=== PATIENT | female | born 1995 | race Caucasian/White ===

== ENCOUNTER 2017-09-20 23:32 | Emergency (ER) | payer SELFPAY | END 2017-09-20 23:54 | disposition left against medical advice (07) | LOC: ER 23:32 | DX: Z02.9 Encounter for administrative examinations, unspecified (principal) ==

== ENCOUNTER 2017-11-08 22:44 | Emergency (ER) | payer OTHER, SELFPAY ==
--- OUTSIDE RECORDS SUMMARY | 2017-11-08 22:46 | XMS REPORT | Clinical Summary ---
:1995 Author Organization [facility] Address [address] [place] [id number] Care Team Providers Name Role Phone Jhon Casillas MD Primary Care Provider Allergies Active Allergy Reactions Severity Noted Date Comments Penicillins Rash Low 02/03/2016 Current Medications Prescription Sig. Disp. Refills Start Date End Date Status QUEtiapine (SEROquel) TAKE 1 TABLET (50 30 tablet 0 02/22/2016 Active 50 MG tablet MG TOTAL) BY MOUTH 2 (TWO) TIMES A DAY. Active Problems No known active problems Family History Medical History Relation Name Comments No Known Problems Father No Known Problems Mother Relation Name Status Comments Father Alive Mother Alive Social History Tobacco Use Types Packs/Day Years Used Date Current Every Day Smoker Cigarettes Smokeless Tobacco: Never Used Alcohol Use Drinks/Week oz/Week Comments No Sex Assigned at Date Recorded Not on file Last Filed Vital Signs Not on file Plan of Treatment Health Maintenance Due Date Last Done Comments CHLAMYDIA SCREENING 2009 CERVICAL CANCER SCREENING 2014 INFLUENZA VACCINE 12/27/2017 Results Not on fileafter 11/07/2016
[2017-11-08 23:35] LABS: Urine Blood NEGATIVE (NEG); Urine Glucose NEGATIVE (NEG); Urine Protein NEGATIVE (NEG); Urine Specific Gravity 1.025 (1.005-1.030); Urine pH 5.5 (5.0-7.0)
[2017-11-08] MEDS ORDERED: NA CHLORIDE 0.9% 1,000 ML ONE (23:58)
[2017-11-08] MEDS ORDERED: ACETAMINOPHEN 500 MG TAB ONE (23:58)
[2017-11-09 00:48] LABS: Absolute Lymphocytes (CBC) 2.1 K/uL (0.7-4.9); Absolute Monocytes 1.3 K/uL (0.1-1.3); Absolute Neutrophil 10.3 K/uL (1.8-8.0); Basophils % 0.5 % (0-1.3); Eosinophils % 1.3 % (0-4.4); Hematocrit 35.1 % (36.0-45.0); Lymphocytes % 15.2 % (15.3-44.8); MCH 32.7 pg (27.0-35.0); MCV 92.7 fL (80-100); MPV 11.4 fL (7.6-11.3); Monocytes % 9.2 % (3.3-12.3); RBC Red Blood Cell Count 3.78 M/uL (3.86-4.86)
[2017-11-09 01:13] LABS: Bicarbonate 24 mEq/L (21-31); Glucose Level 79 mg/dL (65-120); Lipase 22 U/L (22-51); Potassium 3.1 mEq/L (3.6-5.0); Sodium Level 136 mEq/L (135-145)
[2017-11-09 01:19] LABS: ALT/SGPT 11 IU/L (10-60); AST/SGOT 17 IU/L (10-42); Albumin 3.4 g/dL (3.2-5.5); Alkaline Phosphatase 51 IU/L (42-121); Amylase Level 46 U/L (28-100); BUN Blood Urea Nitrogen 7 mg/dL (6-20); Bilirubin Direct < 0.1 mg/dL (0-0.2); Bilirubin Total 0.2 mg/dL (0.3-1.2); Protein, Total 6.6 g/dL (6.0-8.3)
[2017-11-09] MEDS ORDERED: POTASSIUM 25 MEQ EFFERV TAB ONE (02:10)
--- NOTE | 2017-11-09 03:08 | EDPHYS ---
Physician Documentation [facility] Name: Ann Kaufman Age: 22 yrs Sex: Female : 1995 Arrival Date: 11/08/2017 Time: 22:45 Bed 6 Private MD: ED Physician Tod Queen HPI: 11/08 23:15 This 22 yrs old Female presents to ER via Ambulatory with complaints of cp Abdominal Pain, Vaginal Pain - 19 Wks Preg. 23:15 The patient presents with abdominal pain in the lower abdomen. Onset: The cp symptoms/episode began/occurred today. The symptoms do not radiate. 23:15 Associated signs and symptoms: Pertinent negatives: anorexia, chest pain, constipation, cp diarrhea, dysuria, fever, hematuria, vaginal discharge, vomiting, vaginal bleeding or leakage of fluids. 23:15 The symptoms are described as crampy. Modifying factors: the symptoms are aggravated by cp pressure. Severity of pain: in the emergency department the pain is unchanged despite home interventions. Patient reports she is approximately 20 weeks gestation. 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 - Social history:: Smoking status: Patient uses tobacco products, 1/4 PPD. - Ebola Screening: : No symptoms or risks identified at this time. ROS: 23:20 Constitutional: Negative for body aches, chills, fever, poor PO intake. cp 23:20 Eyes: Negative for injury, pain, redness, and discharge. cp 23:20 ENT: Negative for drainage from ear(s), ear pain, sore throat, difficulty swallowing, difficulty handling secretions. 23:20 Cardiovascular: Negative for chest pain, edema, palpitations. 23:20 Respiratory: Negative for cough, shortness of breath, wheezing. 23:20 Abdomen/GI: Positive for abdominal pain, abdominal cramps, Negative for vomiting, diarrhea, constipation, anorexia, dysphagia, black/tarry stool, rectal bleeding. 23:20 Back: Negative for pain at rest, pain with movement, radiated pain. 23:20 : Negative for urinary symptoms, flank pain, vaginal bleeding, vaginal discharge, leakage of fluids. 23:20 MS/extremity: Negative for injury or acute deformity, decreased range of motion, pain, paresthesias. 23:20 Skin: Negative for cellulitis, rash. 23:20 Neuro: Negative for altered mental status, headache, weakness. 23:20 All other systems are negative. Exam: 23:28 Head/Face: Normocephalic, atraumatic. cp 23:28 Constitutional: The patient appears in no acute distress, alert, awake, non-toxic, well developed, well nourished, uncomfortable. 23:28 Eyes: Periorbital structures: appear normal, Conjunctiva: normal, no exudate, no cp injection, Sclera: no appreciated abnormality, Lids and lashes: appear normal, bilaterally. 23:28 ENT: External ear(s): are unremarkable, Nose: is normal, Mouth: Lips: moist, Oral mucosa: pink and intact, moist, Posterior pharynx: is normal, airway is patent, no erythema, no exudate. 23:28 Neck: ROM/movement: is normal, is supple, without pain, no range of motions limitations, no nuchal rigidity. 23:28 Chest/axilla: Inspection: normal, Palpation: is normal, no crepitus, no tenderness. 23:28 Cardiovascular: Rate: normal, Rhythm: regular, Edema: is not appreciated, JVD: is not appreciated. 23:28 Respiratory: the patient does not display signs of respiratory distress, Respirations: normal, no use of accessory muscles, no retractions, no splinting, no tachypnea, labored breathing, is not present, Breath sounds: are clear throughout, no decreased breath sounds, no stridor, no wheezing. 23:28 Abdomen/GI: Inspection: gravid appearance, is noted, Bowel sounds: active, all quadrants, Palpation: soft, in all quadrants, moderate abdominal tenderness, in the right lower quadrant and left lower quadrant, rebound tenderness, is not appreciated, involuntary guarding, is not appreciated. 23:28 Back: pain, is absent, ROM is normal, CVA tenderness, is absent, Straight leg raises: of both lower extremities does not illicit pain. 23:28 Musculoskeletal/extremity: Exam is negative for decreased range of motion, deformity, injury. 23:28 Skin: cellulitis, is not appreciated, no rash present. 23:28 Neuro: Orientation: to person, place \T\ time. Mentation: lucid, able to follow commands, Cerebellar function: is grossly normal, Motor: moves all fours, strength is normal, Sensation: no obvious gross deficits, Gait: is steady. Vital Signs: 23:12 BP 115 / 71; Pulse 93; Resp 18; Temp 99.1(O); Pulse Ox 99% ; Weight 81.65 kg; Height 5 ao ft. 3 in. (160.02 cm); Pain 7/10; 11/09 00:50 BP 99 / 61; Pulse 81; Resp 16; Pulse Ox 100% ; ao 02:30 BP 103 / 70; Pulse 79; Resp 16; Pulse Ox 100% on R/A; Pain 0/10; aa1 11/08 23:12 Body Mass Index 31.89 (81.65 kg, 160.02 cm) ao MDM: 11/08 23:06 Patient medically screened. cp 11/09 00:00 Differential diagnosis: appendicitis, Ovarian Torsion, Pelvic Inflammatory Disease, cp Pyelonephritis, urinary tract infection, pre-term labor. 03:05 Data reviewed: vital signs, nurses notes, lab test result(s). cp 03:05 Counseling: I had a detailed discussion with the patient and/or guardian regarding: the cp historical points, exam findings, and any diagnostic results supporting the discharge/admit diagnosis, the need for outpatient follow up, an OB/Gyne specialist, to return to the emergency department if symptoms worsen or persist or if there are any questions or concerns that arise at home. Response to treatment: the patient's symptoms have markedly improved after treatment, VSS. Pain improved with IV fluids and meds. FHTs noted. Will discharge to home for continued monitoring. 11/08 23:22 Order name: Urine Dipstick--Ancillary (enter results); Complete Time: 23:39 [facility] 11/08 23:22 Order name: Urine --Ancillary (enter results); Complete Time: 23:39 2 11/08 23:39 Interpretation: Normal except: URINE PREG POS. cp 11/08 23:40 Order name: Amylase, Serum; Complete Time: 01:46 cp 11/08 23:40 Order name: Basic Metabolic Panel; Complete Time: 01:46 11/09 01:46 Interpretation: Normal except: K 3.1; GFR 87. cp 11/08 23:40 Order name: CBC with Diff; Complete Time: 01:15 cp 11/09 01:15 Interpretation: Normal except: WBC 13.9; RBC 3.78; HCT 35.1; PLT 133; MPV 11.4; EDMUNDO% cp 73.8; LYM% 15.2; NEUT A 10.3. 11/08 23:40 Order name: Creatinine for Radiology; Complete Time: 01:15 cp 11/08 23:40 Order name: Hepatic Function; Complete Time: 01:46 cp 11/09 01:46 Interpretation: Normal except: BILIT 0.2. cp 11/08 23:40 Order name: Lipase; Complete Time: :46 cp 11/08 23:40 Order name: Urine Microscopic Only cp 11/08 23:40 Order name: Rh Type 11/09 02:07 Order name: Rh Typing; Complete Time: 02:12 EDMS 11/09 02:12 Interpretation: Reviewed. 11/08 23:40 Order name: IV Saline Lock; Complete Time: 00:19 cp 11/08 23:40 Order name: Labs collected and sent; Complete Time: 00:19 cp 11/08 23:40 Order name: FHT's; Complete Time: 00:47 cp Administered Medications: 00:10 Drug: Tylenol 1000 mg Route: PO; aa1 02:19 Follow up: Response: No adverse reaction; Pain is decreased aa1 00:18 Drug: NS 0.9% 1000 ml Route: IV; Rate: 1 bolus; Site: right antecubital; aa1 01:00 Follow up: IV Status: Completed infusion aa1 02:07 Drug: Potassium Effervescent Tablet 50 mEq Route: PO; aa1 02:56 Follow up: Response: No adverse reaction aa1 Disposition: 11/09/17 03:07 Discharged to Home. Impression: Lower abdominal pain, unspecified, related conditions, unspecified, second trimester. - Condition is Stable. - Discharge Instructions: Abdominal Pain During , Medicines During . - School release form, Medication Reconciliation Form, Thank You Letter, Antibiotic Education, Prescription Opioid Use form. - Follow up: Private Physician; When: private OB; Reason: Recheck today's complaints, next 1-2 days. - Problem is new. - Symptoms have improved. Addendum: 11/10/2017 06:00 Co-signature as Attending Physician, Tod Queen MD I agree with the assessment and c askew plan of care. Signatures: Dispatcher [employer] EDLizzie Jauregui, RN RN aa1 Tod Queen MD MD cha Page, Corey, PA PA cp Corrections: (The following items were deleted from the chart) 11/09 03:31 03:07 11/09/2017 03:07 Discharged to Home. Impression: Lower abdominal pain, aa1 unspecified; related conditions, unspecified, second trimester. Condition is Stable. Forms are Medication Reconciliation Form, Thank You Letter, Antibiotic Education, Prescription Opioid Use. Follow up: Private Physician; When: private OB; Reason: Recheck today's complaints, next 1-2 days. Problem is new. Symptoms have improved. cp
--- NOTE | 2017-11-09 03:08 | ER ---
Nurse's Notes [facility] Name: Ann Kaufman Age: 22 yrs Sex: Female : 1995 Arrival Date: 11/08/2017 Time: 22:45 Bed 6 Private MD: Diagnosis: Lower abdominal pain, unspecified; related conditions, unspecified, second trimester Presentation: 11/08 23:12 Presenting complaint: Patient states: pelvic pressure and cramping since this aa1 afternoon. Denies bleeding. Reports she is 20 weeks and has had confirmed IUP with her OB. Transition of care: patient was not received from another setting of care. Onset of symptoms was November 08, 2017. Risk Assessment: Do you want to hurt yourself or someone else? Patient reports no desire to harm self or others. Initial Sepsis Screen: Does the patient meet any 2 criteria? No. Patient's initial sepsis screen is negative. Does the patient have a suspected source of infection? No. Patient's initial sepsis screen is negative. Care prior to arrival: None. 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 - Social history:: Smoking status: Patient uses tobacco products, 1/4 PPD. - Ebola Screening: : No symptoms or risks identified at this time. Screenin:16 Abuse screen: Denies threats or abuse. Denies injuries from another. Nutritional aa1 screening: No deficits noted. Tuberculosis screening: No symptoms or risk factors identified. Fall Risk None identified. Assessment: 23:16 General: Appears in no apparent distress. comfortable, Behavior is calm, cooperative, aa1 appropriate for age. Pain: Complains of pain in groin and suprapubic area Quality of pain is described as crampy, pressure. Neuro: Level of Consciousness is awake, alert, obeys commands, Oriented to person, place, time, situation, Moves all extremities. Full function Gait is steady. Respiratory: Airway is patent Respiratory effort is even, unlabored, Respiratory pattern is regular, symmetrical. GI: Bowel sounds present X 4 quads. Abdomen is tender to palpation in suprapubic area. : Reports cramping, Denies vaginal bleeding. EENT: No signs and/or symptoms were reported regarding the EENT system. Derm: Skin is intact, is healthy with good turgor, Skin is pink, warm \T\ dry. Musculoskeletal: Circulation, motion, and sensation intact. Capillary refill < 3 seconds. 11/09 00:45 Reassessment: Patient appears in no apparent distress at this time. Patient and/or aa1 family updated on plan of care and expected duration. Pain level reassessed. Patient is alert, oriented x 3, equal unlabored respirations, skin warm/dry/pink. Awaiting lab results. 02:00 Reassessment: Patient appears in no apparent distress at this time. Patient and/or aa1 family updated on plan of care and expected duration. Pain level reassessed. Patient is alert, oriented x 3, equal unlabored respirations, skin warm/dry/pink. Awaiting lab results. 03:29 Reassessment: Patient appears in no apparent distress at this time. Patient is alert, aa1 oriented x 3, equal unlabored respirations, skin warm/dry/pink. Discussed d/c \T\ f/u instructions with pt \T\ significant other; denies questions or concerns at this time Patient states feeling better. Vital Signs: 11/08 23:12 BP 115 / 71; Pulse 93; Resp 18; Temp 99.1(O); Pulse Ox 99% ; Weight 81.65 kg; Height 5 ao ft. 3 in. (160.02 cm); Pain 7/10; 11/09 00:50 BP 99 / 61; Pulse 81; Resp 16; Pulse Ox 100% ; ao 02:30 BP 103 / 70; Pulse 79; Resp 16; Pulse Ox 100% on R/A; Pain 0/10; aa1 11/08 23:12 Body Mass Index 31.89 (81.65 kg, 160.02 cm) ao Vitals: 00:48 Heart Tones 140. aa1 ED Course: 11/08 22:45 Patient arrived in ED. ds1 23:06 Tod Hicks PA is PHCP. cp 23:06 Tod Queen MD is Attending Physician. cp 23:12 Lizzie Shea, RN is Primary Nurse. aa1 23:14 Triage completed. aa1 23:15 Arm band placed on right wrist. Patient placed in an exam room, on a stretcher. aa1 23:16 Patient has correct armband on for positive identification. Bed in low position. Call aa1 light in reach. Pulse ox on. NIBP on. 23:16 Urine collected: clean catch specimen. aa1 11/09 00:10 Missed attempt(s): 20 gauge in left antecubital area. Bleeding controlled, band aid aa1 applied, catheter tip intact. 00:15 Initial lab(s) drawn, by me, sent to lab. Inserted saline lock: 20 gauge in right aa1 antecubital area, using aseptic technique. Blood collected. 03:30 No provider procedures requiring assistance completed. IV discontinued, intact, aa1 bleeding controlled, No redness/swelling at site. Pressure dressing applied. Administered Medications: 00:10 Drug: Tylenol 1000 mg Route: PO; aa1 02:19 Follow up: Response: No adverse reaction; Pain is decreased aa1 00:18 Drug: NS 0.9% 1000 ml Route: IV; Rate: 1 bolus; Site: right antecubital; aa1 01:00 Follow up: IV Status: Completed infusion aa1 02:07 Drug: Potassium Effervescent Tablet 50 mEq Route: PO; aa1 02:56 Follow up: Response: No adverse reaction aa1 Outcome: 03:07 Discharge ordered by . cp 03:31 Discharged to home ambulatory, with significant other. aa1 03:31 Condition: good 03:31 Discharge instructions given to patient, significant other, Instructed on discharge instructions, follow up and referral plans. Demonstrated understanding of instructions, follow-up care. 03:31 Patient left the ED. aa1 Signatures: Lizzie Shea, RN RN aa1 Marietta Quach ds1 Tod Hicks PA PA cp Yoni Esquivel, RN RN ao
[2017-11-09 03:19] LABS: Calcium Oxalate Crystals- Ur FEW (NONE SEEN); Urine Bacteria <20 /HPF (<20); Urine Culture Reflex Order NOT NEEDED; Urine RBC <5 /HPF (NONE SEEN)
== END 2017-11-09 03:31 | disposition home or self-care (01) ==
LOC: ER 22:44
DX: O26.892 Other specified pregnancy related conditions, second trimester (principal); R10.30 Lower abdominal pain, unspecified; R10.2 Pelvic and perineal pain; F17.210 Nicotine dependence, cigarettes, uncomplicated; Z88.0 Allergy status to penicillin; Z3A.20 20 weeks gestation of pregnancy
CPT/HCPCS: 36415; 80048; 80076; 81003; 81015; 81025; 82150; 83690; 85025; 86901; 96360; 99284; J7030

== ENCOUNTER 2018-11-04 14:22 | Emergency (ER) | payer OTHER ==
--- OUTSIDE RECORDS SUMMARY | 2018-11-04 14:25 | XMS REPORT | Clinical Summary ---
:1995 [facility] Address [address] [place] [address] Care Team Providers Name Role Phone Jhon Casillas MD Primary Care Provider Allergies Active Allergy Reactions Severity Noted Date Comments Penicillins Rash Low 02/03/2016 Medications Medication Sig Dispensed Refills Start Date End Date Status QUEtiapine [...] Assigned at Date Recorded Not on file Job Start Date Occupation Industry Not on file Not on file Not on file Travel History Travel Start Travel End No recent travel history available. Last Filed Vital Signs Not on file Plan of Treatment Health Maintenance Due Date Last Done Comments INFLUENZA VACCINE 12/27/2018 Results Not on fileafter 11/03/2017 Advance Directives Patient has advance care planning documents on file. For more information, please contact:[facility] [place] [address]
--- OUTSIDE RECORDS SUMMARY | 2018-11-04 14:25 | XMS REPORT ---
:1995 [facility] Address [address] [place] [address] Dr. Nunn [address] [place] [id number] Care Team Providers Name Role Phone Unavailable Unavailable Unavailable Problems This patient has no known problems. Allergies, Adverse Reactions, Alerts This patient has no known allergies or adverse reactions. Medications This patient has no known medications.
[2018-11-04 16:32] LABS: RBC Red Blood Cell Count 4.24 M/uL (3.86-4.86)
[2018-11-04 16:34] LABS: Absolute Lymphocytes (CBC) 1.7 K/uL (0.7-4.9); Absolute Monocytes 0.9 K/uL (0.1-1.3); Absolute Neutrophil 6.9 K/uL (1.8-8.0); Basophils % 0.4 % (0-1.3); Eosinophils % 0.6 % (0-4.4); Lymphocytes % 17.9 % (15.3-44.8); MPV 10.1 fL (7.6-11.3)
[2018-11-04 16:44] LABS: BUN Blood Urea Nitrogen 8 mg/dL (7-18); Bicarbonate 26 mmol/L (21-32); Glucose Level 63 mg/dL (74-106); Potassium 3.5 mmol/L (3.5-5.1); Sodium Level 141 mmol/L (136-145)
[2018-11-04 17:12] LABS: Urine Blood NEGATIVE (NEG); Urine Glucose NEGATIVE (NEG); Urine Protein TRACE (NEG)
--- NOTE | 2018-11-04 17:16 | RAD REPORT ---
EXAM DESCRIPTION: US - Transvaginal OB - 11/04/2018 5:08 pm CLINICAL HISTORY: , vaginal bleeding COMPARISON: None. TECHNIQUE: Endovaginal sonography performed. FINDINGS: Normal shaped intrauterine gestational sac is identifiable. A small 2 x 0.5 centimeter sub chorionic hemorrhage is present not regarded as significant. No adnexal abnormality seen. Yolk sac and pole identified. Gestational sac and crown-rump length measurements yield an 8 wee k 0 day age. Calculated RAMESH is 06/16/2019. IMPRESSION: Single 8 week 0 day IUP. RAMESH is 06/16/2019. Heart rate is 145 BPM. Small subchorionic hemorrhages present not regarded as significant at that size. No adnexal abnormality.
--- NOTE | 2018-11-04 17:46 | EDPHYS ---
Physician Documentation [facility] Name: Ann Kaufman Age: 23 yrs Sex: Female : 1995 Arrival Date: 11/04/2018 Time: 14:25 Bed 17 Private MD: ED Physician Noe Lyons HPI: 11/04 16:06 This 23 yrs old Female presents to ER via Ambulatory with complaints of snw Vaginal Bleeding, + Preg <12wks. 16:06 The patient presents with vaginal bleeding that is light. Onset: The symptoms/episode snw began/occurred suddenly, last night, and improved today. Associated signs and symptoms: Pertinent positives: cramping. Severity of symptoms: At their worst the symptoms were mild. The patient is sexually active, reportedly has a single partner. The patient has not experienced similar symptoms in the past. [facility] 2 wks ago, confirmed . INTERIOR SPECIALIST: 14:48 LMP 08/2018 hb 16:06 2, Full Term 1, LMP 08/25/2018 snw Historical: - Allergies: 14:50 No Known Allergies; hb - PMHx: 14:50 Anxiety; hb - PSHx: 14:50 None; hb - Immunization history:: Adult Immunizations up to date. - Social history:: Smoking status: Patient/guardian denies using tobacco. - Ebola Screening: : No symptoms or risks identified at this time. ROS: 16:05 Constitutional: Negative for fever, chills, and weight loss, Eyes: Negative for injury, snw pain, redness, and discharge, ENT: Negative for injury, pain, and discharge, Neck: Negative for injury, pain, and swelling, Cardiovascular: Negative for chest pain, palpitations, and edema, Respiratory: Negative for shortness of breath, cough, wheezing, and pleuritic chest pain, Abdomen/GI: Negative for abdominal pain, nausea, vomiting, diarrhea, and constipation, Back: Negative for injury and pain, MS/Extremity: Negative for injury and deformity, Skin: Negative for injury, rash, and discoloration, Neuro: Negative for headache, weakness, numbness, tingling, and seizure. 16:05 : Positive for vaginal bleeding, LMP 08/25/18. Exam: 16:05 Constitutional: This is a well developed, well nourished patient who is awake, alert, snw and in no acute distress. Head/Face: Normocephalic, atraumatic. Eyes: Pupils equal round and reactive to light, extra-ocular motions intact. Lids and lashes normal. Conjunctiva and sclera are non-icteric and not injected. Cornea within normal limits. Periorbital areas with no swelling, redness, or edema. ENT: Nares patent. No nasal discharge, no septal abnormalities noted. Tympanic membranes are normal and external auditory canals are clear. Oropharynx with no redness, swelling, or masses, exudates, or evidence of obstruction, uvula midline. Mucous membranes moist. Neck: Trachea midline, no thyromegaly or masses palpated, and no cervical lymphadenopathy. Supple, full range of motion without nuchal rigidity, or vertebral point tenderness. No Meningismus. Chest/axilla: Normal chest wall appearance and motion. Nontender with no deformity. No lesions are appreciated. Cardiovascular: Regular rate and rhythm with a normal S1 and S2. No gallops, murmurs, or rubs. Normal PMI, no JVD. No pulse deficits. Respiratory: Lungs have equal breath sounds bilaterally, clear to auscultation and percussion. No rales, rhonchi or wheezes noted. No increased work of breathing, no retractions or nasal flaring. Abdomen/GI: Soft, non-tender, with normal bowel sounds. No distension or tympany. No guarding or rebound. No evidence of tenderness throughout. Back: No spinal tenderness. No costovertebral tenderness. Full range of motion. Skin: Warm, dry with normal turgor. Normal color with no rashes, no lesions, and no evidence of cellulitis. MS/ Extremity: Pulses equal, no cyanosis. Neurovascular intact. Full, normal range of motion. Neuro: Awake and alert, GCS 15, oriented to person, place, time, and situation. Cranial nerves II-XII grossly intact. Motor strength 5/5 in all extremities. Sensory grossly intact. Cerebellar exam normal. Normal gait. Psych: Awake, alert, with orientation to person, place and time. Behavior, mood, and affect are within normal limits. Vital Signs: 14:48 BP 117 / 82; Pulse 83; Resp 16; Temp 97.4; Pulse Ox 100% on R/A; Weight 81.65 kg; hb Height 5 ft. 4 in. (162.56 cm); Pain 0/10; 16:47 BP 109 / 71; Pulse 69; Resp 18; Pulse Ox 99% on R/A; Pain 0/10; em 18:00 BP 108 / 70; Pulse 81; Resp 16; Pulse Ox 100% on R/A; em 14:48 Body Mass Index 30.90 (81.65 kg, 162.56 cm) hb MDM: 15:58 Patient medically screened. snw 17:47 Data reviewed: vital signs, nurses notes, lab test result(s), radiologic studies. Data snw interpreted: Pulse oximetry: on room air is 99 %. Interpretation: normal. Counseling: I had a detailed discussion with the patient and/or guardian regarding: the historical points, exam findings, and any diagnostic results supporting the discharge/admit diagnosis, lab results, radiology results, the need for outpatient follow up, to return to the emergency department if symptoms worsen or persist or if there are any questions or concerns that arise at home. Response to treatment: There is no appreciated change of the patient's symptoms at this time. Special discussion: Based on the history and exam findings, there is no indication for further emergent testing or inpatient evaluation. I discussed with the patient/guardian the need to see the OB Gyne specialist for further evaluation of the symptoms. I discussed with the patient/guardian the need to see the primary care provider for further evaluation of the symptoms. 11/04 15:25 Order name: Urine Microscopic Only [facility] 11/04 15:57 Order name: Abo/rh Typing; Complete Time: 17:41 sn 11/04 15:57 Order name: Basic Metabolic Panel; Complete Time: 17: w 11/04 15:57 Order name: CBC with Diff; Complete Time: 17: w 11/04 16:37 Order name: Urine Dipstick--Ancillary (enter results) ag 11/04 16:37 Order name: Urine --Ancillary (enter results) ag 11/04 15:25 Order name: Urine Test (obtain specimen); Complete Time: 16:25 sn 11/04 15:25 Order name: Urine Dipstick-Ancillary (obtain specimen); Complete Time: 16:25 [facility] 11/04 15:57 Order name: IV Saline Lock; Complete Time: 16:25 snw 11/04 15:57 Order name: Labs collected and sent; Complete Time: 16:25 snw 11/04 15:57 Order name: NPO; Complete Time: 16:25 snw 11/04 15:57 Order name: US Transvaginal Ob; Complete Time: 17:22 snw 11/04 17:10 Order name: PO challenge: juice and crackers with peanut butter. Fsbs 63mg/dl; Complete snw Time: 17:26 Administered Medications: No medications were administered Disposition: 18:36 Co-signature as Attending Physician, Noe Lyons MD. rn Disposition: 11/04/18 17:45 Discharged to Home. Impression: Other abnormal uterine and vaginal bleeding, related conditions, unspecified. - Condition is Stable. - Discharge Instructions: First Trimester of , Pelvic Rest, Vaginal Bleeding During , First Trimester, [id number]. - Prescriptions for Vitamin 27- 0.8 mg Oral Tablet - take 1 tablet by ORAL route once daily; 60 tablet. - Medication Reconciliation Form, Thank You Letter, Antibiotic Education, Prescription Opioid Use form. - Follow up: Private Physician; When: 2 - 3 days; Reason: Recheck today's complaints, Continuance of care, Re-evaluation by your physician. Follow up: Emergency Department; When: As needed; Reason: Worsening of condition. Signatures: Dispatcher [employer] EDMS Alysa Salguero, MOTORCYCLE MAKER-C MOTORCYCLE MAKER-Csnw Fredi Zepeda, CHEF TEACHER CHEF TEACHER Noe Galindo MD MD rn Baxter, Heather, RN RN Corrections: (The following items were deleted from the chart) 18:24 17:45 11/04/2018 17:45 Discharged to Home. Impression: Other abnormal uterine and em vaginal bleeding; related conditions, unspecified. Condition is Stable. Forms are Medication Reconciliation Form, Thank You Letter, Antibiotic Education, Prescription Opioid Use. Follow up: Private Physician; When: 2 - 3 days; Reason: Recheck today's complaints, Continuance of care, Re-evaluation by your physician. Follow up: Emergency Department; When: As needed; Reason: Worsening of condition. snw
--- NOTE | 2018-11-04 17:46 | ER ---
Nurse's Notes [facility] Name: Ann Kaufman Age: 23 yrs Sex: Female : 1995 Arrival Date: 11/04/2018 Time: 14:25 Bed 17 Private MD: Diagnosis: Other abnormal uterine and vaginal bleeding; related conditions, unspecified Presentation: 11/04 14:47 Presenting complaint: Bright red vaginal bleeding after intercourse last night, lower hb abdominal cramping today. Pt reports she is approx 8 weeks , . Transition of care: patient was not received from another setting of care. Onset of symptoms was November 03, 2018. Risk Assessment: Do you want to hurt yourself or someone else? Patient reports no desire to harm self or others. Initial Sepsis Screen: Does the patient meet any 2 criteria? No. Patient's initial sepsis screen is negative. Does the patient have a suspected source of infection? No. Patient's initial sepsis screen is negative. Care prior to arrival: None. 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 - Social history:: Smoking status: Patient/guardian denies using tobacco. - Ebola Screening: : No symptoms or risks identified at this time. Screenin:35 Abuse screen: Denies threats or abuse. Nutritional screening: No deficits noted. em Tuberculosis screening: No symptoms or risk factors identified. Fall Risk None identified. Assessment: 16:35 General: Appears in no apparent distress. comfortable, Behavior is calm, cooperative, em Reports fever for 12-24 hours. Pain: Complains of pain in pelvis Pain currently is 0 out of 10 on a pain scale. Quality of pain is described as crampy. Neuro: Level of Consciousness is awake, alert, obeys commands, Oriented to person, place, time, situation. Cardiovascular: Capillary refill < 3 seconds Patient's skin is warm and dry. Respiratory: Airway is patent Respiratory effort is even, unlabored, Respiratory pattern is regular, symmetrical. GI: Abdomen is flat, Patient currently denies nausea, vomiting. : Reports vaginal bleeding that is bright red, Denies burning with urination. Derm: Skin is intact, is healthy with good turgor, Skin is pink, warm \T\ dry. Musculoskeletal: Capillary refill < 3 seconds, Range of motion: intact in all extremities. 16:40 Reassessment: The previous assessment is accurate, call light remains within reach. ss 17:41 Reassessment: Patient appears in no apparent distress at this time. Patient and/or em family updated on plan of care and expected duration. Pain level reassessed. Patient is alert, oriented x 3, equal unlabored respirations, skin warm/dry/pink. Vital Signs: 14:48 BP 117 / 82; Pulse 83; Resp 16; Temp 97.4; Pulse Ox 100% on R/A; Weight 81.65 kg; hb Height 5 ft. 4 in. (162.56 cm); Pain 0/10; 16:47 BP 109 / 71; Pulse 69; Resp 18; Pulse Ox 99% on R/A; Pain 0/10; em 18:00 BP 108 / 70; Pulse 81; Resp 16; Pulse Ox 100% on R/A; em 14:48 Body Mass Index 30.90 (81.65 kg, 162.56 cm) hb ED Course: 14:25 Patient arrived in ED. mr 14:48 Triage completed. hb 14:48 Arm band placed on. hb 15:57 Alysa Salguero FNP-C is [facility]. snw 15:57 Noe Lyons MD is Attending Physician. snw 16:02 Fredi Zepeda LVN is Primary Nurse. em 16:24 Initial lab(s) drawn, by oh, sent to lab. Urine collected: clean catch specimen, clear, jb1 earl colored. Inserted saline lock: 22 gauge antecubital area, using aseptic technique. Blood collected. 16:35 Patient has correct armband on for positive identification. Bed in low position. Call em light in reach. Adult w/ patient. Pulse ox on. NIBP on. 16:47 Ultrasound completed. Patient tolerated well. Notified REFINERY OPERATOR GAS [employer]ANT/PA mor. sg3 17:09 US Transvaginal Ob In Process Unspecified. EDMS 18:15 No provider procedures requiring assistance completed. IV discontinued, intact, em bleeding controlled, No redness/swelling at site. Pressure dressing applied. Administered Medications: No medications were administered Outcome: 17:45 Discharge ordered by . snw 18:16 Discharged to home ambulatory, with family. em 18:16 Condition: good 18:16 Discharge instructions given to patient, family, Instructed on discharge instructions, follow up and referral plans. medication usage, Demonstrated understanding of instructions, follow-up care, medications, Prescriptions given X 1. 18:24 Patient left the ED. em Signatures: Dispatcher [employer] EDDayne London jbAlysa Persaud, STATE FARM AGENT TEAM MEMBER-C STATE FARM AGENT TEAM MEMBER-Csnw AbnerAyana mr Zepeda, Fredi, ASSISTANT PROFESSOR OF PHILOSOPHY ASSISTANT PROFESSOR OF PHILOSOPHY em Colleen Colby RN RN Rashida Velazco RN RN Sudha Neville sg3 Corrections: (The following items were deleted from the chart) 17:08 16:47 Notified REFINERY OPERATOR [employer]/PA . sg3 sg3 18:16 16:47 BP 109 / 71; Pulse 69bpm; Resp 100bpm; Pulse Ox 99% RA; Pain 0/10; em em
[2018-11-04 18:41] LABS: Urine Amorphous Sediment 3+ /HPF (NONE SEEN); Urine Bacteria 20-50 /HPF (<20); Urine Culture Reflex Order REFLEXED; Urine RBC <5 /HPF (NONE SEEN)
== END 2018-11-04 18:24 | disposition home or self-care (01) ==
LOC: ER 14:22
DX: O46.91 Antepartum hemorrhage, unspecified, first trimester (principal); Z3A.08 8 weeks gestation of pregnancy
CPT/HCPCS: 36415; 76817; 80048; 81003; 81015; 81025; 85025; 86900; 86901; 87086; 87088; 99284

== ENCOUNTER 2019-02-16 11:47 | Emergency (ER) | payer OTHER ==
--- OUTSIDE RECORDS SUMMARY | 2019-02-16 11:50 | XMS REPORT ---
:1995 [facility] Address [address] [place] [address] Dr. Watson[address] [place] [id number] Care Team Providers Name Role Phone Unavailable Unavailable Unavailable Problems This patient has no known problems. Allergies, Adverse Reactions, Alerts This patient has no known allergies or adverse reactions. Medications This patient has no known medications.
--- OUTSIDE RECORDS SUMMARY | 2019-02-16 11:50 | XMS REPORT | Summary of Care ---
:1995 Author Organization [facility] Address [address] [place] [address] Care Team Providers Name Role Phone Svetlana Sanchez Primary Care Provider Reason for Referral (Routine) Status Reason Specialty Diagnoses / Referred By Referred To Procedures Contact Contact New Request Maternal Diagnoses Supervision of high risk in second trimester Svetlana Sanchez Medicine Procedures CONSULT MATERNAL MEDICINE ULTRASOUND Preferred Location: [facility] [address] [place] [address] Reason for Visit Reason Comments Care Encounter Details Date Type Department Care Team Description 02/12/2019 Routine [facility]- Svetlana Sanchez Supervision of high risk in second trimester (Primary Dx); Visit [facility] Maternal tobacco use in third trimester; [address] Substance abuse; [place], [place] Obesity affecting in first trimester; [address] [place], [place] History of bipolar disorder; [phone] [id number] Insufficient care in second trimester; [phone] Nausea and vomiting during ; [phone] Ketonuria; (Fax) Tubal ligation status Allergies Active Allergy Reactions Severity Noted Date Comments Latex Rash 11/26/2013 documented as of this encounter (statuses as of 02/12/2019) Medications Medication Sig Dispensed Refills Start Date End Date Status 25/iron Take by 0 Active fum/folic/dha mouth. (-1 ORAL) azithromycin 250 mg Take 1 tablet 1 Package 0 10/19/2018 02/12/2019 Discontinued tabletIndications: by mouth Respiratory daily. Take infection 500 mg day 1, then 250 mg days 2 to 5. documented as of this encounter (statuses as of 02/12/2019) Active Problems Problem Noted Date Insufficient care in second trimester 02/12/2019 Nausea and vomiting during 02/12/2019 Ketonuria 02/12/2019 Tubal ligation status 02/12/2019 History of bipolar disorder 10/19/2018 Obesity (BMI 30-39.9) 03/15/2018 Heartburn during 12/05/2017 Supervision of high risk , antepartum 2017 Tobacco use during 2017 Overview: Reports quit Obesity affecting 2017 Substance abuse 05/29/2016 Overview: hx of cocaine and synthetic marijuana, has not used since summer 2016 Estimated Date of Delivery Comments Yes 06/03/2019 Based on last menstrual period of 08/27/2018 (Within Weeks) documented as of this encounter (statuses as of 02/12/2019) Resolved Problems Problem Noted Date Resolved Date (spontaneous vaginal delivery) 03/17/2018 10/19/2018 Liveborn infant by vaginal delivery 03/17/2018 10/19/2018 38 weeks gestation of 03/15/2018 10/19/2018 heart rate decelerations affecting management of 03/15/2018 10/19/2018 mother GERD (gastroesophageal reflux disease) 03/15/2018 02/12/2019 Non-reassuring electronic monitoring tracing 03/15/2018 10/19/2018 Nuchal cord 12/14/2017 10/19/2018 Overview: Noted on usg UTI in 08/07/2017 10/19/2018 Overview: LANDON at next visit --neg History of miscarriage 2017 10/19/2018 Inmate in correctional facility 2017 10/19/2018 Flu vaccine need 2017 10/19/2018 Overview: Pending for next visit Nausea and vomiting during prior to 22 weeks 2017 10/19/2018 gestation Bipolar disease during in third trimester 2017 10/19/2018 Overview: Reports has not taken meds due to Absence of menstruation 12/11/2013 2017 documented as of this encounter (statuses as of 02/12/2019) Immunizations Name Administration Dates Next Due Influenza Virus Vaccine Quad IM 3+ YRS 08/31/2017 PPD (TB) 07/28/2017 Rubella 04/17/2008 Td 05/29/2007 documented as of this encounter Social History Tobacco Use Types Packs/Day Years Used Date Current Every Day Smoker Cigarettes 0.25 8 Started: 2009 Smokeless Tobacco: Never Used Alcohol Use Drinks/Week oz/Week Comments No Estimated Date of Delivery Comments Yes 06/03/2019 Based on last menstrual period of 08/27/2018 (Within Weeks) Sex Assigned at Date Recorded Not on file Job Start Date Occupation Industry Not on file Not on file Not on file Travel History Travel Start Travel End No recent travel history available. 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 Ask your healthcare provider how many times to do each exercise. Tailor sit Trunk turns Tailor sit This exercise makes your thigh, pelvic, and hip muscles more flexible. 1. Sit on the floor with the soles of your feet together. Your back should be straight. 2. Gently lean forward until you feel a mild stretch inyour hip and thigh muscles. Your back should remain straight. Dont push down on your legs with your hands. 3. Hold and count to 5, then relax. Trunk turns This helps make your trunk (from your shoulders to your hips) more flexible. 1. Sit on the floor with your legs crossed. Your back should be straight. 2. Put your left hand on your right knee. Rest your right hand on the floor to support yourself and help you balance. 3. Slowly twist right. To do this, turn your head, shoulders, and chest as far right as you comfortably can. Keep your hips, knees, and feet in place. 4. Hold for 5 counts. Then change sides and slowly twist left. Date Last Reviewed: 06/29/[address] [employer] [place] [address]. All rights reserved. This information is not intended as a substitute for professional medical care. Always follow your healthcare professional's instructions. Relieving Back Pain During : Wall Stretch, Body Bend Before trying these exercises, talk to your healthcare provider to make sure they are safe for you. Ask your healthcare provider how many times to do each exercise. Wall stretch Body bend Wall stretch This strengthens and loosens the muscles in your upper back: 4. Lean against a wall with a firm pillow or rolled towel under your shoulder blades. Your feet should be about 12 inches from the wall and shoulder-width apart. Point your chin down. 5. Breathe in. Push your shoulders, neck, and head against the wall. You will feel a stretch in yourshoulders. 6. Hold for 5 counts. Then breathe out, and relax your shoulders and neck. Body bend This strengthens your back and buttocks muscles: 5. Stand with your legs shoulder-width apart. Put your hands on your upper thighs and bend your knees slightly. 6. Slowly bend forward at the hips. Push your hips back and keep your shoulders up. Make sure your back is straight. Youll feel a stretch in your upper thighs. Youll also feel your back muscles holding you in position. 7. Hold for 5 counts, then straighten. Date Last Reviewed: 06/29/[address] [employer] [place] [address]. All rights reserved. This information is not intended as a substitute for professional medical care. Always follow your healthcare professional's instructions. Back Pain During : Moving Safely Learning the proper ways to bend, lift, and carry objects may help relieve back strain. It will alsohelp you protect your back after your baby is born. Remember , if youre having trouble protecting your back, its OK to ask the people around you for help! Bending Lifting Carrying Bending To protect your back as you bend: Put 1 foot slightly in front of the other. Bend at the knees and hips, pushing your hips backward. Keep your upper body as straight as you can. Face forward. Try to keep your ears, shoulders, and hips in a line. Dont hold your breath. Lifting To lift a large object or a child: Get as close to the load as you can. Face forward, to help keep your ears and shoulders aligned. Use the muscles in your thighs and buttocks to stand up. As you lift, tighten your stomach and pelvic floor muscles. Dont hold your breath. Avoid twisting. Carrying To carry a load safely: Carry an object or child in front of you, not resting on your hip. Break up your load into 2 smaller bags, if you can. Carry 1 bag on each side to maintain balance.Or, break the load into smaller ones and take more trips. Try to tighten your stomach and pelvic floormuscles as you walk. This helps take weight off your back. Date Last Reviewed: 06/29/201719990041-1465 [employer]. [address] [place] [address], [place] [address]. All rights reserved. This information is not intended as a substitute for professional medical care. Always follow your healthcare professional's instructions. Back Pain During : Positioning Yourself When standing, resting a foot on a low block can ease back pain. You likely position yourself differently now than you did before you were . Did you know that standing, sitting, or lying in certain ways can lead to back pain? To ease pain, use positions thatsupport your body comfortably. Tips for good posture Using good posture means holding yourself so that your spine is aligned and your muscles can work without strain. To use good posture: Raise your chest and head. Try to keep your ears lined up over your shoulders. Use your stomach muscles to pull in your stomach. This reduces the amount of weight your back must support. Keep your pelvis level. Think of your pelvis as a bowl of water that will spill if it tips too far forward or backward. Standing If you must stand for long periods, try to change positions every 15 minutes. This gives your muscles a break. When standing, also: Keep your legs slightly apart. This helps you balance your weight. Rest one foot on a book, ledge, or low stool. Every few minutes, switch legs. Wear comfortable shoes with padded soles and arch support, like athletic shoes. Sitting When sitting in a chair or car, make sure your spines lumbar curve is supported. Use a chair withlumbar support built in, or put a firm pillow against your lower back. Also try the following: Sit with your knees slightly lower than your hips. Dont cross your legs. Take deep breaths often. This helps keep your spine and stomach in the best position. Vary your activity each hour. For instance, get up from your desk and take a 5-minute walk aroundthe office. Lying down To lie safely and comfortably: Lie on your side with your knees slightly bent. This takes pressure off your uterus and improvesblood flow to your baby. Place pillows under your abdomen and between your knees. To get out of bed, roll onto your side. Use your arms to push yourself into a seated position. Scoot to the edge of the bed and place your feet on the floor. Lean forward, then use your leg muscles to stand. Consider investing in a firm mattress. Lifting Tip to safely lift: Do not bend over from the waist to pick things upsquat down, bend your knees, and keep your back straight. Date Last Reviewed: 06/29/201719993868-1667 [employer]. [address] [place] [address]. All rights reserved. This information is not intended as a substitute for professional medical care. Always follow your healthcare professional's instructions. documented in this encounter Progress Notes Svetlana Sanchez FNP - 02/12/2019 3:15 PM CDT Chief complaint: Chief Complaint Patient presents with Care HPI Ann Kaufman is a 23 year old female is a @ 24w1d here for visit. Patient's last menstrual period was 08/27/2018 (within weeks). Estimated Date of Delivery: 06/03/19 Pt has not been seen for care since 7 weeks, she reports problems with Medicaid. She complains of persistent nausea and vomiting and not being able to tolerate anything. Also complains of feeling of mucous in back of throat after smoking. Reports she had bad heartburn in last . She is taking PNV. She reports good FM. She denies any ctx/cramping, VB, LOF, KUNZ , visual disturbance, vaginal discharge or dysuria. She denies any foreign travel. She also denies any physical, sexual or emotional abuse. Histories OB History Para Term AB Living 3 1 1 1 1 SAB TAB Ectopic Multiple Live Births 1 0 1 # Outcome Date GA Lbr Tanner/2nd Weight Sex Delivery Anes PTL Lv 3 Current 2 Term 03/16/18 38w1d 6 lb 10.2 oz (3.01 kg) M VAGINAL EPI SRI 1 TAB 2016 8w0d Past Medical History: Diagnosis Date Anemia with previous . Bipolar affective disorder 2017 Substance abuse 2017 hx of cocaine and synthetic marijuana, has not used since summer 2016 Family History Problem Relation Age of Onset No Significant Medical Problems Mother No Significant Medical Problems Sister No Significant Medical Problems Brother No Significant Medical Problems Maternal Aunt No Significant Medical Problems Maternal Uncle No Significant Medical Problems Paternal Aunt No Significant Medical Problems Paternal Uncle No Significant Medical Problems Maternal Grandmother No Significant Medical Problems Maternal Grandfather No Significant Medical Problems Paternal Grandmother No Significant Medical Problems Paternal Grandfather Arthritis NoFHx Asthma NoFHx defects NoFHx Colon Cancer NoFHx Breast Cancer NoFHx Ovarian Cancer NoFHx Uterine Cancer NoFHx Cancer NoFHx Depression NoFHx Diabetes NoFHx Genetic NoFHx Heart NoFHx High cholesterol NoFHx Hypertension NoFHx Mental retardation NoFHx Neurological NoFHx Osteoporosis NoFHx Psychiatry NoFHx Other - see comments NoFHx Family Status Relation Name Status Mo Alive Fa Alive Sis Alive Bro Alive MAunt Alive MUnc Alive PAunt Alive PUnc Alive MGMo MGFa Alive PGMo PGFa NoFHx (Not Specified) No past surgical history on file. Social History Socioeconomic History Marital status: Single Spouse name: Not on file Number of children: Not on file Years of education: Not on file Highest education level: Not on file Occupational History Not on file Social Needs Financial resource strain: Not on file Food insecurity: Worry: Not on file Inability: Not on file Transportation needs: Medical: Not on file Non-medical: Not on file Tobacco Use Smoking status: Current Every Day Smoker Packs/day: 0.25 Years: 8.00 Pack years: 2.00 Types: Cigarettes Start date: 2009 Smokeless tobacco: Never Used Substance and Sexual Activity Alcohol use: No Drug use: No Types: Cocaine Comment: used cocaine and synthetic marijuana, last used summer 2016 Sexual activity: Yes Partners: Male control/protection: None Comment: last sexual intercourse 10/17/2018 Lifestyle Physical activity: Days per week: Not on file Minutes per session: Not on file Stress: Not on file Relationships Social connections: Talks on phone: Not on file Gets together: Not on file Attends mormon service: Not on file Active member of club or organization: Not on file Attends meetings of clubs or organizations: Not on file Relationship status: Not on file Intimate partner violence: Fear of current or ex partner: Not on file Emotionally abused: Not on file Physically abused: Not on file Forced sexual activity: Not on file Other Topics Concern Not on file Social History Narrative Sikhism preference is Christianity. Patient lives with mother and child. Social History Substance and Sexual Activity Sexual Activity Yes Partners: Male control/protection: None Comment: last sexual intercourse 10/17/2018 Labs No new labs, I have reviewed the patient's labs. and Labs are pending. Radiology Radiology pending. Allergies Ann is allergic to latex. Medications Ann has a current medication list which includes the following prescription(s ): 25/iron fum/folic/dha. Review of Systems Constitutional: Negative for appetite change, fatigue and fever. Eyes: Negative for visual disturbance. Respiratory: Negative. Cardiovascular: Negative for palpitations and leg swelling. Gastrointestinal: Positive for nausea and vomiting. Negative for abdominal pain , constipation and diarrhea. Genitourinary: Negative. Negative for dysuria, vaginal bleeding, vaginal discharge and pelvic pain. Musculoskeletal: Negative. Skin: Negative for rash. Neurological: Negative for dizziness, light-headedness and headaches. Psychiatric/Behavioral: Negative. BP 120/66 (BP Location: Right arm, Patient Position: Sitting, BP CUFF SIZE: Adult Medium) | Pulse 84 | Temp 36.7 C (98 F) (Oral) | Resp 16 | Ht 5' 4 " (1.626 m) | Wt 183 lb 2 oz (83.1 kg) | LMP 08/27/2018 (Within Weeks) | BMI 31.43 kg/m Pregravid BMI: 30.9 Physical Exam Vitals reviewed. Constitutional: She is oriented to person, place, and time. She appears well- developed and well-nourished. See flowsheet Cardiovascular: No peripheral edema present. Pulmonary/Chest: Normal inspiratory effort. Abdominal: Abdomen is soft. Neuro/Psychiatric: She has a normal mood and affect. She is oriented to person, place, and time. Skin: Skin normal. Assessment/Plan 1. Supervision of high risk in second trimester 24w1d PTL warnings reviewed Discussed importance of regular care Anatomy ultrasound ordered - CONSULT MATERNAL MEDICINE ULTRASOUND Preferred Location: [place] - CBC WITH DIFF; Future - GLUCOSE 1 HOUR POST PRANDIAL; Future - POCT URINALYSIS W/O SPECIFIC GRAVITY 2. Maternal tobacco use in third trimester Patient reports trying to quit 3. Substance abuse Denies substance use in 4. Obesity affecting in first trimester The patient is asked to make an attempt to improve diet and exercise patterns to aid in medical management of this problem. 5. History of bipolar disorder Denies complaints at this time 6. Insufficient care in second trimester Re-entry to care at 24 weeks, stress importance of follow up 7. Nausea and vomiting during Home remedies reviewed and Rx sent. Instructed to take OTC vitamin B6 and doxylamine BID. Pt does not like promethazine d/t side effects of drowsiness. 8. Ketonuria Large ketones on UA Pt does not want to attempt PO challenge, too late in clinic day for in clinic IV hydration Pt agreeable to go to ER for IV fluids and possible emetics and PO challenge 9. Tubal ligation status Sign consents at 28 weeks Return to clinic in 2 weeks. Discussed treatment options. Medications as ordered. Reviewed patient instructions and provided printed copy. at 24w1d This visit did not involve counseling and coordination that comprised more than 50% of the visit time. documented in this encounter Plan of Treatment Date Type Specialty Care Team Description 02/25/2019 Routine Visit [facility] Svetlana Sanchez FNP [address] [place] [address] [phone] Name Type Priority Associated Diagnoses Order Schedule CBC WITH DIFF LAB Routine Supervision of high risk Expected: 02/26/2019, in second Expires: 05/14/2019 trimester GLUCOSE 1 HOUR POST LAB Routine Supervision of high risk Expected: 2018, PRANDIAL in second Expires: 05/14/2019 trimester Health Maintenance Due Date Last Done Comments PNEUMOCOCCAL 0-64 YEARS COMBINED SERIES (1 08/03/1999 of 1 - PPSV23) HPV VACCINES (1 - Female 3-dose series) 2008 DTaP,Tdap,and Td Vaccines (2 - Tdap) 2012 05/29/2007 INFLUENZA VACCINE (#1) 2019 08/31/2017 PAP SMEAR 2020 2017, 04/17/2008 documented as of this encounter Procedures Procedure Name Priority Date/Time Associated Diagnosis Comments POCT URINALYSIS W/O Routine 02/12/2019 3:54 Supervision of high Results for this SPECIFIC GRAVITY PM CDT risk in procedure are in second trimester the results section. documented in this encounter Results POCT URINALYSIS W/O SPECIFIC GRAVITY (02/12/2019 3:54 PM CDT) POCT PH U 7 5 - 8 mg/dl POCT U LEUK EST 2+ Negative - Negative POCT U NIT Neg Negative - Negative POCT U PROT Trace Negative - Negative POCT U GLU Neg Negative - Negative POCT U KETONE 3+ Negative - Negative POCT U BLD Neg Negative - Negative Specimen Urine - URINE, CLEAN CATCH documented in this encounter Visit Diagnoses Diagnosis Supervision of high risk in second trimester - Primary Unspecified high-risk Maternal tobacco use in third trimester Substance abuse Other, mixed, or unspecified nondependent drug abuse, unspecified Obesity affecting in first trimester History of bipolar disorder Personal history of affective disorder Insufficient care in second trimester Nausea and vomiting during Ketonuria Acetonuria Tubal ligation status documented in this encounter Insurance Payer Benefit Plan / Subscriber ID Effective Dates Phone Address Type Group [employer] MEDICAID OF xxxxxxxxx 2018-[place] [phone] Medicaid [place] [id number] [place] [phone] (Home) [address] [place] [id number] documented as of this encounter Advance Directives Name Relationship Healthcare Agent Relationship Communication Mother Primary healthcare agent
--- OUTSIDE RECORDS SUMMARY | 2019-02-16 11:50 | XMS REPORT | Clinical Summary ---
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
[2019-02-16] MEDS ORDERED: NA CHLORIDE 0.9% 1,000 ML ONE (13:28)
[2019-02-16] MEDS ORDERED: PROMETHAZINE 25 MG/ML VIAL ONE ×2 (13:32→15:34)
[2019-02-16 13:53] LABS: Basophils % 1.2 % (0-1.3); Hematocrit 38.7 % (36.0-45.0); Lymphocytes % 13.6 % (15.3-44.8); MPV 11.9 fL (7.6-11.3); RBC Red Blood Cell Count 4.18 M/uL (3.86-4.86)
[2019-02-16 14:16] LABS: ALT/SGPT 26 U/L (12-78); AST/SGOT 17 U/L (15-37); Albumin 3.6 g/dL (3.4-5.0); Alkaline Phosphatase 81 U/L (45-117); BUN Blood Urea Nitrogen 4 mg/dL (7-18); Bicarbonate 21 mmol/L (21-32); Bilirubin Direct 0.1 mg/dL (0-0.2); Bilirubin Total 0.5 mg/dL (0.2-1.0); Glucose Level 78 mg/dL (74-106); Lipase 78 U/L (73-393); Potassium 3.7 mmol/L (3.5-5.1); Protein, Total 7.9 g/dL (6.4-8.2); Sodium Level 137 mmol/L (136-145)
[2019-02-16 15:05] LABS: Urine Amorphous Sediment 2+ /HPF (NONE SEEN); Urine Bacteria 20-50 /HPF (<20); Urine Culture Reflex Order REFLEXED; Urine RBC <5 /HPF (NONE SEEN)
--- NOTE | 2019-02-16 15:18 | EDPHYS ---
Physician Documentation [facility] Name: Ann Kaufman Age: 23 yrs Sex: Female : 1995 Arrival Date: 02/16/2019 Time: 11:49 Bed 28 Private MD: ED Physician Lucero Alamo HPI: 02/16 15:09 This 23 yrs old Female presents to ER via Ambulatory with complaints of snw Vomiting - 24 wks preg, Dehydration. 15:09 The patient presents to the emergency department with nausea, vomiting. Onset: The snw symptoms/episode began/occurred and became persistent. Possible causes: . Associated signs and symptoms: Pertinent positives: abdominal pain, nausea, vomiting. Severity of symptoms: At their worst the symptoms were moderate. The patient has experienced similar episodes in the past, multiple times. The patient has been recently seen by a physician: the patient's primary care provider, 2 day(s) ago. PARAMEDICAL AIDE: 12:11 2, Full Term 1 la1 Historical: - Allergies: 12:11 No Known Allergies; la1 - PMHx: 12:11 Anxiety; la1 - Immunization history:: Adult Immunizations up to date. - Social history:: Smoking status: Patient/guardian denies using tobacco. - Ebola Screening: : No symptoms or risks identified at this time. ROS: 15:07 Eyes: Negative for injury, pain, redness, and discharge, ENT: Negative for injury, snw pain, and discharge, Neck: Negative for injury, pain, and swelling. 15:07 Respiratory: Negative for shortness of breath, cough, wheezing, and pleuritic chest pain. 15:07 Back: Negative for injury and pain, : Negative for injury, bleeding, discharge, and swelling, MS/Extremity: Negative for injury and deformity, Skin: Negative for injury, rash, and discoloration, Neuro: Negative for headache, weakness, numbness, tingling, and seizure. 15:07 Constitutional: Positive for body aches. 15:07 Cardiovascular: Positive for palpitations. 15:07 Abdomen/GI: Positive for nausea and vomiting, abdominal cramps. Exam: 15:04 Constitutional: This is a well developed, well nourished patient who is awake, alert, snw and in no acute distress. Head/Face: Normocephalic, atraumatic. Eyes: Pupils equal round and reactive to light, extra-ocular motions intact. Lids and lashes normal. Conjunctiva and sclera are non-icteric and not injected. Cornea within normal limits. Periorbital areas with no swelling, redness, or edema. ENT: Nares patent. No nasal discharge, no septal abnormalities noted. Tympanic membranes are normal and external auditory canals are clear. Oropharynx with no redness, swelling, or masses, exudates, or evidence of obstruction, uvula midline. Mucous membranes moist. Neck: Trachea midline, no thyromegaly or masses palpated, and no cervical lymphadenopathy. Supple, full range of motion without nuchal rigidity, or vertebral point tenderness. No Meningismus. Chest/axilla: Normal chest wall appearance and motion. Nontender with no deformity. No lesions are appreciated. Cardiovascular: Regular rate and rhythm with a normal S1 and S2. No gallops, murmurs, or rubs. Normal PMI, no JVD. No pulse deficits. Respiratory: Lungs have equal breath sounds bilaterally, clear to auscultation and percussion. No rales, rhonchi or wheezes noted. No increased work of breathing, no retractions or nasal flaring. Back: No spinal tenderness. No costovertebral tenderness. Full range of motion. MS/ Extremity: Pulses equal, no cyanosis. Neurovascular intact. Full, normal range of motion. Neuro: Awake and alert, GCS 15, oriented to person, place, time, and situation. Cranial nerves II-XII grossly intact. Motor strength 5/5 in all extremities. Sensory grossly intact. Cerebellar exam normal. Normal gait. 15:04 Skin: Appearance: Color: pale. Vital Signs: 12:11 Pulse 77; Resp 16; Temp 97.9; Pulse Ox 100% on R/A; Weight 83.01 kg; Height 5 ft. 4 in. la1 (162.56 cm); 12:12 BP 112 / 57; la1 13:00 BP 122 / 60; Pulse 88; Resp 15; Pulse Ox 100% on R/A; rv 14:00 BP 118 / 62; Pulse 76; Resp 16; Pulse Ox 100% on R/A; rv 15:00 BP 106 / 63; Pulse 78; Resp 15; Pulse Ox 98% on R/A; rv 12:11 Body Mass Index 31.41 (83.01 kg, 162.56 cm) la1 MDM: 13:29 Patient medically screened. snw 15:18 Data reviewed: vital signs, nurses notes. Data interpreted: Pulse oximetry: on room air snw is 98 %. Interpretation: normal. Counseling: I had a detailed discussion with the patient and/or guardian regarding: the historical points, exam findings, and any diagnostic results supporting the discharge/admit diagnosis, lab results, the need for outpatient follow up, to return to the emergency department if symptoms worsen or persist or if there are any questions or concerns that arise at home. Response to treatment: the patient's symptoms have markedly improved after treatment. Special discussion: Based on the history and exam findings, there is no indication for further emergent testing or inpatient evaluation. I discussed with the patient/guardian the need to see the OB Gyne specialist for further evaluation of the symptoms. I discussed with the patient/guardian the need to see the primary care provider for further evaluation of the symptoms. 02/16 13:30 Order name: Basic Metabolic Panel [facility] 02/16 13:30 Order name: CBC with Diff; Complete Time: 14:28 w 02/16 13:30 Order name: Creatinine for Radiology; Complete Time: 14:28 [facility] 02/16 13:30 Order name: Hepatic Function; Complete Time: 14:28 snw 02/16 13:30 Order name: Lipase; Complete Time: 14:28 snw 02/16 13:30 Order name: Urine Microscopic Only; Complete Time: 15:13 [facility] 02/16 13:31 Order name: Basic Metabolic Panel; Complete Time: 14:28 EDMS 02/16 14:27 Order name: Urine Dipstick--Ancillary (enter results) eb 02/16 14:27 Order name: Urine --Ancillary (enter results) eb 02/16 13:30 Order name: IV Saline Lock; Complete Time: 13:42 snw 02/16 13:30 Order name: Labs collected and sent; Complete Time: 13:42 [facility] 02/16 13:30 Order name: Urine Dipstick-Ancillary (obtain specimen); Complete Time: 14:37 snw Administered Medications: 13:35 Drug: NS 0.9% 1000 ml Route: IV; Rate: 1 bolus; Site: left antecubital; rv 14:37 Follow up: IV Status: Completed infusion; IV Intake: 1000ml rv 15:16 Follow up: IV Status: Completed infusion; IV Intake: 1000ml rv 13:35 Drug: Phenergan 12.5 mg Route: IVP; Site: left antecubital; rv 15:16 Follow up: Response: No adverse reaction; Marked relief of symptoms; Nausea is decreasedrv 15:27 Drug: Macrobid 100 mg Route: PO; rv 15:47 Follow up: Response: Medication administered at discharge. rv 15:45 Drug: Phenergan 25 mg Route: IVP; Site: left antecubital; rv 15:48 Follow up: Response: Medication administered at discharge. rv Disposition: 02/17 07:11 Co-signature as Attending Physician, Lucero Alamo MD. ma2 Disposition: 02/16/19 15:17 Discharged to Home. Impression: Urinary tract infection, site not specified, state, Hyperemesis gravidarum with metabolic disturbance, Dehydration. - Condition is Stable. - Discharge Instructions: Hyperemesis Gravidarum, Morning Sickness, Eating Plan for Hyperemesis Gravidarum, and Urinary Tract Infection, Rehydration, Adult. - Prescriptions for Macrobid 100 mg Oral Capsule - take 1 capsule by ORAL route every 12 hours for 10 days; 20 capsule. promethazine 25 mg Oral Tablet - take 1 tablet by ORAL route every 6 hours As needed; 20 tablet. - Medication Reconciliation Form, Thank You Letter, Antibiotic Education, Prescription Opioid Use form. - Follow up: Private Physician; When: 2 - 3 days; Reason: Recheck today's complaints, Continuance of care, Re-evaluation by your physician. Follow up: Emergency Department; When: As needed; Reason: Worsening of condition. - Notes: To L\T\amp;D upon discharge from ED for monitoring Signatures: Dispatcher [employer] EDMS Alysa Salguero, SCOTT-C SKIFF OPERATOR-Stoney Morales RN RN la1 Lucero Alamo MD MD ma2 Teddy Lanier RN RN rv Corrections: (The following items were deleted from the chart) 02/16 15:48 15:17 02/16/2019 15:17 Discharged to Home. Impression: Urinary tract infection, site rv not specified; state; Hyperemesis gravidarum with metabolic disturbance; Dehydration. Condition is Stable. Forms are Medication Reconciliation Form, Thank You Letter, Antibiotic Education, Prescription Opioid Use. Follow up: Private Physician; When: 2 - 3 days; Reason: Recheck today's complaints, Continuance of care, Re-evaluation by your physician. Follow up: Emergency Department; When: As needed; Reason: Worsening of condition. snw
--- NOTE | 2019-02-16 15:18 | ER ---
Nurse's Notes [facility] Name: Ann Kaufman Age: 23 yrs Sex: Female : 1995 Arrival Date: 02/16/2019 Time: 11:49 Bed 28 Private MD: Diagnosis: Urinary tract infection, site not specified; state;Hyperemesis gravidarum with metabolic disturbance;Dehydration Presentation: 02/16 12:12 Presenting complaint: Patient states: for the last week I cannot keep anything down, I la1 saw my OB doc and I had ketones in my urine on and I couldn't make it up here till today. Transition of care: patient was not received from another setting of care. Onset of symptoms was February 16, 2019. Risk Assessment: Do you want to hurt yourself or someone else? Patient reports no desire to harm self or others. Initial Sepsis Screen: Does the patient meet any 2 criteria? No. Patient's initial sepsis screen is negative. Does the patient have a suspected source of infection? No. Patient's initial sepsis screen is negative. Care prior to arrival: None. 12:12 Method Of Arrival: Ambulatory la1 12:12 Acuity: DARWIN 3 la1 Triage Assessment: 13:39 GI: Reports lower abdominal pain, vomiting. rv HEMMER LOCKSTITCH: 12:11 2, Full Term 1 la1 Historical: - Allergies: 12:11 No Known Allergies; la1 - PMHx: 12:11 Anxiety; la1 - Immunization history:: Adult Immunizations up to date. - Social history:: Smoking status: Patient/guardian denies using tobacco. - Ebola Screening: : No symptoms or risks identified at this time. Screenin:39 Abuse screen: Denies threats or abuse. Denies injuries from another. Nutritional rv screening: No deficits noted. Tuberculosis screening: No symptoms or risk factors identified. Fall Risk None identified. Assessment: 13:37 General: Appears in no apparent distress. uncomfortable, Behavior is calm, cooperative. rv Pain: Complains of pain in abdomen. Pain: Pain currently is 8 out of 10 on a pain scale. Quality of pain is described as crampy. Neuro: Level of Consciousness is awake, alert, obeys commands, Oriented to person, place, time, situation. Cardiovascular: Patient's skin is warm and dry. Respiratory: Airway is patent. GI: Abdomen is round non-distended, Pt is actively vomiting clear fluid. : No signs and/or symptoms were reported regarding the genitourinary system. EENT: No signs and/or symptoms were reported regarding the EENT system. Derm: Skin is intact. Musculoskeletal: No signs and/or symptoms reported regarding the musculoskeletal system. 13:38 Reassessment: patient is actively vomiting. started IV line. referred to Alysa. given rv NS bolus and Phenergan. patient feels more relaxed and comfortable. 15:10 Reassessment:. rv 15:14 Reassessment: Patient appears in no apparent distress at this time. Patient and/or rv family updated on plan of care and expected duration. Pain level reassessed. Patient is alert, oriented x 3, equal unlabored respirations, skin warm/dry/pink. awaiting urine microscopy result. Patient states feeling better. Patient states symptoms have improved. 15:46 Reassessment: patient sent to L\T\D after discharge. rv Vital Signs: 12:11 Pulse 77; Resp 16; Temp 97.9; Pulse Ox 100% on R/A; Weight 83.01 kg; Height 5 ft. 4 in. la1 (162.56 cm); 12:12 BP 112 / 57; la1 13:00 BP 122 / 60; Pulse 88; Resp 15; Pulse Ox 100% on R/A; rv 14:00 BP 118 / 62; Pulse 76; Resp 16; Pulse Ox 100% on R/A; rv 15:00 BP 106 / 63; Pulse 78; Resp 15; Pulse Ox 98% on R/A; rv 12:11 Body Mass Index 31.41 (83.01 kg, 162.56 cm) la1 ED Course: 11:49 Patient arrived in ED. as 11:55 Alysa Salguero FNP-C [facility]. snw 11:55 Lucero Alamo MD is Attending Physician. snw 12:11 Arm band placed on right wrist. la1 12:13 Triage completed. la1 13:30 Inserted saline lock: 22 gauge in left antecubital area, using aseptic technique. Blood rv collected. 13:30 Initial lab(s) drawn, by mn, sent to lab. rv 13:36 Yannick, Teddy, RN is Primary Nurse. rv 13:39 Patient has correct armband on for positive identification. Bed in low position. Call rv light in reach. Side rails up X 1. Adult w/ patient. Pulse ox on. NIBP on. vomit bag given warm blanket. head of bed elevated.. 13:42 Basic Metabolic Panel Sent. rv 15:14 No provider procedures requiring assistance completed. IV discontinued, intact, rv bleeding controlled, No redness/swelling at site. Pressure dressing applied. Administered Medications: 13:35 Drug: NS 0.9% 1000 ml Route: IV; Rate: 1 bolus; Site: left antecubital; rv 14:37 Follow up: IV Status: Completed infusion; IV Intake: 1000ml rv 15:16 Follow up: IV Status: Completed infusion; IV Intake: 1000ml rv 13:35 Drug: Phenergan 12.5 mg Route: IVP; Site: left antecubital; rv 15:16 Follow up: Response: No adverse reaction; Marked relief of symptoms; Nausea is decreasedrv 15:27 Drug: Macrobid 100 mg Route: PO; rv 15:47 Follow up: Response: Medication administered at discharge. rv 15:45 Drug: Phenergan 25 mg Route: IVP; Site: left antecubital; rv 15:48 Follow up: Response: Medication administered at discharge. rv Intake: 14:37 IV: 1000ml; Total: 1000ml. rv 15:16 IV: 1000ml; Total: 2000ml. rv Outcome: 15:14 Discharged to home ambulatory, with family. rv 15:14 Condition: improved 15:17 Discharge ordered by . snw 15:45 Discharge instructions given to patient, Instructed on discharge instructions, follow rv up and referral plans. medication usage, Demonstrated understanding of instructions, follow-up care, medications, Prescriptions given X 2. 15:48 Patient left the ED. rv Signatures: Alysa Salguero, EXTENSION SERVICE SUPERVISOR-C EXTENSION SERVICE SUPERVISOR-Inga De Luna Lee RN RN Teddy Germain RN RN rv Corrections: (The following items were deleted from the chart) 13:40 13:39 vomit bad. given warm blanket. head of bed elevated.. rv rv
[2019-02-16] MEDS ORDERED: NITROFURAN MACRO 100 MG CAP PO ONE (15:24)
[2019-02-16 16:07] VITALS: TEMP 97.9
[2019-02-16 16:11] VITALS: BP 106/63; O2SAT 98
[2019-02-16 18:08] LABS: Urine Blood NEGATIVE (NEG); Urine Glucose NEGATIVE (NEG); Urine Protein TRACE (NEG)
== END 2019-02-16 15:48 | disposition home or self-care (01) ==
LOC: ER 11:47
DX: O23.42 Unspecified infection of urinary tract in pregnancy, second trimester (principal); Z3A.24 24 weeks gestation of pregnancy; O21.1 Hyperemesis gravidarum with metabolic disturbance; E86.0 Dehydration
CPT/HCPCS: 96361; 85025; 80048; 36415; 81025; 80076; 83690; 96374; 99284; J2550 ×2; J7030; 81003; 81015

== ENCOUNTER 2020-12-20 16:43 | Emergency (ER) | payer OTHER ==
--- OUTSIDE RECORDS SUMMARY | 2020-12-20 16:45 | XMS REPORT | Continuity of Care Document ---
:[address] [facility] t Address [address] [place] [address] Care Team Providers Name Role Phone Everardo Casillas MD Primary Care Physician Pob1, Care Clinic Attending Clinician Unavailable Juan LINDSEYP, C Attending Clinician Daniel SUPERVISORY INVESTIGATIVE SPECIALIST, N Attending Clinician Kendall REAGAN, F Attending Clinician Doctor Unassigned, Name Attending Clinician Unavailable Kendall REAGAN, F Admitting Clinician Problems This patient has no known problems. Allergies, Adverse Reactions, Alerts Allergy Allergy Status Severity Reaction(s) Onset Inactive Treating Comm ents Source Name Type Date Date Clinician Penicill Propensi Active Rash Housto n ins ty to 02-02 Methodi adverse 00:00: st reaction 00 s to drug Family History Family Member Diagnosis Comments Start Date Stop Date Source Natural father No Known Problems Lila Sotelo Natural mother No Known Problems Lila Sotelo Social History Social Habit Start Date Stop Date Quantity Comments Source History of Cigarette Smoker Mason Sotelo tobacco use Tobacco use and 2016-02-04 2016-02-04 Never used Mason Torres ethodist exposure 00:00:00 00:00:00 Alcohol intake 2016-02-04 2016-02-04 Current [facility] thodist 00:00:00 00:00:00 non-drinker of alcohol (finding) Sex Ass[birth year] Mason Torres ethodist 00:00:00 00:00:00 Smoking Status Start Date Stop Date Source Current every day smoker 2016-02-04 00:00:00 Lila Sotelo Medications Ordered Filled Start Stop Current Ordering Indication Dosage Frequency Signature Comments Components Source Medication Medication Date Date Medication? Clinician (SIG) Name Name QUEtiapine Yes TAKE 1 [place] on (SEROquel) - TABLET (50 Met hodi 50 MG 00:00: MG TOTAL) st tablet 00 BY MOUTH 2 (TWO) TIMES A DAY. Procedures This patient has no known procedures. Plan of Care Planned Activity Planned Date Details Comments Source Future Scheduled 2020-12-27 INFLUENZA VACCINE Leslyeto n [facility] Test 00:00:00 [code = INFLUENZA VACCINE] Future Scheduled 2014 Screening for Mason Haque thodist Test 00:00:00 malignant neoplasm of cervix (procedure) [code = 411551349] Future Scheduled 2005 COVID-19 VACCINE (1) Lila smith Buddhist Test 00:00:00 [code = COVID-19 VACCINE (1)] Encounters Start End Encounter Admission Attending Care Care Encounter Source Date/Time Date/Time Type Type Clinicians Facility Department ID 2019-11-14 2019-11-14 Urgent Pob1, Acute [facility] [id number] 13:31:21 14:43:12 [facility] [id number] [place] [id number] Professio [id number] nal [address] 2019-10-22 2019-10-22 [facility] [id number] 00:00:00 00:00:00 Valarie Morgan CLOTH WINDING SUPERVISOR [id number] [facility] [id number] MATERNAL [id number] & CHILD 107 [facility] 2019-07-30 2019-07-30 [facility]phone [facility] [id number] 00:00:00 00:00:00 Svetlana Ramirez CLOTH WINDING SUPERVISOR [id number] [facility] [id number] MATERNAL [phone] & CHILD 107 [facility] 2019-07-15 2019-07-15 [facility] [id number] 10:31:49 11:05:59 Svetlana N CLOTH WINDING SUPERVISOR [id number] Visit REGIONAL [id number] MATERNAL [id number] & CHILD 107 [facility] 2019-07-11 2019-07-11 [facility]phone [facility] [id number] 00:00:00 00:00:00 Svetlana N CLOTH WINDING SUPERVISOR [id number] REGIONAL [id number] MATERNAL [id number] & CHILD 107 [facility] 2019-06-14 2019-06-16 Hospital YISSEL Argueta [id number] 08:04:00 13:27:00 Encounter [place] L[place]AY [id number] [place] [id number] 2019-06-14 2019-06-14 Orders Doctor YISSEL [id number] 00:00:00 00:00:00 Only Unassigned, GREGORY [id number] [facility] .[id number] [id number] 2019-06-12 2019-06-12 [facility] [id number] 16:01:44 16:27:38 Svetlana N CLOTH WINDING SUPERVISOR [id number] Visit REGIONAL [id number] MATERNAL [id number] & CHILD 107 [facility] 2019-02-12 2019-02-12 [facility] [id number] 15:19:53 16:16:27 Svetlana N CLOTH WINDING SUPERVISOR [id number] Visit REGIONAL [id number] MATERNAL [id number] & CHILD 107 [facility] Results This patient has no known results.
[2020-12-20] MEDS ORDERED: AMOX/K CLAV 875 MG TAB ONE (18:12)
[2020-12-20] MEDS ORDERED: KETOROLAC 30 MG/ML INJ ONE (18:12)
--- NOTE | 2020-12-22 16:47 | ER ---
Nurse's Notes [facility] Name: Ann Kaufman Age: 25 yrs Sex: Female : 1995 Arrival Date: 12/20/2020 Time: 16:43 Bed 5 Private MD: Diagnosis: Dental caries, unspecified-left upper and lower Presentation: 12/20 17:01 Chief complaint: Patient states: dental pain that began 1 month ago, but is getting ss worse. Coronavirus screen: Client denies travel out of the [place] in the last 14 days. Ebola Screen: Patient denies exposure to infectious person. Patient denies travel to an Ebola-affected area in the 21 days before illness onset. Initial Sepsis Screen: Does the patient meet any 2 criteria? No. Patient's initial sepsis screen is negative. Does the patient have a suspected source of infection? No. Patient's initial sepsis screen is negative. Risk Assessment: Do you want to hurt yourself or someone else? Patient reports no desire to harm self or others. Onset of symptoms was October 2020. 17:01 Method Of Arrival: Ambulatory ss 17:01 Acuity: DARWIN 4 ss PRIMER CHARGER: 17:41 LMP 11/21/2020 kg Historical: - Allergies: 17:03 No Known Allergies; ss - Home Meds: 17:03 None [Active]; ss - PMHx: 17:03 Anxiety; ss - PSHx: 17:03 None; ss - Immunization history:: Adult Immunizations up to date. - Social history:: Smoking status: Patient reports the use of cigarette tobacco products, smokes one-half pack cigarettes per day. - Family history:: not pertinent. Screenin:41 Abuse screen: Denies threats or abuse. Denies injuries from another. Nutritional kg screening: No deficits noted. Tuberculosis screening: No symptoms or risk factors identified. Fall Risk None identified. No fall in past 12 months (0 pts). No secondary diagnosis (0 pts). No IV (0 pts). Ambulatory Aid- None/Bed Rest/Nurse Assist (0 pts). Gait- Normal/Bed Rest/Wheelchair (0 pts) Mental Status- Oriented to own ability (0 pts). Total Birch Fall Scale indicates No Risk (0-24 pts). Assessment: 17:39 General: Appears in no apparent distress. Behavior is calm, cooperative, appropriate kg for age, quiet. Pain: Complains of pain in Upper and lower jaw/ wisdom teeth on left side. Neuro: No deficits noted. Cardiovascular: No deficits noted. Respiratory: No deficits noted. GI: No deficits noted. : No signs and/or symptoms were reported regarding the genitourinary system. EENT: Reports pain in Upper and lower back of jaw/ wisdom teeth on left side. Swelling. Vital Signs: 17:01 BP 124 / 78; Pulse 96; Resp 16; Temp 98.8(TE); Pulse Ox 99% on R/A; Weight 73.48 kg; ss Height 5 ft. 4 in. (162.56 cm); Pain 10/10; 17:01 Body Mass Index 27.81 (73.48 kg, 162.56 cm) ED Course: 16:43 Patient arrived in ED. am2 17:03 Triage completed. 17:03 Arm band placed on right wrist. 17:15 Lucero Alamo MD is Attending Physician. ma2 17:35 Domi Diaz, EVELINE is Primary Nurse. kg 17:41 Patient has correct armband on for positive identification. Call light in reach. Side kg rails up X 1. Administered Medications: 18:01 Drug: Augmentin (Amoxicillin-Clavulanate) 875 mg Route: PO; kg 18:02 Drug: Ketorolac 60 mg Route: IM; Site: right gluteus; kg Outcome: 17:37 Discharge ordered by . ma2 18:16 Patient left the ED. iw Signatures: Fabiola Sanchez RN RN Colleen Colby RN RN Jeannie Devine 2 Lucero Alamo MD MD [facility] Domi Diaz RN RN kg
--- NOTE | 2020-12-22 16:47 | EDPHYS ---
Physician Documentation [facility] Name: Ann Kaufman Age: 25 yrs Sex: Female : 1995 Arrival Date: 12/20/2020 Time: 16:43 Bed 5 Private MD: ED Physician Lucero Alamo HPI: 12/20 17:35 This 25 yrs old Female presents to ER via Ambulatory with complaints of ma2 Toothache. 17:35 The patient presents with pain, redness. Onset: The symptoms/episode began/occurred ma2 gradually, 2 day(s) ago. Associated signs and symptoms: Pertinent negatives: dysphagia, inability to eat, redness in area, swelling. Severity of symptoms: At their worst the symptoms were moderate, in the emergency department the symptoms are unchanged. The patient has experienced similar episodes in the past. DIRECTOR OF SPECIAL EVENTS: 17:41 LMP 11/21/2020 kg Historical: - Allergies: 17:03 No Known Allergies; ss - Home Meds: 17:03 None [Active]; ss - PMHx: 17:03 Anxiety; ss - PSHx: 17:03 None; ss - Immunization history:: Adult Immunizations up to date. - Social history:: Smoking status: Patient reports the use of cigarette tobacco products, smokes one-half pack cigarettes per day. - Family history:: not pertinent. ROS: 17:35 Constitutional: Negative for fever, chills, and weight loss. ma2 17:35 All other systems are negative. Exam: 17:35 Constitutional: This is a well developed, well nourished patient who is awake, alert, ma2 and in no acute distress. Head/Face: Normocephalic, atraumatic. Eyes: Pupils equal round and reactive to light, extra-ocular motions intact. Lids and lashes normal. Conjunctiva and sclera are non-icteric and not injected. Cornea within normal limits. Periorbital areas with no swelling, redness, or edema. ENT: left upper and lower 2nd molar dentlal infection, otherwise Nares patent. No nasal discharge, no septal abnormalities noted. Tympanic membranes are normal and external auditory canals are clear. Oropharynx with no redness, swelling, or masses, exudates, or evidence of obstruction, uvula midline. Mucous membranes moist. Neck: Trachea midline, no thyromegaly or masses palpated, and no cervical lymphadenopathy. Supple, full range of motion without nuchal rigidity, or vertebral point tenderness. No Meningismus. Chest/axilla: Normal chest wall appearance and motion. Nontender with no deformity. No lesions are appreciated. Cardiovascular: Regular rate and rhythm with a normal S1 and S2. No gallops, murmurs, or rubs. Normal PMI, no JVD. No pulse deficits. Respiratory: Lungs have equal breath sounds bilaterally, clear to auscultation and percussion. No rales, rhonchi or wheezes noted. No increased work of breathing, no retractions or nasal flaring. Abdomen/GI: Soft, non-tender, with normal bowel sounds. No distension or tympany. No guarding or rebound. No evidence of tenderness throughout. Vital Signs: 17:01 BP 124 / 78; Pulse 96; Resp 16; Temp 98.8(TE); Pulse Ox 99% on R/A; Weight 73.48 kg; ss Height 5 ft. 4 in. (162.56 cm); Pain 10/10; 17:01 Body Mass Index 27.81 (73.48 kg, 162.56 cm) ss MDM: 17:15 Patient medically screened. ma2 17:35 Differential diagnosis: dental caries, gingivitis, pericoronitis, gingivostomatitis. ma2 Data reviewed: vital signs, nurses notes. Counseling: I had a detailed discussion with the patient and/or guardian regarding: the historical points, exam findings, and any diagnostic results supporting the discharge/admit diagnosis, the presence of at least one elevated blood pressure reading (>120/80) during this emergency department visit, the need for outpatient follow up. Response to treatment: the patient's symptoms have markedly improved after treatment. Administered Medications: 18:01 Drug: Augmentin (Amoxicillin-Clavulanate) 875 mg Route: PO; kg 18:02 Drug: Ketorolac 60 mg Route: IM; Site: right gluteus; kg Disposition Summary: 12/20/20 17:37 Discharge Ordered Location: Home ma2 Condition: Stable ma2 Diagnosis - Dental caries, unspecified - left upper and lower (12/20/20 17:37) ma2 Followup: ma2 - With: Private Physician - When: Tomorrow - Reason: Continuance of care Discharge Instructions: - Discharge Summary Sheet ma2 - Dental Caries, Adult ma2 Forms: - Medication Reconciliation Form ma2 - Thank You Letter ma2 - Antibiotic Education ma2 - Prescription Opioid Use ma2 Prescriptions: - Augmentin 875-125 mg Oral Tablet - take 1 tablet by ORAL route every 12 hours for 10 days; 20 tablet; Refills: 0, ma2 Product Selection Permitted - Diclofenac Sodium 75 mg Oral Tablet Sustained Release - take 1 tablet by ORAL route 2 times per day; 30 tablet; Refills: 0, Product ma2 Selection Permitted Signatures: Colleen Colby RN RN Lucero Alamo MD MD ma2 Domi Diaz RN RN kg Corrections: (The following items were deleted from the chart) 17:37 17:37 Dental caries, unspecified ma2 ma2
[2020-12-22 21:17] VITALS: BP 124/78; TEMP 98.8; O2SAT 99
== END 2020-12-20 18:16 | disposition home or self-care (01) ==
LOC: ER 16:43
DX: K02.9 Dental caries, unspecified (principal); F17.210 Nicotine dependence, cigarettes, uncomplicated
CPT/HCPCS: 96372; 99282

== ENCOUNTER 2021-03-03 03:42 | Emergency (ER) | payer OTHER ==
[2021-03-03 04:42] LABS: Absolute Lymphocytes (CBC) 1.4 K/uL (0.7-4.9); Basophils % 0.7 % (0-1.3); Hematocrit 37.8 % (36.0-45.0); Lymphocytes % 17.1 % (15.3-44.8); MPV 10.4 fL (7.6-11.3); RBC Red Blood Cell Count 4.18 M/uL (3.86-4.86)
[2021-03-03] MEDS ORDERED: NA CHLORIDE 0.9% 1,000 ML ONE ×2 (05:00→06:28)
[2021-03-03] MEDS ORDERED: ONDANSETRON 4 MG/2 ML VIAL ONE (05:00)
[2021-03-03] MEDS ORDERED: KETOROLAC 30 MG/ML INJ ONE (05:00)
[2021-03-03 05:01] LABS: Albumin 3.8 g/dL (3.4-5.0); Bilirubin Direct 0.1 mg/dL (0-0.2); Bilirubin Total 0.5 mg/dL (0.2-1.0); Potassium 3.4 mmol/L (3.5-5.1); Protein, Total 7.2 g/dL (6.4-8.2)
[2021-03-03] MEDS ORDERED: FAMOTIDINE 20 MG/2 ML VIAL IV ONE (05:01)
[2021-03-03] MEDS ORDERED: MAGNES/ALUMIN/SIMET 30ML UCUP ONE (05:24)
[2021-03-03] MEDS ORDERED: LIDOCAINE VISCOUS 2% SOLN 15 ML UDC ONE (05:24)
[2021-03-03 06:18] LABS: Thyroid Stimulating Hormone 0.725 uIU/mL (0.360-3.740)
[2021-03-03] MEDS ORDERED: PROMETHAZINE INJ 25 MG/ML AMP ONE (06:39)
--- NOTE | 2021-03-03 07:05 | ER ---
Nurse's Notes [facility] Name: Ann Kaufman Age: 25 yrs Sex: Female : 1995 Arrival Date: 03/03/2021 Time: 03:45 Bed 30 Private MD: Diagnosis: Upper abdominal pain, unspecified Presentation: 03/03 03:48 Chief complaint: Patient states: Fall off ladder yesterday at 1400 approx 4 feet high. df1 Landed on ground. Unknown if positive LOC. Also LUQ pain x 3 days with N/ V. Coronavirus screen: Vaccine status: Patient reports being unvaccinated. The client reports previous COVID testing was negative. Date of collection: 2019. Ebola Screen: Patient negative for fever greater than or equal to 101.5 degrees Fahrenheit, and additional compatible Ebola Virus Disease symptoms Patient denies exposure to infectious person. Patient denies travel to an Ebola-affected area in the 21 days before illness onset. Initial Sepsis Screen: Does the patient meet any 2 criteria? No. Patient's initial sepsis screen is negative. Risk Assessment: Do you want to hurt yourself or someone else? Patient reports no desire to harm self or others. 03:48 Method Of Arrival: Ambulatory df1 03:48 Acuity: DARWIN 3 df1 04:17 Initial Sepsis Screen: Does the patient have a suspected source of infection? No. bc5 Patient's initial sepsis screen is negative. Onset of symptoms was March 03, 2021. Triage Assessment: 04:16 General: Appears uncomfortable, Behavior is cooperative, appropriate for age. Pain: bc5 Complains of pain in back and abdomen. GI: Reports nausea. 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 - Social history:: Smoking status: Patient/guardian denies using tobacco, Patient uses street drugs, marijuana. - Family history:: not pertinent. Screenin:15 Abuse screen: Denies threats or abuse. Denies injuries from another. Nutritional bc5 screening: No deficits noted. Tuberculosis screening: No symptoms or risk factors identified. Fall Risk Fall in past 12 months (25 points). No secondary diagnosis (0 pts). IV access (20 points). Ambulatory Aid- None/Bed Rest/Nurse Assist (0 pts). Gait- Normal/Bed Rest/Wheelchair (0 pts) Mental Status- Oriented to own ability (0 pts). Total Birch Fall Scale indicates Low Risk Score (25-44 pts). Fall prevention measures have been instituted. Side Rails Up X 2 Placed close to Nursing Station Frequent Obs/Assesments occuring. Assessment: 04:17 GI: Bowel sounds present X 4 quads. Abd is non tender X 4 quads. bc5 04:43 Reassessment: Pt c/o abdominal pain, N/V, back pain and rib pain. Pt reports falling bc5 off 4 foot ladder while "speckling wall" "I think I passed out which I do sometimes and they don't know why". Pt denies diarrhea, urinary symptoms at this time. A\\T\\O x 3, RR is even and unlabored, speaking in clear and complete sentences at this time. 05:06 Reassessment: Pt pulse dropped down to 38 on monitor, upon entering room Pt was awake bc5 and alert, w/o any complaints, manual pulse confirmed in 40's . EKG obtained, Dr. Alamo aware. 07:35 Reassessment: pt states she is still having pain, MD Valdes informed, [id number] oh oral order given. pt awaiting ride to be discharge. Vital Signs: 03:48 Pulse 64; Resp 20; Temp 98.0; Pulse Ox 100% on R/A; Weight 69.85 kg; Height 5 ft. 4 in. df1 (162.56 cm); Pain 10/10; 03:54 BP 127 / 82; df1 05:54 BP 108 / 70; Pulse 48; Resp 17; Pulse Ox 99% ; Pain 6/10; bc5 07:37 BP 121 / 84; Pulse 62; Resp 17; Pulse Ox 100% on R/A; oh 03:48 Body Mass Index 26.43 (69.85 kg, 162.56 cm) df1 ED Course: 03:45 Patient arrived in ED. bp1 03:52 Triage completed. df1 03:55 Lucero Alamo MD is Attending Physician. ma2 04:05 Peri Gomes, EVELINE is Primary Nurse. bc5 04:16 Arm band placed on right wrist. bc5 04:16 No provider procedures requiring assistance completed. bc5 04:17 Patient has correct armband on for positive identification. Fall risk band placed. bc5 Placed in gown. Bed in low position. Call light in reach. Side rails up X2. 04:42 Inserted saline lock: 20 gauge in right antecubital area, using aseptic technique. bc5 05:32 CT Traumagram (Head C Spine CAP W Con) In Process Unspecified. EDMS 05:57 Basic Metabolic Panel Sent. bc5 05:57 CBC with Diff Sent. bc5 07:04 Donny Price MD is Referral Physician. ma2 07:37 IV discontinued, bleeding controlled, Pressure dressing applied. oh Administered Medications: 04:16 CANCELLED (na): morphine 4 mg IVP once; RASS on ADMIN: Combtv4, Very Agttd3, Agttd2, ma2 Rstlss1, AlertClm0, Drwsy-1, Lt Sdtn-2, Mod Sdtn-3, Dp Sdtn-4, UnArsble-5 04:42 Drug: NS 0.9% 1000 ml Route: IV; Rate: 1 bolus; Site: right antecubital; bc5 05:58 Follow up: IV Status: Completed infusion; IV Intake: 1000ml bc5 04:42 Drug: Ketorolac 30 mg Route: IVP; Site: right antecubital; bc5 05:58 Follow up: Response: Pain is decreased bc5 04:43 Drug: Zofran (Ondansetron) 4 mg Route: IVP; Site: right antecubital; bc5 05:59 Follow up: Response: Nausea is decreased bc5 04:43 Drug: Pepcid (famotidine) 20 mg Route: IVP; Site: right antecubital; bc5 05:58 Follow up: Response: No adverse reaction bc5 05:06 Drug: GI Cocktail without - (Maalox Suspension 30 ml, Lidocaine Liquid 2 % 15 bc5 ml) Route: PO; 05:58 Follow up: Response: No adverse reaction bc5 06:09 Drug: NS 0.9% 1000 ml Route: IV; Rate: 1 bolus; Site: right antecubital; bc5 06:15 Drug: Phenergan (promethazine) 25 mg Route: IVP; Site: right antecubital; bc5 07:39 Follow up: Response: No adverse reaction oh 07:35 Drug: [place] (HYDROcodone-acetaminophen) 10 mg-325 mg 1 tabs Route: PO; oh Intake: 05:58 IV: 1000ml; Total: 1000ml. 5 Outcome: 07:04 Discharge ordered by . alfred 07:37 Discharged to home ambulatory. oh 07:37 Condition: stable 07:37 Discharge instructions given to patient. 08:02 Patient left the ED. oh Signatures: Dispatcher [employer] EDMS Lucero Alamo MD MD ma2 Teresa Enrique Bella RN RN bc5 June Adams df1 Kelly Watters RN RN 1 Sirisha Knight RN RN oh Corrections: (The following items were deleted from the chart) 03:54 03:53 PSHx: None; df1 df1
--- NOTE | 2021-03-03 07:05 | EDPHYS ---
Physician Documentation [facility] Name: Ann Kafuman Age: 25 yrs Sex: Female : 1995 Arrival Date: 03/03/2021 Time: 03:45 Bed 30 Private MD: ED Physician Lucero Alamo HPI: 03/03 04:17 This 25 yrs old Female presents to ER via Ambulatory with complaints of ma2 Abdominal Pain, Back Pain, Vomiting, Breathing Difficulty. 04:17 This 25 yrs old Female presents to ER via Ambulatory with complaints of ma2 Abdominal Pain, . 04:17 The patient presents with pain that is acute. Onset: The symptoms/episode ma2 began/occurred gradually, 1 day(s) ago. Associated signs and symptoms: Pertinent negatives: dysuria, headache, incontinence, numbness. Severity of symptoms: At their worst the symptoms were moderate, in the emergency department the symptoms are unchanged. The patient has experienced similar episodes in the past. [place]: 03:57 LMP 02/25/2021 1 Historical: - Allergies: 03:53 No Known Allergies; df1 - Home Meds: 03:53 None [Active]; df1 - PMHx: 03:53 Anxiety; df1 - PSHx: 03:53 tubal ligation; df1 - Immunization history:: Adult Immunizations up to date, Client reports having NOT received the Covid vaccine. - Social history:: Smoking status: Patient/guardian denies using tobacco, Patient uses street drugs, marijuana. - Family history:: not pertinent. ROS: 04:17 Constitutional: Negative for fever, chills, and weight loss. ma2 04:17 All other systems are negative. Exam: 04:17 Constitutional: This is a well developed, well nourished patient who is awake, alert, ma2 and in no acute distress. Eyes: Pupils equal round and reactive to light, extra-ocular motions intact. Lids and lashes normal. Conjunctiva and sclera are non-icteric and not injected. Cornea within normal limits. Periorbital areas with no swelling, redness, or edema. ENT: Nares patent. No nasal discharge, no septal abnormalities noted. Tympanic membranes are normal and external auditory canals are clear. Oropharynx with no redness, swelling, or masses, exudates, or evidence of obstruction, uvula midline. Mucous membranes moist. Neck: Trachea midline, no thyromegaly or masses palpated, and no cervical lymphadenopathy. Supple, full range of motion without nuchal rigidity, or vertebral point tenderness. No Meningismus. Chest/axilla: Normal chest wall appearance and motion. Nontender with no deformity. No lesions are appreciated. Cardiovascular: Regular rate and rhythm with a normal S1 and S2. No gallops, murmurs, or rubs. Normal PMI, no JVD. No pulse deficits. Respiratory: Lungs have equal breath sounds bilaterally, clear to auscultation and percussion. No rales, rhonchi or wheezes noted. No increased work of breathing, no retractions or nasal flaring. Back: No spinal tenderness. No costovertebral tenderness. Full range of motion. Skin: Warm, dry with normal turgor. Normal color with no rashes, no lesions, and no evidence of cellulitis. MS/ Extremity: Pulses equal, no cyanosis. Neurovascular intact. Full, normal range of motion. Neuro: Awake and alert, GCS 15, oriented to person, place, time, and situation. Cranial nerves II-XII grossly intact. Motor strength 5/5 in all extremities. Sensory grossly intact. Cerebellar exam normal. Normal gait. 04:17 Abdomen/GI: Inspection: abdomen appears normal, Bowel sounds: normal, Palpation: moderate abdominal tenderness, in the epigastric area, mass, is not appreciated, rebound tenderness, is not appreciated, no appreciated organomegaly. Vital Signs: 03:48 Pulse 64; Resp 20; Temp 98.0; Pulse Ox 100% on R/A; Weight 69.85 kg; Height 5 ft. 4 in. df1 (162.56 cm); Pain 10/10; 03:54 BP 127 / 82; df1 05:54 BP 108 / 70; Pulse 48; Resp 17; Pulse Ox 99% ; Pain 6/10; bc5 07:37 BP 121 / 84; Pulse 62; Resp 17; Pulse Ox 100% on R/A; oh 03:48 Body Mass Index 26.43 (69.85 kg, 162.56 cm) df1 MDM: 03:55 Patient medically screened. ma2 04:17 Differential diagnosis: Fatigue Osteomyelitis Pyelonephritis sprain, ma2 vertebral fracture. 07:02 Data reviewed: vital signs, nurses notes. Counseling: I had a detailed discussion with [facility] the patient and/or guardian regarding: the historical points, exam findings, and any diagnostic results supporting the discharge/admit diagnosis, the presence of at least one elevated blood pressure reading (>120/80) during this emergency department visit, the need for outpatient follow up. Response to treatment: the patient's symptoms have markedly improved after treatment. 03/03 04:16 Order name: Basic Metabolic Panel [facility] 03/03 04:16 Order name: CBC with Diff mn2 03/03 04:16 Order name: Hepatic Function; Complete Time: 06:35 mn2 03/03 04:16 Order name: Lipase; Complete Time: 06:35 mn2 03/03 04:16 Order name: Type And Screen; Complete Time: 06:11 mn2 03/03 04:16 Order name: Basic Metabolic Panel; Complete Time: 06:35 EDMS 03/03 04:16 Order name: CT Traumagram (Head C Spine CAP W Con) [facility] 03/03 04:16 Order name: CBC with Automated Diff; Complete Time: 05:07 EDMS 03/03 05:44 Order name: T4 Free; Complete Time: 06:35 EDMS 03/03 05:44 Order name: Thyroid Stimulating Hormone; Complete Time: 06:35 EDMS 03/03 06:12 Order name: Test, Serum; Complete Time: 07:05 mn2 03/03 06:55 Order name: CREATININE WHOLE BLOOD; Complete Time: 07:05 EDMS 03/03 04:16 Order name: IV Saline Lock; Complete Time: 04:43 mn2 03/03 04:16 Order name: Labs collected and sent; Complete Time: 04:43 mn2 03/03 04:16 Order name: Urine Dipstick-Ancillary (obtain specimen) mn2 03/03 04:16 Order name: Urine Test (obtain specimen) [facility] Administered Medications: 04:16 CANCELLED (na): morphine 4 mg IVP once; RASS on ADMIN: Combtv4, Very Agttd3, Agttd2, ma2 Rstlss1, AlertClm0, Drwsy-1, Lt Sdtn-2, Mod Sdtn-3, Dp Sdtn-4, UnArsble-5 04:42 Drug: NS 0.9% 1000 ml Route: IV; Rate: 1 bolus; Site: right antecubital; bc5 05:58 Follow up: IV Status: Completed infusion; IV Intake: 1000ml bc5 04:42 Drug: Ketorolac 30 mg Route: IVP; Site: right antecubital; bc5 05:58 Follow up: Response: Pain is decreased bc5 04:43 Drug: Zofran (Ondansetron) 4 mg Route: IVP; Site: right antecubital; bc5 05:59 Follow up: Response: Nausea is decreased bc5 04:43 Drug: Pepcid (famotidine) 20 mg Route: IVP; Site: right antecubital; bc5 05:58 Follow up: Response: No adverse reaction bc5 05:06 Drug: GI Cocktail without - (Maalox Suspension 30 ml, Lidocaine Liquid 2 % 15 bc5 ml) Route: PO; 05:58 Follow up: Response: No adverse reaction bc5 06:09 Drug: NS 0.9% 1000 ml Route: IV; Rate: 1 bolus; Site: right antecubital; bc5 06:15 Drug: Phenergan (promethazine) 25 mg Route: IVP; Site: right antecubital; bc5 07:39 Follow up: Response: No adverse reaction oh 07:35 Drug: [place] (HYDROcodone-acetaminophen) 10 mg-325 mg 1 tabs Route: PO; oh Disposition Summary: 03/03/21 07:04 Discharge Ordered Location: Home ma2 Condition: Stable ma2 Diagnosis - Upper abdominal pain, unspecified ma2 Followup: ma2 - With: Private Physician - When: Tomorrow - Reason: Continuance of care Followup: ma2 - With: Donny Price MD - When: Tomorrow - Reason: Continuance of care Discharge Instructions: - Discharge Summary Sheet ma2 - Abdominal Pain, Adult ma2 Forms: - Medication Reconciliation Form ma2 - Thank You Letter ma2 - Antibiotic Education ma2 - Prescription Opioid Use ma2 Prescriptions: - Zofran 4 mg Oral Tablet - take 1 tablet by ORAL route every 12 hours As needed; 20 tablet; Refills: 0, ma2 Product Selection Permitted - Pepcid 20 mg Oral Tablet - take 1 tablet by ORAL route once daily; 20 tablet; Refills: 0, Product ma2 Selection Permitted - Diclofenac Sodium 75 mg Oral Tablet Sustained Release - take 1 tablet by ORAL route 2 times per day; 30 tablet; Refills: 0, Product ma2 Selection Permitted Signatures: Dispatcher [employer] EDMS Lucero Alamo MD MD ma2 Peri Gomes RN RN [id number] June Adams df1 Sirisha Knight RN RN oh Corrections: (The following items were deleted from the chart) 03:54 03:53 PSHx: None; df1 df1 04:16 04:16 morphine 4 mg IVP once; RASS on ADMIN: Combtv4, Very Agttd3, Agttd2, Rstlss1, ma2 AlertClm0, Drwsy-1, Lt Sdtn-2, Mod Sdtn-3, Dp Sdtn-4, UnArsble-5 ordered. ma2 05:44 05:42 THYROID STIMULAT HORMONE+C.LAB.BRZ ordered. EDMS EDMS 05:44 05:42 T4 FREE+C.LAB.BRZ ordered. EDMS EDMS
[2021-03-03] MEDS ORDERED: HYDROCODONE/APAP 10/325 TAB ONE (07:58)
[2021-03-03 08:10] VITALS: TEMP 98
[2021-03-03 08:14] VITALS: BP 121/84; O2SAT 100
--- NOTE | 2021-03-03 11:48 | RAD REPORT ---
EXAM DESCRIPTION: CT - Head C Spine Renaldo Yusuf - 03/03/2021 6:41 am CLINICAL HISTORY: PAIN COMPARISON: None available TECHNIQUE: Axial CT of the head obtained from the skull apex to the skull base without contrast. Axi al CT images of the cervical spine obtained from the skull base through the thoracic inlet. Sagittal and coronal reformatted images available. CT of the chest, abdomen, and pelvis obtained following the intravenous administration of iodinated contrast. This exam was performed according to our [facility] dose-optimization program, which includes automated exposure control, adjustment of the mA and/or kV according to patient size and/or use of iterative reconstruction technique. FINDINGS: CT head: No acute intracranial hemorrhage identified. No mass, mass effect, shift of the midline, abnormal ext ra-axial fluid collection or CT evidence of acute ischemic change identified. The ventricular system is unremarkable. No acute abnormalities of the supratentorial white matter, basal ganglia, cerebell um, or brainstem. The visualized paranasal sinuses and the mastoids are clear. No skull fracture identified. Visualized orbits and globes are unremarkable. Cervical CT: Straightening of the cervical lordosis may be secondary to patient positioning. The atlantoaxial, a tlantodental, and occipitoatlantal intervals are preserved. No fracture identified. Vertebral body height preserved. Prevertebral soft tissues are unremarkable. Intervertebral disc height preserved. Visualized skull base is intact. No fracture of the visualized facial bones. Visualized mastoid air c ells and paranasal sinuses are well aerated. Visualized thyroid is unremarkable. No cervical lymphadenopathy. No pneumothorax in the visualized lung apices. Chest: Thyroid: No abnormalities of the visualized thyroid. Great Vessels: Great vessels have normal anatomic configuration. Thoracic Aorta: No abnormalities of the thoracic aorta identified. Pulmonary arteries: No filling defects identified. Heart: No cardiomegaly, significant pericardial effusion, or coronary artery atherosclerosis Lymph Nodes: No enlarged mediastinal lymph nodes identified. Esophagus: No abnormalities of the esophagus identified Other: No additional findings. Lungs: No airspace opacities identified. Pleura: No pleural effusion or pneumothorax. Trachea/Airways: No abnormalities of the visualized trachea or airways. Abdomen: Liver: The liver has normal size and density. No intrahepatic mass or biliary dilatation. Gallbladder: No calcified gallstones. Spleen, Pancreas, and Adrenal Glands: The spleen, pancreas, and adrenal glands are unremarkable. Kidneys: The kidneys have normal size and contour without evidence of solid mass or hydronephrosis. Vasculature: The aorta and IVC have normal caliber and position. The portal vein is patent. The pro ximal visceral and renal arteries are patent. Stomach: The stomach and duodenum have normal course. Other: No free intraperitoneal air. No free fluid or lymphadenopathy. Pelvis: Bladder: Urinary bladder is unremarkable. Bowel: No dilated loops of large or small bowel. Appendix: Normal appendix. Pelvis: Uterus is not enlarged. Bones: No acute fractures identified. IMPRESSION: 1. No acute intracranial abnormality. 2. No acute fracture or subluxation of the cervical spine. 3. No acute traumatic, inflammatory, or obstructive process identified in the chest, abdomen, or pe lvis. Electronically signed by: Shakeel Grant 03/03/2021 6:01 AM CDT Due to temporary technical issues with the PACS/Fluency reporting system, reports are being signed by the in house radiologist without review as a courtesy to ensure prompt reporting. The interpreting r adiologist is fully responsible for the content of the report.
== END 2021-03-03 08:02 | disposition home or self-care (01) ==
LOC: ER 03:42
DX: R10.10 Upper abdominal pain, unspecified (principal)
CPT/HCPCS: 96361; 93005; 85025; 80048; 36415; 86900; 86850; 84703; 82565; 86901; 80076; 84443; 84439; 83690; 70450; 72125; 71260; 74177; 96375; 96374; 99284; Q9967; J2550; J7030 ×2; J2405

== ENCOUNTER 2022-08-01 19:14 | Emergency (ER) | payer OTHER ==
--- OUTSIDE RECORDS SUMMARY | 2022-08-01 19:20 | XMS REPORT | Clinical Summary ---
:1995 Author Organization [facility] Address [address] [place] [address] Care Team Providers Name Role Phone Lance Cortes MD Unavailable Gael Son MD Primary Care Provider Allergies Active Allergy Reactions Severity Noted Date Comments Latex Rash Low 11/26/2013 Medications Medication Sig Dispensed Refills Start Date End Date Status senna-docusate Take 2 30 tablet 0 04/08/2022 Acti ve (SENOKOT-S) 8.6 tablets by mg-50 mg mouth 2 (two) tabletIndications: times a day Benign neoplasm of as needed for cerebral meninges constipation. traMADol (ULTRAM) Take 1 tablet 0 Active 50 mg tablet (50 mg) by mouth 2 (two) times a day as needed. HYDROcodone-acetam Take 1 tablet 60 tablet 0 04/19/2022 Active inophen (NORCO) 5 by mouth mg-325 mg per every 8 tabletIndications: (eight) hours Benign neoplasm of as needed for cerebral meninges moderate pain or severe pain. HYDROcodone-acetam Take 1 tablet 30 tablet 0 05/04/2022 Active inophen (NORCO) 5 by mouth as mg-325 mg per needed for tabletIndications: severe pain. Benign neoplasm of cerebral meninges, Cancer associated pain, Other chronic postoperative pain lacosamide Take 2 120 tablet 0 05/04/2022 Active (VIMPAT) 50 mg tablets (100 tabletIndications: mg) by mouth Benign neoplasm of every 12 cerebral meninges (twelve) hours. valACYclovir Take 1,000 mg 0 09/21/2021 Di scontinued (VALTREX) 1000 mg by mouth 3 2 ( Not Applicable) tablet (three) times a day. dexamethasone Take 1 tablet 30 tablet 0 10/02/2021 D iscontinued (DECADRON) 2 mg (2mg) by 2 (Not Applicable) tabletIndications: mouth twice a Meningioma, not day otherwise specified pantoprazole Take 1 tablet 30 tablet 0 10/02/2021 Di scontinued (Protonix) 40 mg (40 mg) by 2 (N ot Applicable) EC mouth every tabletIndications: morning Meningioma, not before otherwise breakfast. specified levETIRAcetam Take 1 tablet 30 tablet 0 12/22/2021 D iscontinued (Keppra) 500 mg (500 mg) by 2 tabletIndications: mouth twice Benign neoplasm of daily. cerebral meninges acetaminophen-code Take 1 tablet 25 tablet 0 12/22/2021 Discontinued ine (TYLENOL #3) by mouth 2 (St op Taking at 300 mg-30 mg every 4 Dischar ge) tabletIndications: (four) hours Benign neoplasm of as needed for cerebral meninges moderate pain. levETIRAcetam TAKE 1 TABLET 30 tablet 0 01/11/2022 D iscontinued (KEPPRA) 500 mg BY MOUTH 2 (The rapy tabletIndications: TWICE A DAY completed) Benign neoplasm of cerebral meninges acyclovir TAKE 1 TABLET 0 09/09/2021 Disco ntinued (ZOVIRAX) 400 mg BY MOUTH 2 (No t Applicable) tablet THREE TIMES DAILY FOR 7 DAYS ProAir HFA 90 TAKE 2 PUFFS 0 10/31/2021 Di scontinued mcg/actuation BY MOUTH 2 (Not A pplicable) inhaler EVERY 6 HOURS NEEDED benzonatate TAKE 2 0 11/01/2021 Discont inued (TESSALON) 100 mg CAPSULES BY 2 (Not Applicable) capsule MOUTH EVERY 8 (EIGHT) HOURS NEEDED FOR COUGH. butalbital-acetami TAKE 1 TABLET 0 09/13/2021 Discontinued nophen-caffeine BY MOUTH 2 (Not Applicable) (FIORICET, ESGIC) EVERY 4 50 mg-325 mg-40 mg (FOUR) HOURS tablet NEEDED (HEADACHE). valACYclovir 0 12/27/2021 Discon tinued (VALTREX) 1000 mg 2 (N ot Applicable) tablet levETIRAcetam Take 1 tablet 90 tablet 0 03/14/2022 D iscontinued 1,000 mg (1000 mg) by 2 (Stop T aking at [id number]: mouth in the Discharge) Benign neoplasm of morning. cerebral meninges traMADol (Ultram) Take 1 tablet 60 tablet 2 03/18/2022 02 Discontinued 50 mg (50 mg) by 2 (Stop Clarke ing at tabletIndications: mouth 2 (two) Discharge) Benign neoplasm of times a day cerebral meninges, as needed for Chronic pain severe pain. syndrome HYDROcodone-acetam Take 1 tablet 28 tablet 0 04/08/2022 Discontinued inophen (NORCO) 5 by mouth 2 (R eorder) mg-325 mg per every 6 (six) tabletIndications: hours as Benign neoplasm of needed for cerebral meninges moderate pain or severe pain. lacosamide Take 2 120 tablet 0 04/08/2022 Discont inued (VIMPAT) 50 mg tablets (100 2 (R eorder) tabletIndications: mg) by mouth Benign neoplasm of every 12 cerebral meninges (twelve) hours. amoxicillin-clavul Take 1 tablet 20 tablet 0 04/15/2022 anate (Augmentin) (875 mg) by 2 875 mg-125 mg per mouth twice tabletIndications: daily for 10 Benign neoplasm of days. cerebral meninges Active Problems Problem Noted Date Headache 04/19/2022 Blurring of visual image 04/05/2022 Meningioma 08/03/2021 H/O: manic depressive disorder 10/19/2018 Encounters Date Type Specialty Care Team Description 05/24/2022 Orders Only Pain Medicine Terry, Shibili, Headache, n ot HOME CARE SCHEDULER otherwise speci fied (Primary Dx) 05/19/2022 Telephone Neuro-Oncology Krystin Barnes RN 05/04/2022 Hospital Encounter Pain Medicine Callie Watkins MD Cance r associated pain (Primary Dx); Benign neoplasm of cerebral meninges; Other chronic p ostoperative pain 05/04/2022 Documentation Neuro-Oncology Lizzie Manzano, HOME CARE SCHEDULER 05/04/2022 Orders Only Neuro-Oncology Lizzie Manzano, Benign maycol plasm of HOME CARE SCHEDULER cerebral mening es 05/03/2022 Orders Only Neuro-Oncology Alvarado Jazzy R, HOME CARE SCHEDULER 04/19/2022 Hospital Encounter Pain Medicine Callie Watkins MD Heada kesha, not otherwise specified (Primary Dx); Benign neoplasm of cerebral meninges 04/19/2022 Office Visit Neurosurgery Thomas Santos MD Benign neopl asm of cerebral mening es 04/19/2022 Documentation Supportive Care Karol Savage, RN 04/19/2022 Travel 04/15/2022 Telephone Neurosurgery Ge Kahn HOME CARE SCHEDULER 04/15/2022 Orders Only Neurosurgery Ge Kahn, Benign neopl asm of HOME CARE SCHEDULER cerebral mening es (Primary Dx) 04/12/2022 Nurse Triage Kalina Renee, RN 04/08/2022 Orders Only Neurosurgery Bettye Medellin Benign neoplas m of R, HOME CARE SCHEDULER cerebral mening es (Primary Dx) 04/06/2022 Anesthesia Event Rony Quevedo III, MD Zhang, Wei H., LACE PAPER MACHINE OPERATOR 04/06/2022 Surgery Thomas Santos MD RIGHT MODIFI ED ORBITOZYGOMATIC APPROACH TO SKU LL BASE 04/06/2022 Ancillary Procedure Thomas Santos MD 04/06/2022 Hospital Encounter Neuro/Rehab Thomas Santos MD Benign neoplasm of - cerebral mening es 04/08/2022 04/06/2022 Travel 04/05/2022 Anesthesia Event Anesthesiology Dayne Bailey PA 04/05/2022 POEM Appointments Anesthesiology Gael Son, Benign neoplasm of cerebral meninges; Pre-surgery bindu moore 04/05/2022 Office Visit Neurosurgery Thomas Santos MD Benign neopl asm of cerebral mening es 04/05/2022 Documentation Neuro-Oncology Per Burgos 04/05/2022 Orders Only Neurosurgery Ge Kahn, Benign neopl asm of HOME CARE SCHEDULER cerebral mening es (Primary Dx) 04/05/2022 Travel 04/04/2022 Ancillary Procedure Radiology Gael Son, Benign neoplasm of MD cerebral mening es 04/04/2022 Hospital Encounter Radiology Gael Son, Benign neoplasm of MD cerebral mening es 04/04/2022 Hospital Encounter Ophthalmology Corey-Haven, Blurring of visual image (Primary Dx); MD Nancy Benign neoplasm of cerebral meninges; Exomphalos; 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 04/04/2022 Ancillary Procedure Radiology Gael Son, Benign neoplasm of MD cerebral mening es 04/04/2022 Clinical Support Covid Gael Son, Suspected COVID-19 (Primary Dx); Benign neoplasm of cerebral meninges Kiki Bray RN 04/04/2022 Hospital Encounter Lab Gael Son, Benign neoplasm of MD cerebral mening es 04/04/2022 Travel 03/17/2022 Hospital Encounter Pain Medicine Callie Watkins MD H/O: manic depressive disorder (Primary Dx); Benign neoplasm of cerebral meninges; Chronic pain sy ndrome 03/17/2022 Travel 03/14/2022 Consult Neuro-Oncology Chantal Sosa Benign neopl asm of MD Chhaya cerebral mening es (Primary Dx) 03/14/2022 Travel 02/21/2022 Telephone Neuro-Oncology Jenni Zacarias RN 01/11/2022 Orders Only Neurosurgery Ge Kahna, HOME CARE SCHEDULER 01/07/2022 Telephone Neuro-Oncology Jenni Zacarias Medication R yolanda Cr RN 01/04/2022 Orders Only Radiology Agnes Thompson MD 01/04/2022 Orders Only Neurosurgery Ge Kahna, Benign neopl asm of HOME CARE SCHEDULER cerebral mening es (Primary Dx) 01/04/2022 Prep for Surgery Neurosurgery Ge Kahna, Benign n eoplasm of HOME CARE SCHEDULER cerebral mening es (Primary Dx) 01/04/2022 Orders Only Neurosurgery Soy Son Krystin, Benign neopl asm of HOME CARE SCHEDULER cerebral mening es (Primary Dx) 12/29/2021 Refill Neurosurgery Ge Kahn Krystin, Benign neopl asm of HOME CARE SCHEDULER cerebral mening es 12/24/2021 Telemedicine Neurosurgery Thomas Santos MD Benign neopl asm of cerebral mening es 12/24/2021 Orders Only Neurosurgery Soy Son Krystin, Benign neopl asm of HOME CARE SCHEDULER cerebral mening es (Primary Dx) 12/22/2021 Orders Only Neurosurgery Femi Son Krystin, Benign neopl asm of HOME CARE SCHEDULER cerebral mening es (Primary Dx) 12/14/2021 Orders Only Neurosurgery Ge Kahn, HOME CARE SCHEDULER 12/09/2021 Consult Neurosurgery Thomas Santos MD Benign neopl asm of cerebral mening es 12/09/2021 Orders Only Neurosurgery Ge Kahn, Benign neopl asm of HOME CARE SCHEDULER cerebral mening es (Primary Dx) 12/09/2021 Travel 11/26/2021 Hospital Encounter Radiation Oncology Gael Son M eningioma, not MD otherwise speci fied 11/26/2021 Ancillary Procedure Radiology Vidal Vigil, Mening ioma, not AIRPORT OPERATIONS OFFICER otherwise speci fied 11/26/2021 Orders Only Radiation Oncology Michael, Cheryl Benign neoplasm of Castaneda, AIRPORT OPERATIONS OFFICER cerebral mening es (Primary Dx) 11/26/2021 Documentation Radiation Oncology Jayjay Rodriguezisha Castaneda, AIRPORT OPERATIONS OFFICER 11/26/2021 Travel 10/02/2021 Orders Only Radiation Oncology Musa Carlosremberto, Meningi khang, not AIRPORT OPERATIONS OFFICER otherwise speci fied (Primary Dx) 10/02/2021 Orders Only Radiation Oncology Musa Carlosremberto, Meningi khang, not AIRPORT OPERATIONS OFFICER otherwise speci fied (Primary Dx) 09/24/2021 Hospital Encounter Radiation Oncology Gael Son B enign neoplasm of cerebral mening es (Primary Dx) 09/24/2021 Documentation Radiation Oncology Vidal Vigil, AIRPORT OPERATIONS OFFICER 09/24/2021 Orders Only Radiation Oncology Musa Vidal, Meningi khang, not AIRPORT OPERATIONS OFFICER otherwise speci fied (Primary Dx) 09/24/2021 Travel 09/23/2021 Travel 09/16/2021 Ancillary Procedure Radiology Cancer 09/16/2021 Ancillary Procedure Radiology Cancer 09/16/2021 Ancillary Procedure Radiology Cancer 09/16/2021 Ancillary Procedure Radiology Cancer 09/16/2021 Ancillary Procedure Radiology Cancer 09/16/2021 Ancillary Procedure Radiology Cancer 09/16/2021 Ancillary Procedure Radiology Cancer 09/15/2021 Lab Requisition Alan Layne MD Felicella, Michelle, MD after 08/01/2021 Immunizations Name Administration Dates Next Due Rubella 04/17/2008 Td, Unspecified 05/29/2007 Tdap 04/19/2019 Surgical History Surgery Date Site/Laterality Comments CRANIOTOMY 08/03/2021 Right Tumor resection TUBAL LIGATION 06/15/2019 NE ORBITOCRNL APPR MID 04/06/2022 Head/Right Procedure : RIGHT MODIFIED CRANIAL FOSSA TEMPORAL LOBE ORBI TOZYGOMATIC APPROACH TO SKULL BASE; Surg cristina: Thomas Santos MD; Locati on: MAIN OR; Service: NEUROSU RGERY Medical devices from this surgery are in t he Medical Devices section. NE RESCJ/EXC LES BASE ANT 04/06/2022 Head/Right Proced ure: RESECTION OF SKULL CRANIAL FOSSA EXTRADURAL BASE TU MOR; Surgeon: Thomas Santos MD; Locati on: MAIN OR; Service: NEUROSU RGERY Medical devices from this surgery are in t he Medical Devices section. Medical History Medical History Date Comments Anemia Seizure Family History Medical History Relation Name Comments Amblyopia Neg Hx Glaucoma Neg Hx Macular degeneration Neg Hx Retinal detachment Neg Hx Strabismus Neg Hx Social History Tobacco Use Types Packs/Day Years Used Date Smoking Tobacco: Every Day Cigarettes 0.5 Smokeless Tobacco: Never Tobacco Cessation: Ready to Quit: Not As ked; Counseling Given: Not Answered Alcohol Use Standard Drinks/Week Comments Not Currently 0 (1 standard drink = 0.6 oz pure alcoho l) Sex Assigned at Date Recorded Not on file Job Start Date Occupation Industry Not on file Not on file Not on file Obstetrics History Last Filed Vital Signs Vital Sign Reading Time Taken Comments Blood Pressure 124/89 04/19/2022 10:07 AM REVENUE INTEGRITY ANALYST Pulse 87 04/19/2022 10:07 AM REVENUE INTEGRITY ANALYST Temperature 36.1 C (97 F) 04/19/2022 10:07 AM REVENUE INTEGRITY ANALYST Respiratory Rate 16 04/19/2022 10:07 AM REVENUE INTEGRITY ANALYST Oxygen Saturation 100% 04/19/2022 10:07 AM REVENUE INTEGRITY ANALYST Inhaled Oxygen - - Concentration Weight 70.1 kg (154 lb 8.7 04/19/2022 10:05 oz) AM REVENUE INTEGRITY ANALYST Height 160 cm (5' 2.99") 04/06/2022 9:15 PM previous en counter. REVENUE INTEGRITY ANALYST ATILIO at present. NPCU Body Mass Index 27.38 04/06/2022 9:15 PM REVENUE INTEGRITY ANALYST Plan of Treatment Date Type Specialty Care Team Description 08/26/2022 Ancillary Procedure Radiology Kaz Son MD [address] [place] [address] (Wo rk) 08/26/2022 Office Visit Neurosurgery Thomas Santos MD [address] [place], [place] [address] (Wo rk) 09/12/2022 Appointment Ophthalmology Rashmi Karimi MD [address] [place], [place] [address] (Wo rk) 09/12/2022 Office Visit Neuro-Oncology Chantal Sosa MD [address] [place], [place] [address] (Wo rk) Health Maintenance Due Date Last Done Comments COVID-19 Vaccination (#1) 02/02/1994 Medical Devices Implanted Type Area Shingle Sawyer Device Shelf Model / Serial / Identifier Expiration Lot Date Ti Matrixneuro Contour Mesh 10 0mm Deepti/0.6mm Rigid - [id number] Implant Cranial [facility] 04/06/2022 [id number] / Implanted: Qty: 1 on 04/06/2022 by Thomas Santos MD at [facility]IN [facility] / Tisseel 10ml - [id number] Skin/Tiss Cranial MENENDEZ 04/07/2022 [id number] / Implanted: Qty: 1 on 04/06/2022 by Thomas Santos MD at [facility]IN [facility] ING ue BIOSCIENCE [id number] / [id number] Procedures Procedure Name Priority Date/Time Associated Comments Diagnosis MANUAL DIFFERENTIAL Routine 04/08/2022 6:29 AM Re sults for this REVENUE INTEGRITY ANALYST procedure are i n the results section. Results CBC Routine 04/08/2022 6:29 AM Results f or this REVENUE INTEGRITY ANALYST procedure are i n the results section. CALCIUM LEVEL TOTAL Routine 04/08/2022 6:29 AM Re sults for this REVENUE INTEGRITY ANALYST procedure are i n the results section. .GLOMERULAR FILTRATION Routine 04/08/2022 6:29 AM Results for this RATE REVENUE INTEGRITY ANALYST procedure are i n the results section. SERUM CREATININE Routine 04/08/2022 6:29 AM Resul ts for this REVENUE INTEGRITY ANALYST procedure are i n the results section. ELECTROLYTE PANEL Routine 04/08/2022 6:29 AM Resu lts for this REVENUE INTEGRITY ANALYST procedure are i n the results section. BLOOD UREA NITROGEN Routine 04/08/2022 6:29 AM Re sults for this REVENUE INTEGRITY ANALYST procedure are i n the results section. GLUCOSE LEVEL Routine 04/08/2022 6:29 AM Results for this REVENUE INTEGRITY ANALYST procedure are i n the results section. COMPLETE BLOOD COUNT W/ Routine 04/08/2022 6:29 AM DIFFERENTIAL REVENUE INTEGRITY ANALYST PHOSPHORUS LEVEL Routine 04/08/2022 6:29 AM Resul ts for this REVENUE INTEGRITY ANALYST procedure are i n the results section. MAGNESIUM LEVEL Routine 04/08/2022 6:29 AM Result s for this REVENUE INTEGRITY ANALYST procedure are i n the results section. BASIC METABOLIC PANEL, Routine 04/08/2022 6:29 AM CALCIUM TOTAL REVENUE INTEGRITY ANALYST POC GLUCOSE SCREEN Routine 04/07/2022 6:39 PM Res ults for this REVENUE INTEGRITY ANALYST procedure are i n the results section. POC GLUCOSE SCREEN Routine 04/07/2022 11:52 Resul ts for this AM REVENUE INTEGRITY ANALYST procedure are i n the results section. MANUAL DIFFERENTIAL Routine 04/07/2022 1:34 AM Re sults for this REVENUE INTEGRITY ANALYST procedure are i n the results section. Results CBC Routine 04/07/2022 1:34 AM Results f or this REVENUE INTEGRITY ANALYST procedure are i n the results section. CALCIUM LEVEL TOTAL Routine 04/07/2022 1:34 AM Re sults for this REVENUE INTEGRITY ANALYST procedure are i n the results section. .GLOMERULAR FILTRATION Routine 04/07/2022 1:34 AM Results for this RATE REVENUE INTEGRITY ANALYST procedure are i n the results section. SERUM CREATININE Routine 04/07/2022 1:34 AM Resul ts for this REVENUE INTEGRITY ANALYST procedure are i n the results section. ELECTROLYTE PANEL Routine 04/07/2022 1:34 AM Resu lts for this REVENUE INTEGRITY ANALYST procedure are i n the results section. BLOOD UREA NITROGEN Routine 04/07/2022 1:34 AM Re sults for this REVENUE INTEGRITY ANALYST procedure are i n the results section. GLUCOSE LEVEL Routine 04/07/2022 1:34 AM Results for this REVENUE INTEGRITY ANALYST procedure are i n the results section. COMPLETE BLOOD COUNT W/ Routine 04/07/2022 1:34 AM DIFFERENTIAL REVENUE INTEGRITY ANALYST PHOSPHORUS LEVEL Routine 04/07/2022 1:34 AM Resul ts for this REVENUE INTEGRITY ANALYST procedure are i n the results section. MAGNESIUM LEVEL Routine 04/07/2022 1:34 AM Result s for this REVENUE INTEGRITY ANALYST procedure are i n the results section. BASIC METABOLIC PANEL, Routine 04/07/2022 1:34 AM CALCIUM TOTAL REVENUE INTEGRITY ANALYST CT HEAD WO CONTRAST Routine 04/07/2022 12:52 Resu lts for this AM REVENUE INTEGRITY ANALYST procedure are i n the results section. POC GLUCOSE SCREEN Routine 04/06/2022 11:08 Resul ts for this PM REVENUE INTEGRITY ANALYST procedure are i n the results section. PATHOLOGY SURGICAL Routine 04/06/2022 2:40 PM Benign neoplasm of Results for this INTERPRETATION REVENUE INTEGRITY ANALYST cerebral meninges procedur e are in the results section. RESECTION OR EXCISION 04/06/2022 12:07 Benign neoplasm of OF NEOPLASTIC, VASCULAR PM REVENUE INTEGRITY ANALYST cerebral meninges OR INFECTIOUS LESION OF BASE OF ANTERIOR CRANIAL FOSSA; EXTRADURAL Special Needs [id number] Research blood for pr otocol [id number] (Catalyst/Proactive): ORBITOCRANIAL ZYGOMATIC 04/06/2022 12:07 PM REVENUE INTEGRITY ANALYST Benign neoplasm of APPROACH TO MIDDLE CRANIAL cerebral menin ges FOSSA Special Needs [id number] Research blood for pr otocol [id number] (Catalyst/Proactive): INTRAOPERATIVE US STAT 04/06/2022 6:49 AM Resu lts for this REVENUE INTEGRITY ANALYST procedure are i n the results section. MRI SKULL BASE WITH AND Routine 04/04/2022 5:15 PM Benign neop lasm Results for this WITHOUT CONTRAST REVENUE INTEGRITY ANALYST of cerebral procedure a re in meninges the results section. CT HEAD W WO CONTRAST Routine 04/04/2022 2:14 PM Benign neopla sm Results for this REVENUE INTEGRITY ANALYST of cerebral procedure are i n meninges the results section. OCT, RETINA - OU - BOTH Routine 04/04/2022 11:13 Blurring of Results for this EYES AM REVENUE INTEGRITY ANALYST visual image procedure are i n the results section. OCT, OPTIC NERVE - OU - Routine 04/04/2022 11:13 Blurring of Results for this BOTH EYES AM REVENUE INTEGRITY ANALYST visual image procedure are i n the results section. RAMACHANDRAN VISUAL FIELD, Routine 04/04/2022 11:13 Blurring of R esults for this INTERMEDIATE - OU - BOTH AM REVENUE INTEGRITY ANALYST visual image pro cedure are in EYES the results section. COVID-19 (SARS-COV-2) Routine 04/04/2022 8:39 AM Results for this PCR-ASYMPTOMATIC MC REVENUE INTEGRITY ANALYST procedur e are in the results section. XR CHEST 2 VW Routine 04/04/2022 8:22 AM Benign neoplasm Resul ts for this REVENUE INTEGRITY ANALYST of cerebral procedure are i n meninges the results section. CONFIRM ABORH TYPE Routine 04/04/2022 8:08 AM Res ults for this REVENUE INTEGRITY ANALYST procedure are i n the results section. TMP CROSSMATCH Routine 04/04/2022 8:07 AM Results for this INTERPRETATION REVENUE INTEGRITY ANALYST procedure are in the results section. CLOT EXPIRATION DATE Routine 04/04/2022 8:07 AM R esults for this REVENUE INTEGRITY ANALYST procedure are i n the results section. TMP INTERPRETATION Routine 04/04/2022 8:07 AM Res ults for this ANTIBODY SCREEN NEGATIVE REVENUE INTEGRITY ANALYST pro cedure are in the results section. ANTIBODY SCREEN Routine 04/04/2022 8:07 AM Benign neoplasm Res ults for this REVENUE INTEGRITY ANALYST of cerebral procedure are i n meninges the results section. ABORH Routine 04/04/2022 8:07 AM Benign neoplasm Result s for this REVENUE INTEGRITY ANALYST of cerebral procedure are i n meninges the results section. FRACTIONATED BILIRUBIN Routine 04/04/2022 8:07 AM Benign neopl asm Results for this REVENUE INTEGRITY ANALYST of cerebral procedure are i n meninges the results section. TOTAL PROTEIN Routine 04/04/2022 8:07 AM Benign neoplasm Resul ts for this REVENUE INTEGRITY ANALYST of cerebral procedure are i n meninges the results section. ASPARTATE Routine 04/04/2022 8:07 AM Benign neoplasm Result s for this AMINOTRANSFERASE REVENUE INTEGRITY ANALYST of cerebral procedure a re in meninges the results section. ALANINE AMINOTRANSFERASE Routine 04/04/2022 8:07 AM Benign maycol plasm Results for this REVENUE INTEGRITY ANALYST of cerebral procedure are i n meninges the results section. ALKALINE PHOSPHATASE Routine 04/04/2022 8:07 AM Benign neoplas m Results for this REVENUE INTEGRITY ANALYST of cerebral procedure are i n meninges the results section. ALBUMIN LEVEL Routine 04/04/2022 8:07 AM Benign neoplasm Resul ts for this REVENUE INTEGRITY ANALYST of cerebral procedure are i n meninges the results section. CALCIUM LEVEL TOTAL Routine 04/04/2022 8:07 AM Benign neoplasm Results for this REVENUE INTEGRITY ANALYST of cerebral procedure are i n meninges the results section. .GLOMERULAR FILTRATION Routine 04/04/2022 8:07 AM Benign neopl asm Results for this RATE REVENUE INTEGRITY ANALYST of cerebral procedure are i n meninges the results section. SERUM CREATININE Routine 04/04/2022 8:07 AM Benign neoplasm Re sults for this REVENUE INTEGRITY ANALYST of cerebral procedure are i n meninges the results section. ELECTROLYTE PANEL Routine 04/04/2022 8:07 AM Benign neoplasm R esults for this REVENUE INTEGRITY ANALYST of cerebral procedure are i n meninges the results section. BLOOD UREA NITROGEN Routine 04/04/2022 8:07 AM Benign neoplasm Results for this REVENUE INTEGRITY ANALYST of cerebral procedure are i n meninges the results section. GLUCOSE LEVEL Routine 04/04/2022 8:07 AM Benign neoplasm Resul ts for this REVENUE INTEGRITY ANALYST of cerebral procedure are i n meninges the results section. MANUAL DIFFERENTIAL Routine 04/04/2022 8:07 AM Benign neoplasm Results for this REVENUE INTEGRITY ANALYST of cerebral procedure are i n meninges the results section. Results CBC Routine 04/04/2022 8:07 AM Benign neoplasm Result s for this REVENUE INTEGRITY ANALYST of cerebral procedure are i n meninges the results section. HUMAN CHORIONIC Routine 04/04/2022 8:07 AM Benign neoplasm Res ults for this GONADOTROPIN, REVENUE INTEGRITY ANALYST of cerebral procedure are in QUALITATIVE, URINE meninges the resul ts section. URINALYSIS WITH Routine 04/04/2022 8:07 AM Benign neoplasm Res ults for this MICROSCOPIC IF INDICATED REVENUE INTEGRITY ANALYST of cerebral pro cedure are in meninges the results section. THYROID STIMULATING Routine 04/04/2022 8:07 AM Benign neoplasm Results for this HORMONE REVENUE INTEGRITY ANALYST of cerebral procedure are i n meninges the results section. TYPE AND SCREEN Routine 04/04/2022 8:07 AM Benign neoplasm REVENUE INTEGRITY ANALYST of cerebral meninges FREE THYROXINE Routine 04/04/2022 8:07 AM Benign neoplasm Resu lts for this REVENUE INTEGRITY ANALYST of cerebral procedure are i n meninges the results section. PROTHROMBIN TIME Routine 04/04/2022 8:07 AM Benign neoplasm Re sults for this REVENUE INTEGRITY ANALYST of cerebral procedure are i n meninges the results section. APTT Routine 04/04/2022 8:07 AM Benign neoplasm Result s for this REVENUE INTEGRITY ANALYST of cerebral procedure are i n meninges the results section. HEMOGLOBIN A1C Routine 04/04/2022 8:07 AM Benign neoplasm Resu lts for this REVENUE INTEGRITY ANALYST of cerebral procedure are i n meninges the results section. MAGNESIUM LEVEL Routine 04/04/2022 8:07 AM Benign neoplasm Res ults for this REVENUE INTEGRITY ANALYST of cerebral procedure are i n meninges the results section. COMPREHENSIVE METABOLIC Routine 04/04/2022 8:07 AM Benign neop lasm PANEL REVENUE INTEGRITY ANALYST of cerebral meninges COMPLETE BLOOD COUNT W/ Routine 04/04/2022 8:07 AM Benign neop lasm DIFFERENTIAL REVENUE INTEGRITY ANALYST of cerebral meninges MRI ORBITS W WO CONTRAST Routine 11/26/2021 7:45 AM Meningioma , not Results for this CDT otherwise procedure are i n specified the results section. OSI CT BRAIN Routine 09/07/2021 2:21 PM Cancer Results f or this CDT procedure are i n the results section. OSI MRI HEAD Routine 08/05/2021 2:21 PM Cancer Results f or this REVENUE INTEGRITY ANALYST procedure are i n the results section. OSI CT BRAIN Routine 08/04/2021 2:21 PM Cancer Results f or this REVENUE INTEGRITY ANALYST procedure are i n the results section. PATHOLOGY OUTSIDE Routine 08/03/2021 Results fo r this INTERPRETATION procedure are in the results section. after 08/01/2021 Results .Serum Creatinine (04/08/2022 6:29 AM REVENUE INTEGRITY ANALYST)Only the most recent of3 resultswithin the time period is included. athologist [facility] Creatinine 0.67 0.51 - 0.95 [facility] mg/dL [facility] Specimen Anatomical Collection Method Collection Time Receive d Time (Source) Location / / Volume Laterality Blood 04/08/2022 6:29 AM 6:58 REVENUE INTEGRITY ANALYST AM REVENUE INTEGRITY ANALYST Mirta Otero MD LAB BLOOD ORDERABLES Performing Organization Address City/State/ZIP Code Phon e Number [facility] CANCER Unless otherwise noted, [place] [address] [place] all lab tests performed by: Division of Pathology and Laboratory Medicine [address] (ABNORMAL) .CBC (04/08/2022 6:29 AM REVENUE INTEGRITY ANALYST)Only the most recent of3 resultswithin the time period is included. athologist Signature WBC 13.2 (H) 4.0 - 11.0 MS MD K/uL [facility] RBC 3.45 (L) 4.00 - MS MD 5.50 M/uL [facility] Hgb 10.9 (L) 12.0 - MS MD 16.0 gm/dL [facility] Hct 32.0 (L) 37.0 - MS MD 47.0 % [facility] MCV 93 82 - 98 fL [facility] MCH 31.6 (H) 27.0 - MS MD 31.0 pg [facility] MCHC 34.1 31.0 - MS MD 36.0 gm/dL [facility] RDW-SD 42.2 35.1 - MS MD 46.3 [facility] RDW-CV 12.5 12.0 - MS 15.5 % [facility] Platelet count 142 140 - 440 MS K/uL [facility] MPV 12.2 (H) 4.0 - 10.4 MS [facility] INRBC 0.0 <=0.0 % [facility] Comment: The INRBC (instrument NRBC) value reflec ts the enumeration of nucleated red blood cells contained i n a 200uL sample of whole blood analyzed by the instrumen t. This value may differ from the NRBC value reported in a manual differential, which is based on a 100 cell differentia l. Specimen Anatomical Collection Method Collection Time Receive d Time (Source) Location / / Volume Laterality Blood 04/08/2022 6:29 AM 6:52 REVENUE INTEGRITY ANALYST AM REVENUE INTEGRITY ANALYST Mirta Otero MD LAB BLOOD ORDERABLES Performing Organization Address City/State/ZIP Code Phon e Number [facility] CANCER Unless otherwise noted, [place] [address] [place] all lab tests performed by: Division of Pathology and Laboratory Medicine [address] [place] [address] Glomerular Filtration Rate (04/08/2022 6:29 AM REVENUE INTEGRITY ANALYST)Only the most recent of3 resultswithin the time period is included. P athologist Signature eGFR 122 >=60 [facility] [place] mL/min/1.73 [facility] sq. m Comment: The eGFRcr is calculated with the 2020 KD-EPI creatinine equation using creatinine, patient's age, and sex for adults 18 years of age and older. Other factors, especially muscle mass, may affect accuracy and need to be considered. According to the Kidney Disease: Improvi ng Global Outcomes (KDIGO) CKD Work Group 2012 Clinical Practice Guideline, chronic kidney disease (CKD) is defined as the abnormalities of kidney structure or function, present for more than 3 months, with implications for health. CKD should be c lassified by cause, GFR category, and albuminuria category. KDIGO guidelines provide the following GFR categories Stage Description GFR mL/min/1.73 m2 G1* Normal or high >= 90 G2* Mildly decreased 60-89 G3a Mildly to moderately decreased 45-59 G3b Moderately to severely decreased 30- 44 G4 Severely decreased 15-29 G5 Kidney failure <15 *In the absence of evidence of kidney da mage, neither G1 nor G2 fulfill criteria for CKD. Specimen Anatomical Collection Method Collection Time Receive d Time (Source) Location / / Volume Laterality Blood 04/08/2022 6:29 AM 2 6:58 REVENUE INTEGRITY ANALYST AM REVENUE INTEGRITY ANALYST Mirta Otero MD LAB BLOOD ORDERABLES Performing Organization Address City/State/ZIP Code Phon e Number [facility] CANCER Unless otherwise noted, [place] [address] [place] all lab tests performed by: Division of Pathology and Laboratory Medicine [address] (ABNORMAL) Differential (04/08/2022 6:29 AM REVENUE INTEGRITY ANALYST)Only the most recent of3 results within the time period is included. athologist Signature Neutrophil % 79.4 (H) 42.0 - [facility] 66.0 % [facility] Lymphocyte % 10.9 (L) 24.0 - [facility] 44.0 % [facility] Monocyte % 9.0 (H) 2.0 - 7.0 [facility] Eosinophil % 0.0 (L) 1.0 - 4.0 [facility] % [facility] Basophil % 0.2 0.0 - 1.0 [facility] IGRE % 0.5 (H) 0.0 - 0.4 [facility] Comment: IGRE % count includes Metamyelo cytes, Myelocytes, and Promyelocytes. Neutrophil Abs 10.46 (H) 1.70 - 7.30 K/uL MS MD [facility] Lymphocyte Abs 1.44 1.00 - 4.80 K/uL MS MD [facility] Monocyte Abs 1.18 (H) 0.08 - 0.70 K/uL MS MD [facility] Eosinophil Abs 0.00 (L) 0.04 - 0.40 K/uL MS MD DORON CONN [facility] Basophil Abs 0.02 0.00 - 0.10 K/uL MS MD [facility] IG Abs 0.06 (H) 0.00 - 0.04 K/uL MS MD INGA Ramirez [facility] Specimen Anatomical Collection Method Collection Time Receive d Time (Source) Location / / Volume Laterality Blood 04/08/2022 6:29 AM 2 6:52 REVENUE INTEGRITY ANALYST AM REVENUE INTEGRITY ANALYST Mirta Otero MD LAB BLOOD ORDERABLES Performing Organization Address City/[facility] Phon e Number [facility] CANCER Unless otherwise noted, [address] all lab tests performed by: Division of Pathology and Laboratory Medicine [address] BUN (04/08/2022 6:29 AM REVENUE INTEGRITY ANALYST)Only the most recent of3 resultswithin the time period is included. P athologist Signature BUN 11 6 - 23 [facility] mg/dL [facility] Specimen Anatomical Collection Method Collection Time Receive d Time (Source) Location / / Volume Laterality Blood 04/08/2022 6:29 AM 2 6:58 REVENUE INTEGRITY ANALYST AM REVENUE INTEGRITY ANALYST Mirta Otero MD LAB BLOOD ORDERABLES Performing Organization Address [facility] Phon e Number [facility] CANCER Unless otherwise noted, [address] all lab tests performed by: Division of Pathology and Laboratory Medicine [address] [place], [place] [address]vard Phosphorus Level (04/08/2022 6:29 AM REVENUE INTEGRITY ANALYST)Only the most recent of2 resultswithin the time period is included. P athologist Signature Phosphorus 2.9 2.5 - 4.5 [facility] mg/dL [facility] Specimen Anatomical Collection Method Collection Time Receive d Time (Source) Location / / Volume Laterality Blood 04/08/2022 6:29 AM 2 6:58 REVENUE INTEGRITY ANALYST AM REVENUE INTEGRITY ANALYST Mirta Otero MD LAB BLOOD ORDERABLES Performing Organization Address City/[facility] Phon e Number [facility] CANCER Unless otherwise noted, [address] all lab tests performed by: Division of Pathology and Laboratory Medicine [address] [place] [address] [place] Magnesium Level (04/08/2022 6:29 AM REVENUE INTEGRITY ANALYST)Only the most recent of3 resultswithin the time period is included. P athologist Signature Magnesium 2.1 1.6 - 2.6 [facility] mg/dL [facility] Specimen Anatomical Collection Method Collection Time Receive d Time (Source) Location / / Volume Laterality Blood 04/08/2022 6:29 AM 2 6:58 REVENUE INTEGRITY ANALYST AM REVENUE INTEGRITY ANALYST Mirta Otero MD LAB BLOOD ORDERABLES Performing Organization Address City/[facility]/ZIP Code Phon e Number [facility] CANCER Unless otherwise noted, [address] all lab tests performed by: Division of Pathology and Laboratory Medicine [address] (ABNORMAL) Glucose Level (04/08/2022 6:29 AM REVENUE INTEGRITY ANALYST)Only the most recent of3 resultswithin the time period is included. P athologist Signature Glucose Level 115 (H) 70 - 99 [facility] mg/dL [facility] Comment: Effective 12/23/15, the glucose reference intervals have been updated based on [place] [employer] guidelines (Standards of Medical Care in Diabetes 2016. Diabetes Care 2016; 39: S13-S22). Fasting blood glucose: Normal: 70-99 mg/dL Impaired fasting glucose (increased risk for diabetes or pre-diabetes): 100- 125 mg/dL Diabetes mellitus: >/=126 mg/dL Random blood glucose: Normal: 70-199 mg/dL Note: Random glucose >100 mg/dL is assoc iated with increased risk for diabetes Specimen Anatomical Collection Method Collection Time Receive d Time (Source) Location / / Volume Laterality Blood 04/08/2022 6:29 AM 2 6:58 REVENUE INTEGRITY ANALYST AM REVENUE INTEGRITY ANALYST Mirta Otero MD LAB BLOOD ORDERABLES Performing Organization Address City/[facility]/ZIP Code Phon e Number [facility] Unless otherwise noted, [address] all lab tests performed by: Division of Pathology and Laboratory Medicine [address] Calcium Level (04/08/2022 6:29 AM REVENUE INTEGRITY ANALYST)Only the most recent of3 resultswithin the time period is included. athologist Signature Calcium Lvl 9.0 8.4 - 10.2 [facility] mg/dL [facility] Specimen Anatomical Collection Method Collection Time Receive d Time (Source) Location / / Volume Laterality Blood 04/08/2022 6:29 AM 2 6:58 REVENUE INTEGRITY ANALYST AM REVENUE INTEGRITY ANALYST Mirta Otero MD LAB BLOOD ORDERABLES Performing Organization Address City/[facility]/ZIP Code Phon e Number [facility] CANCER Unless otherwise noted, [address] all lab tests performed by: Division of Pathology and Laboratory Medicine [facility] Electrolyte Panel (04/08/2022 6:29 AM REVENUE INTEGRITY ANALYST)Only the most recent of3 resultswithin the time period is included. athologist Signature Sodium Lvl 141 136 - 145 [facility] mEq/L [facility] Potassium Lvl 4.1 3.5 - 5.1 [facility] mEq/L [facility] Chloride 105 98 - 107 [facility] mEq/L [facility] CO2 25 22 - 29 [facility] mEq/L [facility] Anion Gap 11 4 - 14 [facility] mEq/L [facility] Specimen Anatomical Collection Method Collection Time Receive d Time (Source) Location / / Volume Laterality Blood 04/08/2022 6:29 AM 2 6:58 REVENUE INTEGRITY ANALYST AM REVENUE INTEGRITY ANALYST Mirta Otero MD LAB BLOOD ORDERABLES Performing Organization Address City/[facility]/ZIP [facility] Phon e Number [facility] CANCER Unless otherwise noted, [address] all lab tests performed by: Division of Pathology and Laboratory Medicine [facility] [facility] (ABNORMAL) POC Glucose Screen (04/07/2022 6:39 PM REVENUE INTEGRITY ANALYST)Only the most recent of3 resultswithin the time period is included. athologist Signature POC Glucose 137 (H) 70 - 99 [facility] mg/dL Comment: Capillary blood samples, e.g. obtained b y fingerstick, may have inaccurate results in patients with decreased peripheral blood flow. Method description: All results are boogie ured using Electrochemistry test methodology. The glucose in the sample mixes with the reagents on the test strip. The reaction produces an electric current. The amount of current produced is proportion al to the glucose concentration in the blood. PO Sample Type Capillary POC [facility] Performing Lab [facility] POC [facility]EL[facility] R Comment: [facility], [address] [facility], [place] [address]; Lab Direct or: Lyudmila Raymundo MD Specimen Anatomical Collection Method Collection Time Receive d Time (Source) Location / / Volume Laterality Blood 04/07/2022 6:39 PM 2 6:39 REVENUE INTEGRITY ANALYST PM REVENUE INTEGRITY ANALYST Thomas Santos MD POCT ORDERABLES - DEVICE Performing Organization Address City/State/ZIP Code Phon e Number POC [facility] Unless otherwise noted, [place] [address] lab tests performed by: Division of Pathology and Laboratory Medicine [address] [facility] [address] Head without Contrast (04/07/2022 12:52 AM REVENUE INTEGRITY ANALYST) Anatomical Region Laterality Modality Head Computed Tomography Specimen (Source) Anatomical Collection Method Collection Time Re ceived Time Location / / Volume Laterality 04/07/2022 2:27 AM REVENUE INTEGRITY ANALYST Impressions 04/07/2022 4:30 AM REVENUE INTEGRITY ANALYST 1. Expected postsurgical changes related to the resection of residual sphenoid wing meningioma with intraorbital extension, as detailed above. 2. No unexpected large acute hematoma within the right surgical bed or orbit. 3. No acute intracranial hemorrhage. I personally reviewed these image(s) lisa ng with the resident's/fellow's interpretations, certify that if a procedure was performed I was physically present, and agree with the final report. Narrative 04/07/2022 4:30 AM REVENUE INTEGRITY ANALYST FULL RESULT: EXAMINATION: CT HEAD WO CONTRAST on 03/29 12:52 AM COMPARISON: CT head 04/04/2022 and MR sku ll 04/04/2022 HISTORY: Meningioma. 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 Patient underwent right mo dified orbital zygomatic approach to sku ll base resection of of residual tumor on 04/06/2022. INDICATION: Brain mass, neoplasm suspect ed TECHNIQUE: CT scan of the brain was perf ormed without intravenous contrast as per departmental protocol. FINDINGS: Postoperative changes related to resecti on of sphenoid wing meningioma is noted with multiple foci of air and tiny bony fragments within the resection bed (images 21 through 27, series 3) and overlying surgical mesh. There is soft tissue air within the right face anterior to the right masseter muscle (image 13, series 5) and within the right licensed optical dispenser space (images 20 through 37, series 5). The later al wall of the orbit/sphenoid triangle h as been resected. There is no unexpected large acute hematoma within the surgical bed. Right periorbital soft tissue edema and edema/enlargement of the right lacr imal gland are noted (image 24, series 3 ; image 21, series 601). There is mild mass effect on the right lateral rectus muscle due to the enlarged lacrimal gland. There is posterior changes extending int o the right orbital apex (image 29, seri es 601). There is no unexpected acute hematoma within the right orbit. There is postoperative blood and air in the subgaleal space of the right frontal parietal lobe (images 60 through 64, se wendy 3). There is no acute intracranial hemorrhag e. There is no evidence for large vessel acute territorial infarction. There is no significant mass effect, hydrocephalus or extra axial collection. The paranasal sinuses are clear except f or minimal mucosal thickening at the floor the right maxillary sinus. The mastoid air cells and middle ears are clear. Procedure Note Rolan Tijerina MD - 04/07/2022 FULL RESULT: EXAMINATION: CT HEAD WO CONTRAST on 03/29 12:52 AM COMPARISON: CT head 04/04/2022 and MR sku ll 04/04/2022 HISTORY: Meningioma. 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 Patient underwent right modified orbital zygomatic approach to skull base resecti on of of residual tumor on 04/06/2022. INDICATION: Brain mass, neoplasm suspect ed TECHNIQUE: CT scan of the brain was perf ormed without intravenous contrast as per departmental protocol. FINDINGS: Postoperative changes related to resecti on of sphenoid wing meningioma is noted with multiple foci of air and tiny bony fragments within the resection bed (images 21 through 27, series 3) and overlying surgical mesh. There is soft tissue air within th e right face anterior to the right masseter muscle (image 13, series 5) and within the right licensed optical dispenser space (images 20 through 37, series 5). The lateral wall of the orbit/sphenoid triangle has been resected. There is no unexpected large acute hematoma within the surgical bed. Right periorbital soft tissue edema and edema/enlargement of the right lacrimal gland are noted (image 24, series 3; image 21, series 601). There is mild mass effect on the right lateral rectus muscle due to the enlarged lacrimal gland. There is posterior changes extending into the right orbital apex (image 29, series 601). There is no unexpected acute hematoma wi thin the right orbit. There is postoperative blood and air in the subgaleal space of the right frontal parietal lobe (images 60 through 64, se wendy 3). There is no acute intracranial hemorrhag e. There is no evidence for large vessel acute territorial infarction. There is no significant mass effect, hydrocephalus or extra axial collection. The paranasal sinuses are clear except f or minimal mucosal thickening at the floor the right maxillary sinus. The mastoid air cells and middle ears are clear. IMPRESSION: 1. Expected postsurgical changes related to the resection of residual sphenoid wing meningioma with intraorbital extension, as detailed above. 2. No unexpected large acute hematoma wi thin the right surgical bed or orbit. 3. No acute intracranial hemorrhage. I personally reviewed these image(s) lisa ng with the resident's/fellow's interpretations, certify that if a procedure was performed I was physically present, and agree with the final report. Mirta Otero MD IMG CT ORDERABLES Pathology Surgical Interpretation (04/06/2022 2:40 PM REVENUE INTEGRITY ANALYST) Component Value Ref Test Analysis Performed Pathologis t Range Method Time At Signature Submitted Benign neoplasm of 04/11/2022 [facility] Clinical cerebral meninges 4:58 PM History [D32.0] REVENUE INTEGRITY ANALYST Diagnosis 04/11/2022 [facility] Electro nically A. BONE, RIGHT SPHENOID WING, RESECTION: 4:58 PM signed by REVENUE INTEGRITY ANALYST Silvano Angelo MENINGIOMA (RESIDUAL) MD [place] LEAD RADIOLOGIC TECHNOLOGIST WHO GRADE 1 03/29 at 4:58 PM Mitotic index (H&E): <1 mitosis / 10 HPF (2.3 mm2) Ki67 index (MIB1): 1.9% (maximum), 1.5% (average) (SEE COMMENT) B. DENSE FIBROUS CONNECTIVE TISSUE, DESIGNATED RIGHT PERIO RBITA, RESECTION: MENINGIOMA (RESIDUAL) LEAD RADIOLOGIC TECHNOLOGIST WHO GRADE 1 (SEE COMMENT) Comment 04/11/2022 [facility] The patient has a history of right sphenoid wing/anterior clinoid en plaque Meningioma with intraorbital extension, LEAD RADIOLOGIC TECHNOLOGIST WHO grade 1, diagnosed by subtotal resection performed at a referring institution 4:58 PM on 08/03/2021 (reviewed at [facility], see [id number]). 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 Mitotic activity is inconspicuous on H&E- stained sections (<1/10 HPF; 1 H PF = 0.23 mm2). Computer-ass isted automated quantitation yields a correspondingly low maximum single-field Ki67 antigen (MIB1) labeling index of 1.9% (1,217 nuclei counted), with a concordantly low aver age index of 1.5% (2,550 tot al nuclei counted). There are no atypical features. An H&E-stained section from specimen B shows dense fibrous connective tissue, consistent with periorbita, with infiltrating nests of Meningioma of similar morphologic appearance as that seen in specimen A. 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 Gross A: 04/11/2022 [facility] Description Sphenoid, right sphenoid win g,permanent --------- or 25: Received fresh are 3 irregular unoriented pieces of roughened pink-red glistening hemorrhagic soft tissue, possible mucosa and osseous tissue (2. 4:58 PM 2 x 1.2 x 0.7 cm in aggregate). Case discussed with Dr Marlen Ledbetter. Eduardo totelliot in A1. REVENUE INTEGRITY ANALYST PB B: Orbit, right, right paraorbi kizzy,permanent---------or 25: Received fresh is a single irregular unoriented portion of pink-red glistening soft tissue (1.4 x 0.5 x 0.4 cm). Case discussed with Dr. Ledbetter. Eduardo toto in B1. PB Biomarker 04/11/2022 [facility] Block(s) Primary Tumor block: A1 (4 unstained tissue sections a re available) 4:58 PM REVENUE INTEGRITY ANALYST Disclaimer "Some tests 04/11/2022 [facility] reported here may 4:58 PM have been REVENUE INTEGRITY ANALYST developed and performance characteristics determined by [facility] Pathology and Laboratory Medicine. These tests have not been specifically cleared or approved by the U.S. Food and Drug Administration. If applicable, controls were reviewed and showed appropriate reactivity." Specimen Anatomical Collection Method Collection Time Receive d Time (Source) Location / / Volume Laterality Tissue 04/06/2022 2:40 PM 2 3:45 (Sphenoid) REVENUE INTEGRITY ANALYST PM REVENUE INTEGRITY ANALYST Tissue (Orbit, 04/06/2022 3:16 PM 3:45 Right) REVENUE INTEGRITY ANALYST PM REVENUE INTEGRITY ANALYST Thomas Santos MD LAB PATHOLOGY ORDERABLES Performing Organization Address City/State/ZIP Code Phon e Number [facility] [place] [address] [address] Intraoperative Ultrasound - For Image Storage (without Report) (04/06/2022 6:49 AM REVENUE INTEGRITY ANALYST) Specimen (Source) Anatomical Location Collection Method / Collectio n Time Received Time / Laterality Volume Narrative Systemgenerated, Documentation - 6:49 AM REVENUE INTEGRITY ANALYST This procedure requires no interpretatio n from the radiologist. Thomas Santos MD IMG NON DI ORDERABLES MRI Skull Base with and without Contrast (04/04/2022 5:15 PM REVENUE INTEGRITY ANALYST) Anatomical Region Laterality Modality Head Magnetic Resonance Specimen (Source) Anatomical Collection Method Collection Time Re ceived Time Location / / Volume Laterality 04/05/2022 11:30 AM REVENUE INTEGRITY ANALYST Impressions 04/05/2022 11:55 AM REVENUE INTEGRITY ANALYST 1. Redemonstrated are postoperative terrazas ges of biopsy/debulking of right skull base/orbital meningioma with residual disease involving the orbit, middle cranial fossa, adjacent osseous structures and sk ull base foramina as detailed above. Thi s is not significantly changed when compared to previous exam. Narrative 04/05/2022 11:55 AM REVENUE INTEGRITY ANALYST FULL RESULT: Examination: MRI SKULL BASE WITH AND WIT HOUT CONTRAST on 04/04/2022 5:15 PM Clinical History: Preoperative Stealth p rotocol for intracranial meningioma. Patient has known meningioma status post biopsy/resection on 08/03/2021 at outside institution with biopsy demonstrating grade 1 meningioma. Indication: pre-op, high resolution, wit h STEALTH, no fiducials, meningioma Comparison: MRI brain, 08/05/2021 and 04/05/2021 Technique: Multisequence MRI brain was p erformed with and without intravenous contrast. 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 Residual thickening and hyperostosis of sclerot ic bone involving the right lateral orbi kizzy wall, sphenoid wing, orbital roof, posterior ethmoid/posterior medial orbital wall extending to the planum sphenoidale is identified. Residual enhancement lisa ng the lateral extraconal orbital space is identified which abuts the superior and lateral rectus and extends to the orbital apex resulting in crowding and the orbital apex. There is also extension to t he superior and inferior orbital fissure s with abutment of the foramen rotundum. The lesion extends posteriorly to the middle cranial fossa exerting mild mass effect on the noninvolved Meckel's cave and extends to involve the adjacent caverno us sinus. A dural tail/ en plauqe disease extends along the superior orbital wall and planum sphenoidale. There is mild mass effect on the optic nerve at the orbital apex/canalicular segment and precisternal segment with crowding/involvement of the optic canal. There is mild proptosis. In comparison to the previous MRI these findings are not significantly changed. Procedure Note Evelio Hernandes MD - 04/05/2022 FULL RESULT: Examination: MRI SKULL BASE WITH AND WIT HOUT CONTRAST on 04/04/2022 5:15 PM Clinical History: Preoperative Stealth p rotocol for intracranial meningioma. Patient has known meningioma status post biopsy/resection on 08/03/2021 at outside institution with biopsy demonstrating grade 1 meningioma. Indication: pre-op, high resolution, wit h STEALTH, no fiducials, meningioma Comparison: MRI brain, 08/05/2021 and 04/05/2021 Technique: Multisequence MRI brain was p erformed with and without intravenous contrast. 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 Residual thickening and hyperostosis of sclerotic bone involving the right later al orbital wall, sphenoid wing, orbital roof, posterior ethmoid/posterior medial orbital wall extending to the planum sphenoidale is identified. Residual enhancement along the lateral extraconal orbital space is iden tified which abuts the superior and lateral rectus and extends to the orbital apex resulting in crowding and the orbital apex. There is also extension to the superior and inferior orbital fissures with abutment of the fo ramen rotundum. The lesion extends posteriorly to the middle cranial fossa exerting mild mass effect on the noninvolved Meckel's cave and extends to involve the adjacent cavernous sinus. A dural tail/ en plauqe disease e xtends along the superior orbital wall and planum sphenoidale. There is mild mass effect on the optic nerve at the orbital apex/canalicular segment and precisternal segment with crowding/involvement of the optic canal. There is mild proptosis. In comparison to the previous MRI these findings are not significantly changed. IMPRESSION: 1. Redemonstrated are postoperative terrazas ges of biopsy/debulking of right skull base/orbital meningioma with residual disease involving the orbit, middle cranial fossa, adjacent osseous structures and skull base foramina as detailed above. This is not significa ntly changed when compared to previous exam. Ge Kahn HOME CARE SCHEDULER IMG MRI ORDERABLES CT Head with and without Contrast (04/04/2022 2:14 PM REVENUE INTEGRITY ANALYST) Anatomical Region Laterality Modality Head Computed Tomography Specimen (Source) Anatomical Collection Method Collection Time Re ceived Time Location / / Volume Laterality 04/04/2022 2:19 PM REVENUE INTEGRITY ANALYST Impressions 04/04/2022 2:51 PM REVENUE INTEGRITY ANALYST Stable appearance of RIGHT sphenoid wing as described above. Narrative 04/04/2022 2:51 PM REVENUE INTEGRITY ANALYST FULL RESULT: Examination: CT HEAD W WO CONTRAST on 2:14 PM Clinical history: Benign neoplasm of cer ebral meninges Indication: Not for stroke, trauma, head ache, sinusitis, or syncope, preop, w/ Stealth, sphenoid wing meningioma; Comparison: Outside CT head on 09/07/2021 , MRI will be on 11/26/2021 Technique: Axial CT images were acquired from skull base to vertex without and with the use of intravenous contrast. Sagittal and coronal reconstructed images were generated. Findings: RIGHT pterional craniotomy elly nges are redemonstrated. There is stable residual thickening and sclerotic expansion of RIGHT sphenoid bone with extension into sphenoid ethmoid sinuses and orbit al roof causing mass effect on the optic nerve, superior and lateral rectus muscles. Superior and inferior orbital fissures are patent. Sclerotic expansion of anterior clinoid with plaque-like meningi khang appears stable. Encephalomalacia is again noted RIGHT anterior temporal lobe. There is no acute intracranial hemorrhag e or extra-axial fluid collection. There is no large vascular territorial infarction. There is no hydrocephalus. No midline shift is seen. Procedure Note George Flores MD - 04/04/2022 FULL RESULT: Examination: CT HEAD W WO CONTRAST on 2:14 PM Clinical history: Benign neoplasm of cer ebral meninges Indication: Not for stroke, trauma, head ache, sinusitis, or syncope, preop, w/ Stealth, sphenoid wing meningioma; Comparison: Outside CT head on 09/07/2021 , MRI will be on 11/26/2021 Technique: Axial CT images were acquired from skull base to vertex without and with the use of intravenous contrast. Sagittal and coronal reconstructed images were generated. Findings: RIGHT pterional craniotomy elly nges are redemonstrated. There is stable residual thickening and sclerotic expansion of RIGHT sphenoid bone with extension into sphenoid ethmoid sinuses and orbital roof causing mass effect on the optic nerve, superior and lateral rectus muscles. Superior and inferior orbital fissures are patent. Sclerotic expansion of anterior clinoid with plaque-like meningioma appears stable. Encephalomalacia is again noted RIGHT anterior temporal lobe . There is no acute intracranial hemorrhag e or extra-axial fluid collection. There is no large vascular territorial infarction. There is no hydrocephalus. No midline shift is seen. IMPRESSION: Stable appearance of RIGHT sphenoid wing as described above. Ge Kahn IDA IMG CT ORDERABLES OCT, Retina - OU - Both Eyes (04/04/2022 11:13 AM REVENUE INTEGRITY ANALYST) Specimen (Source) Anatomical Location Collection Method / Collectio n Time Received Time / Laterality Volume Narrative Nancy Karimi MD - 04/04/2022 12:01 PM REVENUE INTEGRITY ANALYST This result has an attachment that is no t available. Normal macular volume. No sign of serou s retinopathy Nancy Karimi MD OPHTHALMOLOGY IMG ORDERABLES OCT, Optic Nerve - OU - Both Eyes (04/04/2022 11:13 AM REVENUE INTEGRITY ANALYST) Specimen (Source) Anatomical Location Collection Method / Collectio n Time Received Time / Laterality Volume Nancy Langley MD - 04/04/2022 12:00 PM REVENUE INTEGRITY ANALYST average thickness of peripapillary retinal nerve fiber layer right eye and increase left eye Nancy Karimi MD OPHTHALMOLOGY IMG ORDERABLES Ramachandran Visual Field, Intermediate - OU - Both Eyes (04/04/2022 11:13 AM REVENUE INTEGRITY ANALYST) Specimen (Source) Anatomical Location Collection Method / Collectio n Time Received Time / Laterality Volume Narrative Nancy Karimi MD - 04/07/2022 10:47 PM REVENUE INTEGRITY ANALYST Big blind spot bilateral otherwise non-specific changes visual field defect bilateral . No hemianopia, bitemp oral or homonymous. Nancy Karimi MD OPHTHALMOLOGY IMG ORDERABLES COVID-19 (SARS-CoV-2) PCR-Asymptomatic (04/04/2022 8:39 AM REVENUE INTEGRITY ANALYST) [facility] Method Time Signature COVID19 (SARS Not Detected Not Detected [facility]) [facility] Comment: This test is a qualitative reverse-trans criptase polymerase chain reaction (RT- PCR) developed for the [employer] system and intended for qualitative detection of SARS CoV-2 RNA in nasopharyngeal a nd oropharyngeal swab specimens collecte d from any individuals, including those suspected o f COVID-19 by their healthcare provider, and those without symptoms or other reasons to suspect COVID-19. A fact sheet for patients provided by the touch up worker ( [employer]) can be rev iewed at: https://www.fda.gov/media/479730/downloa d. A fact sheet for Health Care providers is provided by the touch up worker ([employer]) and can be reviewed at: https://www.fda.gov/media/161906/download Results must be interpreted within the c ontext of all relevant clinical and laboratory findings and should not form the sole basis for a diagnosis or treatment decision. Positive results do not rule out bacterial infection or co- infection with other viruses. Negative results do not rule ou t SARS-CoV-2 and must be combined with clinical observations, patient history, and/or epidemiological information. "Presumptive Positive" results are due t o partial amplification of SARS-CoV-2 targets and indicates low amounts of virus present in the specimen at or near the limit of detection. Regardless, individuals with "Presumptive Positive" results should be managed per institutional guidelines as individuals positive for SARS-CoV-2 virus, including use of appropriate infection control protocols. Internal controls are included to assess for possible amplification inhibitors. If inhibition is detected, testing is repeated and if inhibition is confirmed the specimen is resulted as "Invalid". When an "Invalid" result occurs, it is recomm ended to wait 3 days before submitting a new spec imen for testing if clinically indicated. This assay has been approved by the FDA for use only under Emergency Use Authorization (EUA) in laboratories that have been CLIA-certified to perform moderate-complexity and high-complexity tests. The performance characteristics of this assay were verified by the Microbiology Laboratory at [facility], CLIA Accreditation #: [id number] and CAP Accreditation #: [id number]. COVID19 SARS Source AIRPORT OPERATIONS OFFICER Swab MS MD [facility] COVID19 SARS Indication pre ob. [facility] Specimen (Source) Anatomical Collection Method Collection Time Re ceived Time Location / / Volume Laterality Nasopharyngeal Swab 04/04/2022 8:39 04/04 AM REVENUE INTEGRITY ANALYST 1:18 PM REVENUE INTEGRITY ANALYST Thomas Santos MD MICROBIOLOGY - GENERAL ORDER ADELA Performing Organization Address City/State/ZIP Code Phon e Number [facility] Unless otherwise noted, [place] [address] [place] all lab tests performed by: Division of Pathology and Laboratory Medicine [facility] X-ray Chest 2 Views (04/04/2022 8:22 AM REVENUE INTEGRITY ANALYST) Anatomical Region Laterality Modality Chest Digital Radiography Specimen (Source) Anatomical Collection Method Collection Time Re ceived Time Location / / Volume Laterality 04/04/2022 8:23 AM REVENUE INTEGRITY ANALYST Impressions 04/04/2022 8:24 AM REVENUE INTEGRITY ANALYST No acute cardiorespiratory disease or ra diographic evidence of metastatic disease. Narrative 04/04/2022 8:24 AM REVENUE INTEGRITY ANALYST FULL RESULT: Examination: XR CHEST 2 VW, 04/04/2022 8: 22 AM Clinical History: Benign neoplasm of cer ebral meninges Indication: Baseline Chest X-Ray Comparison: None Technique: Posteroanterior, lateral and dual-energy radiographs of the chest. Findings: The lungs are normal. There is no pleura l effusion or pneumothorax. There is no mediastinal or hilar adenopathy. Cardiac silhouette is normal. Procedure Note Aguilar Black MD - 04/04/2022Formatti ng of this note might be different from the original. FULL RESULT: Examination: XR CHEST 2 VW, 04/04/2022 8: 22 AM Clinical History: Benign neoplasm of cer ebral meninges Indication: Baseline Chest X-Ray Comparison: None Technique: Posteroanterior, lateral and dual-energy radiographs of the chest. Findings: The lungs are normal. There is no pleura l effusion or pneumothorax. There is no mediastinal or hilar adenopathy. Cardiac silhouette is normal. IMPRESSION: No acute cardiorespiratory disease or ra diographic evidence of metastatic disease. Ge Kahn IDA IMG DIAGNOSTIC IMAGING ORDER ADELA Confirm ABORh (04/04/2022 8:08 AM REVENUE INTEGRITY ANALYST) athologist Signature ABORh Confirm. O POS [facility] Specimen Anatomical Collection Method Collection Time Receive d Time (Source) Location / / Volume Laterality Blood 04/04/2022 8:08 AM 2 8:51 REVENUE INTEGRITY ANALYST AM REVENUE INTEGRITY ANALYST Gael Son MD BLOOD BANK TEST ORDERABLES Performing Organization Address City/State/ZIP Code Phon e Number [facility] Unless otherwise noted, [address] all lab tests performed by: Division of Pathology and Laboratory Medicine [address] Clot Expiration Date (04/04/2022 8:07 AM REVENUE INTEGRITY ANALYST) [facility] gist Method Time Signature T & S 04/07/2022 [facility] Specimen Anatomical Collection Method Collection Time Receive d Time (Source) Location / / Volume Laterality Blood 04/04/2022 8:07 AM 2 8:51 REVENUE INTEGRITY ANALYST AM REVENUE INTEGRITY ANALYST Ge Greena Femi IDA BLOOD BANK TEST ORDERABLES Performing Organization Address City/State/ZIP [facility] Phon e Number [facility] Unless otherwise noted, [address] all lab tests performed by: Division of Pathology and Laboratory Medicine [address] Fractionated Bilirubin (04/04/2022 8:07 AM REVENUE INTEGRITY ANALYST) athologist Signature Bili Total 0.3 <=1.2 mg/dL [facility] Comment: Indocyanine Green (ICG) may cause falsel y elevated bilirubin results. Total and direct bilirubin must not be measured from samples containing indocyanine green. False elevation of total bilirubin can b e seen in patients with IgG concentrations above 28 g/L. Testing Performed at [facility], [address] [place] [address], [address], [place] [address] Bili Direct <0.2 <=0.3 mg/dL [facility] Comment: Indocyanine Green (ICG) may cause falsel y elevated bilirubin results. Total and direct bilirubin must not be measured from samples containing indocyanine green. Testing Performed at [facility], [address] [place] [address], [address], [place] [address] Bili Indirect See Note 0.0 - 0.9 mg/dL [facility] Comment: Unable to calculate Indirect Bilirubin r esult due to some parameters are outside reportable range Testing Performed at [facility], [address] [place] [address], [address], [place] [address] Specimen Anatomical Collection Method Collection Time Receive d Time (Source) Location / / Volume Laterality Blood 04/04/2022 8:07 AM 8:37 REVENUE INTEGRITY ANALYST AM REVENUE INTEGRITY ANALYST Ge Mcclelland Femi PRIETO LAB BLOOD ORDERABLES Performing Organization Address City/State/ZIP Code Phon e Number [facility] [address] [facility]. [place] [id number] TMP Interpretation Antibody Screen Negative (04/04/2022 8:07 AM REVENUE INTEGRITY ANALYST) [facility] Method Time Signature TMP Auto Neg At the MS MD JOHANNA Aragon [facility], CANCER CENTER patient plasma shows no evidence of RBC alloantibodi es. Comment: MD Casey DAVIS Dictated by: MD Casey DAVIS Dictated Date/Time: 04.04.2022 14:19 PM REVENUE INTEGRITY ANALYST Transcribed Date/Time: 04.04.2022 14:19 PM REVENUE INTEGRITY ANALYST Electronically Signed By: MD Casey DAVIS on 04.04.2022 14:19 PM Specimen Anatomical Collection Method Collection Time Receive d Time (Source) Location / / Volume Laterality Blood 04/04/2022 8:07 AM 2 8:51 REVENUE INTEGRITY ANALYST AM REVENUE INTEGRITY ANALYST Ge Kahn APN BLOOD BANK TEST ORDERABLES Performing Organization Address City/[facility] Phon e Number [facility] Unless otherwise noted, [address] all lab tests performed by: Division of Pathology and Laboratory Medicine [address] [place] [address] TMP Interpretation Crossmatch (04/04/2022 8:07 AM REVENUE INTEGRITY ANALYST) [facility] gist Method Time Signature TMP XM Interp RBC units MS crossmatched for [place] transfusion CANCER [facility] CENTER acceptable. Comment: MD Casey DAVIS [id number] Dictated by: MD Casey DAVIS Dictated Date/Time: 04.06.2022 14:49 PM REVENUE INTEGRITY ANALYST Transcribed Date/Time: 04.06.2022 14:49 PM REVENUE INTEGRITY ANALYST Electronically Signed By: MD Casey DAVIS on 04.06.2022 14:49 PM Specimen Anatomical Collection Method Collection Time Receive d Time (Source) Location / / Volume Laterality Blood 04/04/2022 8:07 AM 2 8:51 REVENUE INTEGRITY ANALYST AM REVENUE INTEGRITY ANALYST Ge Kahn APN BLOOD BANK TEST ORDERABLES Performing Organization Address City/[facility] Phon e Number [facility] Unless otherwise noted, [address] all lab tests performed by: Division of Pathology and Laboratory Medicine [address] [place] [address] aPTT (04/04/2022 8:07 AM REVENUE INTEGRITY ANALYST) P athologist Signature aPTT 27.6 22.8 - 34.2 [facility] second(s) Comment: Testing Performed at [facility] Lab Counselor Aide [address] [facility] [address] [place] [id number] Specimen Anatomical Collection Method Collection Time Receive d Time (Source) Location / / Volume Laterality Blood 04/04/2022 8:07 AM 2 8:11 REVENUE INTEGRITY ANALYST AM REVENUE INTEGRITY ANALYST Narrative [facility] - 04/04/2022 8:37 AM REVENUE INTEGRITY ANALYST This lab cannot be scheduled at the [facility] locations due to collection/proccessing restrictions: [facility] and [facility]. Ge Kahn IDA LAB BLOOD ORDERABLES Performing Organization Address City/State/ZIP Code Phon e Number [facility] [address] [place] [address] [address] ABORh (04/04/2022 8:07 AM REVENUE INTEGRITY ANALYST) P athologist Signature ABORh. O POS [facility] Specimen Anatomical Collection Method Collection Time Receive d Time (Source) Location / / Volume Laterality Blood 04/04/2022 8:07 AM 2 8:51 REVENUE INTEGRITY ANALYST AM REVENUE INTEGRITY ANALYST Ge Kahn IDA BLOOD BANK TEST ORDERABLES Performing Organization Address City/[facility]/ZIP Code Phon e Number [facility] Unless otherwise noted, [place] [address] CENTER all lab tests performed by: Division of Pathology and Laboratory Medicine [address] [place] [address] Chrisman (ABNORMAL) Urinalysis w/Microscopic if Indicated (04/04/2022 8:07 AM REVENUE INTEGRITY ANALYST) Patholo gist Method Time Signature UA Color Colorless (A) Straw-Yel [facility] UA Appear Clear Clear [facility] UA Glucose NEG NEG mg/dL [facility] UA Bili NEG NEG [facility] UA Ketones NEG NEG mg/dL [facility] UA Spec Grav 1.009 1.003 - [facility] 1.035 [facility] UA Blood NEG NEG [facility] UA pH 7.0 5.0 - 9.0 [facility] UA Protein NEG NEG mg/dL [facility] UA Urobilinogen NEG NEG [facility] UA Nitrite NEG NEG [facility] UA Leuk Est NEG NEG [facility] UA Comment See Comment [facility] Comment: No microscopic exam performed, physiochemical findings are negative Specimen Anatomical Collection Method Collection Time Receive d Time (Source) Location / / Volume Laterality Urine 04/04/2022 8:07 AM 2 9:11 REVENUE INTEGRITY ANALYST AM REVENUE INTEGRITY ANALYST Ge Kahn HOME CARE SCHEDULER URINE ORDERABLES Performing Organization Address City/State/ZIP Code Phon e Number [facility] Unless otherwise noted, [place] [address] CENTER all lab tests performed by: Division of Pathology and Laboratory Medicine [address] Prothrombin Time with INR (04/04/2022 8:07 AM REVENUE INTEGRITY ANALYST) athologist [facility] PT 12.6 11.9 - 14.1 [facility] second(s) Comment: Testing Performed at [facility] Lab Counselor Aide [facility] [address] [place] [address] INR 0.98 0.89 - 1.10 [facility] Comment: Testing Performed at [facility] Lab Counselor Aide [facility] [address] [place] [id number] Specimen Anatomical Collection Method Collection Time Receive d Time (Source) Location / / Volume Laterality Blood 04/04/2022 8:07 AM 2 8:11 REVENUE INTEGRITY ANALYST AM REVENUE INTEGRITY ANALYST Narrative [facility] - 04/04/2022 8:37 AM REVENUE INTEGRITY ANALYST This lab cannot be scheduled at the [facility] locations due to collection/proccessing restrictions: [facility] and [facility]. Ge Krystin Soy HOME CARE SCHEDULER LAB BLOOD ORDERABLES Performing Organization Address City/[facility]/ZIP Code Phon e Number [facility] [address] [place] [address] [address] Antibody Screen (04/04/2022 8:07 AM REVENUE INTEGRITY ANALYST) [facility] ABSC [facility] Specimen Anatomical Collection Method Collection Time Receive d Time (Source) Location / / Volume Laterality Blood 04/04/2022 8:07 AM 2 8:51 REVENUE INTEGRITY ANALYST AM REVENUE INTEGRITY ANALYST Ge Greena [employer] BLOOD BANK TEST ORDERABLES Performing Organization Address City/[facility]/ZIP Code Phon e Number [facility] Unless otherwise noted, [address] all lab tests performed by: Division of Pathology and Laboratory Medicine [address] U HCG (04/04/2022 8:07 AM REVENUE INTEGRITY ANALYST) [facility] beta hCG Ql Negative Negative [facility] Comment: Very dilute urine specimens may cause fa lse negative results. Suggest repeat in 48 hours with a first morning voided urine or request quantitative serum beta HCG test. Testing Performed at [facility] Lab Counselor Aide [facility] [address] [place] [address] Specimen Anatomical Collection Method Collection Time Receive d Time (Source) Location / / Volume Laterality Urine 04/04/2022 8:07 AM 2 8:54 REVENUE INTEGRITY ANALYST AM REVENUE INTEGRITY ANALYST Ge KINCAIDN URINE ORDERABLES Performing Organization Address [facility]/ZIP [facility] Phon e Number [facility] [address] [place] [address] [address] ALT (04/04/2022 8:07 AM REVENUE INTEGRITY ANALYST) athologist Signature ALT 8 <=33 U/L [facility] Comment: Testing Performed at [facility] Lab Am [facility], [address], [address], [place] [address] Specimen Anatomical Collection Method Collection Time Receive d Time (Source) Location / / Volume Laterality Blood 04/04/2022 8:07 AM 2 8:37 REVENUE INTEGRITY ANALYST AM REVENUE INTEGRITY ANALYST Ge Kahn APN LAB BLOOD ORDERABLES Performing Organization Address [facility]/ZIP Code Phon e Number [facility] [address] [place] [address] [address] Aspartate Aminotransferase (04/04/2022 8:07 AM REVENUE INTEGRITY ANALYST) athologist Signature AST 15 <=32 U/L [facility] Comment: Testing Performed at [facility] Lab Am [facility], [address], [address], [place] [address] Specimen Anatomical Collection Method Collection Time Receive d Time (Source) Location / / Volume Laterality Blood 04/04/2022 8:07 AM 2 8:37 REVENUE INTEGRITY ANALYST AM REVENUE INTEGRITY ANALYST Ge KINCAIDN LAB BLOOD ORDERABLES Performing Organization Address City/[facility]/ZIP [facility] Phon e Number [facility] [address] [place] [address] [address] TSH (04/04/2022 8:07 AM REVENUE INTEGRITY ANALYST) athologist Signature TSH 1.29 0.27 - 4.20 [facility] mcunit/mL Comment: Note: New Methodology and Reference Ra nge change effective 09/14/2017 at 1400 Testing Performed at [facility] Lab Counselor Aide [facility], [address], [address], [place] [address] Specimen Anatomical Collection Method Collection Time Receive d Time (Source) Location / / Volume Laterality Blood 04/04/2022 8:07 AM 2 8:37 REVENUE INTEGRITY ANALYST AM REVENUE INTEGRITY ANALYST Ge KINCAIDN LAB BLOOD ORDERABLES Performing Organization Address City/[facility]/ZIP Code Phon e Number [facility] [address] [place] [address] [address] Free T4 (04/04/2022 8:07 AM REVENUE INTEGRITY ANALYST) athologist Signature T4 Free 1.11 0.93 - 1.70 [facility] ng/dL Comment: Testing Performed at [facility] Lab [facility], [address] [place] [address], [address], [place] [address] Specimen Anatomical Collection Method Collection Time Receive d Time (Source) Location / / Volume Laterality Blood 04/04/2022 8:07 AM 2 8:37 REVENUE INTEGRITY ANALYST AM REVENUE INTEGRITY ANALYST Ge Kahn HOME CARE SCHEDULER LAB BLOOD ORDERABLES Performing Organization Address [facility]/ZIP Code Phon e Number [facility] [address] [place] [address]. [place] [address] [address] Total Protein (04/04/2022 8:07 AM REVENUE INTEGRITY ANALYST) athologist Signature Total Protein 7.4 6.4 - 8.3 [facility] g/dL Comment: Testing Performed at [facility] Lab [facility], [address] [place] [address], [address], [place] [address] Specimen Anatomical Collection Method Collection Time Receive d Time (Source) Location / / Volume Laterality Blood 04/04/2022 8:07 AM 2 8:37 REVENUE INTEGRITY ANALYST AM REVENUE INTEGRITY ANALYST Ge Kahn HOME CARE SCHEDULER LAB BLOOD ORDERABLES Performing Organization Address City/[facility]/ZIP [facility] Phon e Number [facility] [address] [place] [address]. [place] [address] [address] Alkaline Phosphatase (04/04/2022 8:07 AM REVENUE INTEGRITY ANALYST) athologist Signature Alk Phos 66 35 - 104 U/L [facility] Comment: Testing Performed at [facility] Lab [facility], [address], [address], [place] [address] Specimen Anatomical Collection Method Collection Time Receive d Time (Source) Location / / Volume Laterality Blood 04/04/2022 8:07 AM 2 8:37 REVENUE INTEGRITY ANALYST AM REVENUE INTEGRITY ANALYST Ge KINCAIDN LAB BLOOD ORDERABLES Performing Organization Address City/State/ZIP Code Phon e Number [facility] [address] [place] [address] [address] Hemoglobin A1c (04/04/2022 8:07 AM REVENUE INTEGRITY ANALYST) athologist Signature A1C 5.1 4.3 - 5.6 % [facility] Comment: HbA1c values >=6.5% are diagnostic of di abetes mellitus. Diagnosis should be confirmed by repeat testing. Therapeutic Action suggested: >8.0% HbA1 c; Goal of therapy: <7.0% HbA1c Specimen Anatomical Collection Method Collection Time Receive d Time (Source) Location / / Volume Laterality Blood 04/04/2022 8:07 AM 2 8:54 REVENUE INTEGRITY ANALYST AM REVENUE INTEGRITY ANALYST Ge KINCAIDN LAB BLOOD ORDERABLES Performing Organization Address City/State/ZIP Code Phon e Number [facility] Unless otherwise noted, [place] [address] CENTER all lab tests performed by: Division of Pathology and Laboratory Medicine [facility] Albumin Level (04/04/2022 8:07 AM REVENUE INTEGRITY ANALYST) athologist Signature Albumin Lvl 4.9 3.5 - 5.2 [facility] gm/dL Comment: Testing Performed at [facility], [address], [address], [place] [address] Specimen Anatomical Collection Method Collection Time Receive d Time (Source) Location / / Volume Laterality Blood 04/04/2022 8:07 AM 2 8:37 REVENUE INTEGRITY ANALYST AM REVENUE INTEGRITY ANALYST Ge KINCAIDN LAB BLOOD ORDERABLES Performing Organization Address City/State/ZIP Code Phon e Number [facility] [address] [place] [address] [address] MRI Orbits with and without Contrast (11/26/2021 7:45 AM CDT) Anatomical Region Laterality Modality Head Magnetic Resonance Specimen (Source) Anatomical Collection Method Collection Time Re ceived Time Location / / Volume Laterality 11/26/2021 11:27 AM CDT Impressions 11/27/2021 8:15 PM CDT Complex postsurgical changes related to subtotal resection of the right sphenoid wing/anterior clinoid with left frontal meningioma. Suspected residual en plaque meningioma along the posterior aspect of the floor of the right anterior cranial fossa, anterior aspect of the right cave rnous sinus and right lateral orbital wall with small component within the right po sterior inferior ethmoidal air cell. 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 INDICATION: Baseline Heidy Queen study . COMPARISON: Outside center MRI 08/05/2021 , 05/23 2021 and 04/05/2021, MRI face 05/23/2021. TECHNIQUE: Multi-sequence MRI of the orb it with and without intravenous contrast as per standard departmental protocol. FINDINGS: There are postsurgical changes related t o right pterional craniectomy, right anterior clinoidectomy. There are changes of subtotal resection of the right sphenoid wing/anterior clinoid en plaque menin gioma. In comparison to prior scan there is stable postsurgical extradural fluid collection overlying the craniectomy defect in the right temporal fossa measuring about 4.5 x 1.3 cm in size. There is residual enhancement likely rep resenting en plaque residual meningioma along the medial aspect of the right middle cranial fossa with involvement of the anterior aspect of the cavernous sinus (series 5 [id number]). Smooth dural th ickening and enhancement is seen along the right sphenoid ridge (series 5 image 15) also likely representing residual en plaque meningioma. Again demonstrated scl erotic hyperostotic appearance of the ri ght sphenoid triangle. right lateral orbital wall and right posterior inferior ethmoidal air cell. There is enhancing soft tissue along the right lateral orbital wall (series 5 image 20), likely represe nting intraorbital meningioma. There is stable right exophthalmos. There is enhancement along the lateral wall of the right optic canal. There is small dural thic kening and enhancement along the floor o f the right anterior orbital floor (series 7 image 22) with extension into the right posterior inferior left ethmoidal air cell annotated on (series 5 image15). The left optic nerve chiasm is unremarka ble. The sella is not involved. Included brain parenchyma is unremarkable. The skull base flow voids are maintained. Procedure Note Rossana Carrera MD - 11/27/2021Formatting o f this note might be different from the original. 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 INDICATION: Baseline Heidy Queen study . COMPARISON: Outside center MRI 08/05/2021 , 05/23 2021 and 04/05/2021, MRI face 05/23/2021. TECHNIQUE: Multi-sequence MRI of the orb it with and without intravenous contrast as per standard departmental protocol. FINDINGS: There are postsurgical changes related t o right pterional craniectomy, right anterior clinoidectomy. There are changes of subtotal resection of the right sphenoid wing/anterior clinoid en plaque meningioma. In comparison to prior scan there is stable postsurgical extradural fluid collection overlying the craniectomy defect in the right temporal fossa measuring about 4.5 x 1.3 cm in size. There is residual enhancement likely rep resenting en plaque residual meningioma along the medial aspect of the right middle cranial fossa with involvement of the anterior aspect of the cavernous sinus (series 5 [id number]). Smooth dural thickening an d enhancement is seen along the right sphenoid ridge (series 5 image 15) also likely representing residual en plaque meningioma. Again demonstrated sclerotic hyperostotic appearance of the right sphenoid triangle. right la teral orbital wall and right posterior inferior ethmoidal air cell. There is enhancing soft tissue along the right lateral orbital wall (series 5 image 20), likely representing intraorbital meningioma. Th ere is stable right exophthalmos. There is enhancement along the lateral wall of the right optic canal. There is small dural thickening and enhancement along the floor of the right anterior orbital floor (series 7 i mage 22) with extension into the right posterior inferior left ethmoidal air cell annotated on (series 5 image15). The left optic nerve chiasm is unremarka ble. The sella is not involved. Included brain parenchyma is unremarkable. The skull base flow voids are maintained. IMPRESSION: Complex postsurgical changes related to subtotal resection of the right sphenoid wing/anterior clinoid with left frontal meningioma. Suspected residual en plaque meningioma along the posterior aspect of the floor of the right anterior cranial fossa, anteri or aspect of the right cavernous sinus and right lateral orbital wall with small component within the right posterior inferior ethmoidal air cell. Vidal Vigil NP IMG MRI ORDERABLES OSI CT Brain (09/07/2021 2:21 PM CDT)Only the most recent of2 resultswithin the time period is included. Specimen (Source) Anatomical Location Collection Method / Collectio n Time Received Time / Laterality Volume Narrative Systemgenerated, Documentation - 022 2:21 PM CDT Study acquired at another institution. For comparison only. No MD Queen originated interpretation requested or a vailable. Mitch Patel MD G OUTSIDE IMAGE ORDERABLES OSI MRI Head (08/05/2021 2:21 PM REVENUE INTEGRITY ANALYST) Specimen (Source) Anatomical Location Collection Method / Collectio n Time Received Time / Laterality Volume Narrative Systemgenerated, Documentation - 022 2:21 PM CDT Study acquired at another institution. For comparison only. No MD Queen originated interpretation requested or a vailable. Mitch SANCHEZG OUTSIDE IMAGE ORDERABLES Pathology Outside Interpretation (08/03/2021) Component Value Ref Test Analysis Performed Pathologis t Range Method Time At Signature Materials Accession#, Stained, Block, Unstained Collected Received 09/17/2021 [facility] Received A. [id number], 8 SS, 0 BLOCKS, 0 USS 08/03/2021 09/15/2021 3:26 PM CDT Diagnosis Outside materials ([id number] , 8 SS, 0 BLOCKS, 0 USS, collected on 08/03/2021): 09/17/2021 [facility] Electronically 3:26 PM signed by Donnie Cortez Bone, resection: CDT Nicolas-Nicole MENINGIOMA INVOLVING BONE MD michelle on 09/17/2021 at [facility]. Meninges, tumor, resection: 3:26 PM MENINGIOMA LEAD RADIOLOGIC TECHNOLOGIST WHO GRADE 1 (SEE COMMENT) D. Orbital tumor, resection: MENINGIOMA INVOLVING FIBROUS TISSUE E. Intraorbital tumor, resection: MENINGIOMA INVOLVING FIBROUS TISSUE Comment Per report, the patient has a sphenoid wing meningioma with intraorbital extension. 09/17/2021 [facility] 3:26 PM Microscopic examination show s a meningioma. Mitotic activity is inconspicuous (<1 per 10 high-power mc). Ki67 shows a proliferation index of ~3-5%. A nerve fragment is identified (specimen E). CDT Biomarker Tumor: [id number], 09/17/2021 [facility] Block(s) B2 3:26 PM CDT Disclaimer "Some tests 09/17/2021 [facility] reported here may 3:26 PM have been CDT developed and performance characteristics determined by [facility] Medicine. These tests have not been specifically cleared or approved by the U.S. Food and Drug Administration. If applicable, controls were reviewed and showed appropriate reactivity." Specimen (Source) Anatomical Collection Method Collection Time Re ceived Time Location / / Volume Laterality Tissue 08/03/2021 09/15/2021 1:20 PM CDT Tere Stewart MD LAB PATHOLOGY ORDERABLES Performing Organization Address City/State/ZIP Code Phon e Number [facility] [place] [address] [id number] after 08/01/2021 Insurance Payer Benefit Plan / Subscriber ID Effective Phone Address T ype Group Dates [facility] [id number] 2016-Prese [address] Medicaid [place] [id number] [place] [address] MandeepAnn Wong Personal/Family Self [address] (Home) [place] [address] Advance Directives Code Status Date Activated Date Inactivated Comments Full Code 04/06/2022 8:20 PM 04/08/2022 3:26 PM Care Teams Head Gauge Unit Operator Relationship Specialty Start Date End Date Lance Cortes MD PCP - External Referring Neurosurgery 09/23/[id number] [place] [address] Gael Son MD PCP - General Radiation Oncology 09/23/21 [address] [place] [address]
--- OUTSIDE RECORDS SUMMARY | 2022-08-01 19:24 | XMS REPORT | Continuity of Care Document ---
:1995 Author Organization [facility] t Address [address] [place] [address]. [address] [place] [address] Care Team Providers Name Role Phone Fiona REAGAN, Clarice Primary Care Physician SYSTEM, PROVIDER NOT IN Attending Clinician Unavailable ANA CHILDERS Attending Clinician Unavailable LANCE CORTES Attending Clinician Unavailable MAXINE NORMAN Attending Clinician Unavailable SHAHNAZ HOROWITZ Attending Clinician Unavailable Shahnaz Plaza Attending Clinician Terry SURVEY METHODOLOGIST, Lidya Attending Clinician Krystni Barnes RN Attending Clinician Unavailable MICHOACANO WATKINS Attending Clinician Unavailable Michoacano Watkins MD Attending Clinician Lizzie Manzano APN Attending Clinician Aaron Hebert MD Attending Clinician Jazzy Alvarado APN Attending Clinician MER ARMANDO Attending Clinician Unavailable Tr REAGAN, Mer Attending Clinician Karol Savage RN Attending Clinician Ge Kahn APN Attending Clinician Thelma MOSQUERA, Kalina Montez Attending Clinician Vignesh PRIETO, Bettye Jimenez Attending Clinician Emy REAGAN, Rony Attending Clinician Igor May CRNA Attending Clinician NITESH TO Attending Clinician Unavailable Huy REAGAN, Nitesh Attending Clinician Yissel Agudelo Attending Clinician Per Burgos Attending Clinician NANCY BUI Attending Clinician Unavailable Sachi REAGAN, Nancy Attending Clinician Kiki Bray RN Attending Clinician Unavailable CHANTAL RODRIGUEZ Attending Clinician Unavailable Ian REAGAN, Chantal Shaver Attending Clinician Rell MOSQUERA, Jenni Cr Attending Clinician Jay REAGAN, Agnes Schwarz Attending Clinician Musa EDWARDS, Vidal Attending Clinician VIDAL OLSON Attending Clinician Unavailable Michael EDWARDS, Cheryl Castaneda Attending Clinician Provider, [facility] Attending Clinician Unavailable Jeannie Frost MD Attending Clinician JEANNIE FROST Attending Clinician Unavailable UNKNOWN, ATTENDING Attending Clinician Unavailable Sebastian REAGAN, Lance Attending Clinician Alan Layne MD Attending Clinician Tere Stewart MD Attending Clinician GRACIELA BARRIOS Attending Clinician Unavailable Juan Shabana SAVAGE Attending Clinician [phone] Maxine Norman PA-C Attending Clinician HILARIA APARICIO Attending Clinician Unavailable Hilaria Barraza Attending Clinician SIERRA CANO Attending Clinician Unavailable RIN CASTILLO Attending Clinician Unavailable Rin Coker Attending Clinician Clarice Jaimes MD Attending Clinician SHABANA MARTINEZ Attending Clinician Unavailable Froy THOMASP, Marisela Jimenez Attending Clinician Draw, Clc-Bls Lab Attending Clinician Unavailable Darrell REAGAN, Rafiq Attending Clinician Princess Chery RN Attending Clinician Unavailable Only, Adc Test Attending Clinician Unavailable Mitch Swain MD Attending Clinician MITCH SWAIN Attending Clinician Unavailable Doctor Unassigned, [place] Attending Clinician Unavailable MICHAEL HYATT Attending Clinician Unavailable Provider, Ang-Rmchp Temp Attending Clinician Unavailable Edmar WHCNMichael Orozco Attending Clinician [phone] AneBen Alvares Attending Clinician BEN DAN Attending Clinician Unavailable Lab, Ang - Db Attending Clinician Unavailable Pob1, [facility] Attending Clinician Unavailable Daniel CHAVEZ, Svetlana Lopez Attending Clinician Chino Argueta MD Attending Clinician LANCE CORTES Admitting Clinician Unavailable SHAHNAZ HOROWITZ Admitting Clinician Unavailable MER ARMANDO Admitting Clinician Unavailable RIN CASTILLO Admitting Clinician Unavailable Lance Cortes MD Admitting Clinician Chino Argueta MD Admitting Clinician Payers Payer Name Policy Type Policy Number Effective Date Expiration Date S sally [place] [facility] 2021 2021 HEALTH PLAN CHIP 00:00:00 00:00:00 JASMYNE MURCIA [id number] 2016 HEALTH 00:00:00 Problems Condition Condition Condition Status Onset Resolution Last Treating Co mments Source Name Details Category Date Date Treatment Clinician Date Headache Headache Disease Active 2021-05 [facility] ity of 00:00: [place] 00 MD [facility] Blurring Blurring Disease Active 2021-05 Unive rs of visual of visual 1-08 ity of image image 00:00: 00 MD [facility] 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) 00 Medical infection infection Bran ch At risk At risk Disease Active Univers for for 3-09 ity of intracrani intracrani [place] Medical hemorrhage hemorrhage Br anch S/P S/P Disease Active Univers craniotomy craniotomy 3-09 it y of 00:00: Medical Branch At risk At risk Disease Active Univers for for 3-09 ity of seizures seizures 00:00: Medical Branch At risk At risk Disease Active Univers for for 3-09 ity of intracrani intracrani 00:00: [place] 00 Medical hemorrhage hemorrhage Br anch Meningioma Meningioma Disease Active U nivers 3-08 ity of 00:00: Medical Branch Meningioma Meningioma Disease Active U nivers 3-08 ity of 00:00: 00 MD [facility] Tubal Tubal Disease Active 2020-05 Univers ligation ligation 0-13 ity of status status 00:00: Medical Branch Disease Active 2018-05 U nivkathleen anemia anemia 2-27 ity of 00:00: 00 Medical Branch Thrombocyt Thrombocyt Disease Active 2018-05 Overview : Univers openia openia 0-18 Formattin ity of affecting affecting 00:00: g of this [place] 00 note Medi chava might be Branch different from the original. PLT 142 at 24w S/P tubal S/P tubal Disease Active Uni vers ligation ligation 9-17 ity of 00:00: Medical Branch H/O: manic H/O: manic Disease Active 2019- U [place] depressive depressive 5-24 it y of disorder disorder 00:00: 00 MD [facility] Obesity Obesity Disease Active 2017-05 Univers (BMI (BMI 0-18 ity of 30-39.9) 30-39.9) 00:00: [place] 00 Medical Branch Tobacco Tobacco Disease Active Univers use use 08-02 ity of 00:00: [place] 00 Medical Branch No known No known Disease [place] active active Health problems problems Allergies, Adverse Reactions, Alerts Allergy Allergy Status Severity Reaction(s) Onset Inactive Treating Comm ents Source Name Type Date Date Clinician Penicill Propensi Active Rash Method i ins ty to 02-02 adverse 00:00: [facility]osp[facility] reaction 00 l s to drug LATEX DRUG Active Low Rash 2013-0 MD INGREDI 11-26 [facility] 00:00: n 00 LATEX DRUG Active Low Rash 2013-0 MD INGREDI 11-26 [facility] 00:00: n 00 LATEX DRUG Active Low Rash 2013-0 MD INGREDI 11-26 [facility] 00:00: n 00 LATEX DRUG Active Low Rash 2013-0 MD INGREDI 11-26 [place] 00:00: n 00 LATEX DRUG Active Low Rash 2013-0 MD INGREDI 11-26 [place] 00:00: n 00 LATEX DRUG Active Low Rash 2013-0 MD INGREDI 11-26 [place] 00:00: n 00 LATEX DRUG Active Low Rash 2014-0 MD INGREDI 11-26 [place] 00:00: n 00 LATEX DRUG Active Low Rash 2014-0 MD INGREDI 11-26 [place] 00:00: n 00 LATEX DRUG Active Low Rash 2014-0 MD INGREDI 11-26 [place] 00:00: n 00 LATEX DRUG Active Low Rash 2014-0 MD INGREDI 11-26 [place] 00:00: n 00 LATEX DRUG Active Low Rash 2014-0 MD INGREDI 11-26 [place] 00:00: n 00 LATEX DRUG Active Low Rash 2014-0 MD INGREDI 11-26 [place] 00:00: n 00 LATEX DRUG Active Low Rash 2014-0 MD INGREDI 11-26 [place] 00:00: n 00 LATEX DRUG Active Low Rash 2014-0 MD INGREDI 11-26 [place] 00:00: n 00 LATEX DRUG Active Low Rash 2014-0 MD INGREDI 11-26 [place] 00:00: n 00 LATEX DRUG Active Low Rash 2014-0 MD INGREDI 11-26 [place] 00:00: n 00 LATEX DRUG Active Low Rash 2014-0 MD INGREDI 11-26 [place] 00:00: n 00 LATEX DRUG Active Low Rash 2013-0 MD INGREDI 11-26 [place] 00:00: n 00 LATEX DRUG Active Low Rash 2014-0 MD INGREDI 7- [place] 00:00: n 00 LATEX DRUG Active Low Rash 2014-0 MD INGREDI 7- [place] 00:00: n 00 LATEX DRUG Active Low Rash 2014-0 MD INGREDI 7- [place] 00:00: n 00 LATEX DRUG Active Low Rash 2014-0 MD INGREDI 7- [place] 00:00: n 00 LATEX DRUG Active Low Rash 2014-0 MD INGREDI 7- [place] 00:00: n 00 LATEX DRUG Active Low Rash 2014-0 MD INGREDI 7- [place] 00:00: n 00 LATEX DRUG Active Low Rash 2014-0 MD INGREDI 7- [place] 00:00: n 00 LATEX DRUG Active Low Rash 2014-0 MD INGREDI 7- [place] 00:00: n 00 LATEX DRUG Active Low Rash 2014-0 MD INGREDI 7- [place] 00:00: n 00 LATEX DRUG Active Low Rash 2014-0 MD INGREDI 7- [place] 00:00: n 00 LATEX DRUG Active Low Rash 2014-0 MD INGREDI 7- [place] 00:00: n 00 LATEX DRUG Active Low Rash 2014-0 MD INGREDI 7- [place] 00:00: n 00 LATEX DRUG Active Low Rash 2014-0 MD INGREDI 7- [place] 00:00: n 00 LATEX DRUG Active Low Rash 2014-0 MD INGREDI 7- [place] 00:00: n 00 LATEX DRUG Active Low Rash 2014-0 MD INGREDI 7- [place] 00:00: n 00 LATEX DRUG Active Low Rash 2014-0 MD INGREDI 7- [place] 00:00: n 00 LATEX DRUG Active Low Rash 2014-0 MD INGREDI 7- [place] 00:00: n 00 LATEX DRUG Active Low Rash 2014-0 MD INGREDI 7- [place] 00:00: n 00 LATEX DRUG Active Low Rash 2014-0 MD INGREDI 7- [place] 00:00: n 00 LATEX DRUG Active Low Rash 2014-0 MD INGREDI 7- [place] 00:00: n 00 LATEX DRUG Active Low Rash 2014-0 MD INGREDI 7- [place] 00:00: n 00 LATEX DRUG Active Low Rash 2014-0 MD INGREDI 7- [place] 00:00: n 00 LATEX DRUG Active Low Rash 2014-0 MD INGREDI 7- [place] 00:00: n 00 LATEX DRUG Active Low Rash 2014-0 MD INGREDI 7- [place] 00:00: n 00 LATEX DRUG Active Low Rash 2014-0 MD INGREDI 7- [place] 00:00: n 00 LATEX DRUG Active Low Rash 2014-0 MD INGREDI 7- [place] 00:00: n 00 LATEX DRUG Active Low Rash 2014-0 MD INGREDI 7- [place] 00:00: n 00 LATEX DRUG Active Low Rash 2014-0 MD INGREDI 7- [place] 00:00: n 00 LATEX DRUG Active Low Rash 2014-0 MD INGREDI 7- [place] 00:00: n 00 LATEX DRUG Active Low Rash 2014-0 MD INGREDI 7- [place] 00:00: n 00 LATEX DRUG Active Low Rash 2014-0 MD INGREDI 7- [place] 00:00: n 00 LATEX DRUG Active Low Rash 2014-0 MD INGREDI 7- [place] 00:00: n 00 LATEX DRUG Active Low Rash 2014-0 MD INGREDI 7- [place] 00:00: n 00 LATEX DRUG Active Low Rash 2014-0 MD INGREDI 7- [place] 00:00: n 00 LATEX DRUG Active Low Rash 2014-0 MD INGREDI 7- [place] 00:00: n 00 LATEX DRUG Active Low Rash 2014-0 MD INGREDI 7- [place] 00:00: n 00 LATEX DRUG Active Low Rash 2014-0 MD INGREDI 7- [place] 00:00: n 00 LATEX DRUG Active Low Rash 2014-0 MD INGREDI 7- [place] 00:00: n 00 LATEX DRUG Active Low Rash 2014-0 MD INGREDI 7- [place] 00:00: n 00 LATEX DRUG Active Low Rash 2014-0 MD INGREDI 7- [place] 00:00: n 00 LATEX DRUG Active Low Rash 2014-0 MD INGREDI 7- [place] 00:00: n 00 LATEX DRUG Active Low Rash 2014-0 MD INGREDI 7- [place] 00:00: n 00 LATEX DRUG Active Low Rash 2014-0 MD INGREDI 7- [place] 00:00: n 00 LATEX DRUG Active Low Rash 2014-0 MD INGREDI 7 [facility] 00:00: n 00 LATEX DRUG Active Low Rash 2014-0 MD INGREDI 7 [facility] 00:00: n 00 LATEX DRUG Active Low Rash 2014-0 MD INGREDI 7- [place] 00:00: n 00 LATEX DRUG Active Low Rash 2014-0 MD INGREDI 7 [place] 00:00: n 00 LATEX DRUG Active Low Rash 2014-0 MD INGREDI 11-26 [facility] 00:00: n 00 LATEX DRUG Active Low Rash 2014-0 MD INGREDI 7 [place] 00:00: n 00 LATEX DRUG Active Low Rash 2014-0 MD INGREDI 11-26 [facility] 00:00: n 00 LATEX DRUG Active Low Rash 2013-0 MD INGREDI 11-26 [facility] 00:00: n 00 LATEX DRUG Active Low Rash 2013-0 MD INGREDI 11-26 [place] 00:00: n 00 LATEX DRUG Active Low Rash 2013-0 MD INGREDI 11-26 [facility] 00:00: n 00 LATEX DRUG Active Low Rash 2013-0 MD INGREDI 11-26 [facility] 00:00: n 00 LATEX DRUG Active Low Rash 2013-0 MD INGREDI 11-26 [facility] 00:00: n 00 LATEX DRUG Active Low Rash 2013-0 MD INGREDI 11-26 [facility] 00:00: n 00 LATEX DRUG Active Rash 2013-0 Univers INGREDI 11-26 ity of 00:00: [place] 00 Medical Branch Latex Propensi Active Rash 2013-0 Univers ty to 11-26 ity of adverse 00:00: [place] reaction 00 Medical s to Branch drug LATEX DRUG Active Low Rash 2013-0 MD INGREDI 11-26 [facility] 00:00: n 00 LATEX DRUG Active Low Rash 2014-0 MD INGREDI 11-26 [facility] 00:00: n 00 LATEX DRUG Active Low Rash 2013-0 MD INGREDI 11-26 [facility] 00:00: n 00 LATEX DRUG Active Low Rash 2013-0 MD INGREDI 11-26 [facility] 00:00: n 00 LATEX DRUG Active Low Rash 2014-0 MD INGREDI 11-26 [facility] 00:00: n 00 Latex Propensi Active Rash 2013-0 Univers ty to 11-26 ity of adverse 00:00: [place] reaction 00 [facility] LATEX DRUG Active Low Rash 2014-0 MD INGREDI 7- [facility] 00:00: n 00 LATEX DRUG Active Low Rash 2014-0 MD INGREDI 7- [place] 00:00: n 00 LATEX DRUG Active Low Rash 2014-0 MD INGREDI 7- [place] 00:00: n 00 LATEX DRUG Active Low Rash 2014-0 MD INGREDI 7- [place] 00:00: n 00 LATEX DRUG Active Low Rash 2014-0 MD INGREDI 7- [place] 00:00: n 00 LATEX DRUG Active Low Rash 2014-0 MD INGREDI 7- [place] 00:00: n 00 LATEX DRUG Active Low Rash 2014-0 MD INGREDI 7- [place] 00:00: n 00 LATEX DRUG Active Low Rash 2014-0 MD INGREDI 7- [place] 00:00: n 00 LATEX DRUG Active Low Rash 2014-0 MD INGREDI 7- [place] 00:00: n 00 LATEX DRUG Active Low Rash 2014-0 MD INGREDI 7- [place] 00:00: n 00 LATEX DRUG Active Low Rash 2014-0 MD INGREDI 7- [place] 00:00: n 00 LATEX DRUG Active Low Rash 2014-0 MD INGREDI 7- [place] 00:00: n 00 LATEX DRUG Active Low Rash 2014-0 MD INGREDI 7- [place] 00:00: n 00 LATEX DRUG Active Low Rash 2014-0 MD INGREDI 7- [place] 00:00: n 00 LATEX DRUG Active Low Rash 2014-0 MD INGREDI 7- [place] 00:00: n 00 LATEX DRUG Active Low Rash 2014-0 MD INGREDI 7- [place] 00:00: n 00 LATEX DRUG Active Low Rash 2014-0 MD INGREDI 7- [place] 00:00: n 00 LATEX DRUG Active Low Rash 2014-0 MD INGREDI 7- [place] 00:00: n 00 LATEX DRUG Active Low Rash 2014-0 MD INGREDI 7- [place] 00:00: n 00 LATEX DRUG Active Low Rash 2014-0 MD INGREDI 7- [place] 00:00: n 00 LATEX DRUG Active Low Rash 2014-0 MD INGREDI 7- [place] 00:00: n 00 LATEX DRUG Active Low Rash 2014-0 MD INGREDI 7- [facility] 00:00: n 00 LATEX DRUG Active Low Rash 2013-0 MD INGREDI 11-26 [facility] 00:00: n 00 LATEX DRUG Active Low Rash 2013- MD INGREDI 11-26 [facility] 00:00: n 00 LATEX DRUG Active Low Rash 2013- MD INGREDI 11-26 [facility] 00:00: n 00 LATEX DRUG Active Low Rash 2013- MD INGREDI 11-26 [facility] 00:00: n 00 LATEX DRUG Active Low Rash 2013- MD INGREDI 11-26 [facility] 00:00: n 00 LATEX DRUG Active Low Rash 2013- MD INGREDI 11-26 [facility] 00:00: n 00 LATEX DRUG Active Low Rash 2013- MD INGREDI 11-26 [facility] 00:00: n 00 LATEX DRUG Active Low Rash 2013- MD INGREDI 11-26 [facility] 00:00: n 00 LATEX DRUG Active Low Rash 2013- MD INGREDI 11-26 [facility] 00:00: n 00 LATEX DRUG Active Low Rash 2013- MD INGREDI 11-26 [facility] 00:00: n 00 Social History Social Habit Start Date Stop Date Quantity Comments Source History [facility] Health Alcohol Std Drinks History [facility] Health Alcohol Binge History [facility] Health Alcohol Comment History of tobacco Smokes tobacco Un iversity of use daily [facility] Exposure to 2022-06-05 2022-06-15 Not sure University SARS-CoV-2 (event) 00:00:00 11:25:00 [facility] Alcohol intake 2022-04-11 2022-04-11 Ex-drinker University of 00:00:00 00:00:00 (finding) [facility] Cigarettes smoked 2022-04-06 2022-04-06 Univers ity of current (pack per 00:00:00 00:00:00 [facility] ) - Reported Cancer Ce nter Tobacco use and 2022-04-06 2022-04-06 Smokeless Universit y of exposure 00:00:00 00:00:00 tobacco non-user [place] [facility] History SDOH 2021-09-16 2021-09-16 1 [facility] Alcohol Frequency 00:00:00 00:00:00 Cigarette 2021-06-30 2021-06-30 University of pack-years 00:00:00 00:00:00 [facility] Sex Ass[birth year] At [birth year] Universit y of 00:00:00 00:00:00 [place] [facility] Smoking Status Start Date Stop Date Source Smokes tobacco daily 2022-04-06 00:00:00 Univers ity of [facility] Medications Ordered Filled Start Stop Current Ordering Indication Dosage Frequency Signature Comments Components Source Medication Medication Date Date Medication? Clinician (SIG) Name Name HYDROcodone 2021-05 Yes Other 1{tbl} Take 1 U nivers -acetaminop 2-07 chronic tablet by ity khoi luna (NORCO) 00:00: postoperati mouth as [place] 5 mg-325 mg 00 ve pain needed for MD per tablet severe [facility] pain. n [facility] lacosamide 2021-05 Yes Benign 100mg Take 2 Un tony (VIMPAT) 50 2-07 neoplasm of tablets ity of mg tablet 00:00: cerebral (100 mg) [place] 00 meninges by mouth MD every 12 [place] (twelve) n hours. [facility] traMADol 2021-05 Yes 50mg Take 1 Univers (ULTRAM) 50 1-22 tablet (50 it y of mg tablet 11:29: mg) by [place] 27 mouth 2 (two) [facility] times a n day as Cancer needed. [place] HYDROcodone 2021-05 Yes Benign 1{tbl} Take 1 Univers -acetaminop 1-22 neoplasm of tablet by ity kho[place] (NORCO) 00:00: cerebral mouth [place] 5 mg-325 mg 00 meninges every 8 M D per tablet (eight) [place] o hours as n needed for Cancer moderate Center pain or severe pain. amoxicillin 2021-05 Benign 875mg Take 1 Univers -clavulanat 1-18 11-29 neoplasm of tablet ity of e 00:00: 05:59 cerebral (875 mg) [place] (Augmentin) 00 :00 meninges by mouth 875 mg-125 twice [place] mg per daily for n tablet 10 days. Cancer Center senna-docus 2021-05 Yes Benign 2{tbl} Take 2 Univers ate 1-11 neoplasm of tablets by it y of (SENOKOT-S) 00:00: cerebral mouth 2 Larry 8.6 mg-50 00 meninges (two) MD mg tablet times a [facility] day as n needed for Cancer constipati Center on. lacosamide 2021-05- No Benign 100mg Take 2 U nivers (VIMPAT) 50 06-08 1207 neoplasm of tablets ity of mg tablet 00:00: 00:00 cerebral (100 mg) [place] 00 :00 meninges by mouth MD every 12 [place] (twelve) n hours. Cancer Center HYDROcodone 2021-05- No Benign 1{tbl} Take 1 Univers -acetaminop 06-08 neoplasm of tablet by ity of hen (NORCO) 00:00: 00:00 cerebral mouth [place] 5 mg-325 mg 00 :00 meninges every 6 M D per tablet (six) [facility] hours as n needed for Cancer moderate Center pain or severe pain. traMADol 2021-05- No Chronic 50mg Take 1 Uni vers (Ultram) 50 004-08 pain tablet (50 i ty of mg tablet 00:00: 00:00 syndrome mg) by [place] aviles 00 :00 mouth 2 MD (two) [facility] times a n day as Cancer needed for Center severe pain. levETIRAcet 2021-05- No Benign Take 1 U nivers am 1,000 mg 0 11- neoplasm of tablet ity of Tb24 00:00: 00:00 cerebral (1000 mg) [place] as 00 :00 meninges by mouth MD in the [facility] morning. n [facility] levETIRAcet 2021- No Benign TAKE 1 U nivers am (KEPPRA) 01-11 neoplasm of TABLET BY ity of 500 mg 00:00: 00:00 cerebral MOUTH [place] tablet 00 :00 meninges TWICE A MD DAY [facility] valACYclovi 2021- No Unive rs r (VALTREX) 12-27 10 ity of 1000 mg 00:00: 00:00 [place] tablet 00 :00 MD [facility] acetaminoph 2021- No Benign 1{tbl} Take 1 Univers en-codeine 12-22 11-11 neoplasm of tablet by ity of (TYLENOL 00:00: 00:00 cerebral mouth [place] as #3) 300 00 :00 meninges every 4 MD mg-30 mg (four) [facility] tablet hours as n needed for Cancer moderate Center pain. levETIRAcet 2021- No Benign 500mg Take 1 Univers am (Keppra) 12-22 08-16 neoplasm of tablet ity of 500 mg 00:00: 00:00 cerebral (500 mg) [place] tablet 00 :00 meninges by mouth MD twice [facility] daily. n [facility] Center benzonatate Yes [id number] 200mg Take 2 Univers 100 mg 6-06 capsules ity of capsule 00:00: by mouth [place] 00 every 8 Medical (eight) Branch hours as needed for Cough. benzonatate Yes [id number] 200mg Take 2 Univers 100 mg 6-06 capsules ity of capsule 00:00: by mouth [place] 00 every 8 Medical (eight) Branch hours as needed for Cough. benzonatate Yes [id number] 200mg Take 2 Univers 100 mg 6-06 capsules ity of capsule 00:00: by mouth [place] 00 every 8 Medical (eight) Branch hours as needed for Cough. benzonatate No TAKE 2 Uni vers (TESSALON) 6-06 10-17 CAPSULES ity of 100 mg 00:00: 00:00 BY MOUTH [place] capsule 00 :00 EVERY 8 MD (EIGHT) [facility] HOURS n NEEDED FOR Cancer COUGH. Center amoxicillin 2021- No [id number] 1{tbl} Take 1 Univers -clavulanat 6-06 06-14 tablet by it y of e 00:00: 04:59 mouth 2 [place] (AUGMENTIN) 00 :00 (two) Medical 875-125 mg times Branch per tablet daily for 7 days. ProAir HFA 2021- No TAKE 2 Univ ers 90 6-05 10-17 PUFFS BY ity of mcg/actuati 00:00: 00:00 MOUTH [place] on inhaler 00 :00 EVERY 6 MD HOURS [facility] NEEDED n Cancer Center dexamethaso No Meningioma, Take 1 Univers ne 10-02 08-16 not tablet ity of (DECADRON) 00:00: 00:00 otherwise (2mg) by [place] 2 mg tablet 00 :00 specified mouth MD twice a [facility] day n Cancer Center pantoprazol Meningioma, 40mg Take 1 Univers e 10-02 08-16 not tablet (40 ity of (Protonix) 00:00: 00:00 otherwise mg) by [place] 40 mg EC 00 :00 specified mouth MD tablet every [place] morning n before Cancer breakfast. Center valACYclovi 2021- No 1000mg Take 1,000 Univers r (VALTREX) 4-26 07-19 mg by ity of 1000 mg 00:00: 00:00 mouth 3 [place] tablet 00 :00 (three) MD times a ers day. n Cancer Center butalbital- Yes [facility] acetaminoph 4-18 Health en-caffeine 00:00: 50-325-40 00 MG tablet butalbital- 2021- No TAKE 1 Uni vers acetaminoph 4-18 10-17 TABLET BY it y of en-caffeine 00:00: 00:00 MOUTH [place] (FIORICET, 00 :00 EVERY 4 MD ESGIC) 50 (FOUR) [facility] mg-325 HOURS n mg-40 mg NEEDED Cancer tablet (HEADACHE) Center . acyclovir Yes 400mg Q.[id number] Take 400 [facility] (Zovirax) 4-14 [id number] mg by Hea lth 400 MG 00:00: 3D mouth 3 tablet 00 (three) times a day. for 7 days acyclovir 2021- No TAKE 1 Unive rs (ZOVIRAX) 4-14 10-17 TABLET BY ity of 400 mg 00:00: 00:00 MOUTH [place] tablet 00 :00 THREE MD TIMES [facility] DAILY FOR n 7 DAYS Cancer Center butalbital- Yes [id number] 1{tbl} Take 1 Univers acetaminoph 3-29 tablet by ity of en-caff 00:00: mouth [place] 50-325-40 00 every 4 Medical mg tablet (four) Branch hours as needed (headache) . butalbital- Yes [id number] 1{tbl} Take 1 Univers acetaminoph 3-29 tablet by ity of en-caff 00:00: mouth [place] 50-325-40 00 every 4 Medical mg tablet (four) Branch hours as needed (headache) . butalbital- Yes [id number] 1{tbl} Take 1 Univers acetaminoph 3-29 tablet by ity of en-caff 00:00: mouth [place] 50-325-40 00 every 4 Medical mg tablet (four) Branch hours as needed (headache) . butalbital- Yes [id number] 1{tbl} Take 1 Univers acetaminoph 3-29 tablet by ity of en-caff 00:00: mouth [place] 50-325-40 00 every 4 Medical mg tablet (four) Branch hours as needed (headache) . butalbital- Yes [id number] 1{tbl} Take 1 Univers acetaminoph 3-29 tablet by ity of en-caff 00:00: mouth [place] 50-325-40 00 every 4 Medical mg tablet (four) Branch hours as needed (headache) . butalbital- Yes [id number] 1{tbl} Take 1 Univers acetaminoph 3-29 tablet by ity of en-caff 00:00: mouth [place] 50-325-40 00 every 4 Medical mg tablet (four) Branch hours as needed (headache) . metroNIDAZO Yes [id number] 500mg Take 1 Univers LE 500 mg 3-28 tablet by ity o f tablet 00:00: mouth 2 [place] 00 (two) Medical times Branch daily. lidocaine 2 Yes [id number] 1mL Apply 0.5 Univers % mucosal 3-28 Inches to ity o f jelly 00:00: area(s) as [place] 00 needed for Medical Pain Branch (scale 1-3) or Pain (scale 4-6). metroNIDAZO Yes [id number] 500mg Take 1 Univers LE 500 mg 3-28 tablet by ity o f tablet 00:00: mouth 2 [place] 00 (two) Medical times Branch daily. lidocaine 2 Yes [id number] 1mL Apply 0.5 Univers % mucosal 3-28 Inches to ity o f jelly 00:00: area(s) as [place] 00 needed for Medical Pain Branch (scale 1-3) or Pain (scale 4-6). metroNIDAZO Yes [id number] 500mg Take 1 Univers LE 500 mg 3-28 tablet by ity o f tablet 00:00: mouth 2 [place] 00 (two) Medical times Branch daily. lidocaine Yes [id number] 1mL Apply 0.5 Univers % mucosal 3-28 Inches to ity o f jelly 00:00: area(s) as [place] 00 needed for Medical Pain Branch (scale 1-3) or Pain (scale 4-6). lidocaine Yes [id number] 1mL Apply 0.5 Univers % mucosal 3-28 Inches to ity o f jelly 00:00: area(s) as [place] 00 needed for Medical Pain Branch (scale 1-3) or Pain (scale 4-6). lidocaine Yes [id number] 1mL Apply 0.5 Univers % mucosal 3-28 Inches to ity o f jelly 00:00: area(s) as [place] 00 needed for Medical Pain Branch (scale 1-3) or Pain (scale 4-6). lidocaine Yes [id number] 1mL Apply 0.5 Univers % mucosal 3-28 Inches to ity o f jelly 00:00: area(s) as [place] 00 needed for Medical Pain Branch (scale 1-3) or Pain (scale 4-6). metroNIDAZO 2021- No [id number] 500mg Take 1 Univers LE 500 mg 3-28 06-06 tablet by ity of tablet 00:00: 00:00 mouth 2 [place] 00 :00 (two) Medical times Branch daily. ciprofloxac 0 Yes [id number] 500mg Take 1 Univers in HCl 500 3-23 tablet by ity of mg tablet 00:00: mouth [place] 00 every 12 Medical (twelve) Branch hours. ciprofloxac 2021-0 Yes [id number] 500mg Take 1 Univers in HCl 500 3-23 tablet by ity of mg tablet 00:00: mouth [place] 00 every 12 Medical (twelve) Branch hours. ciprofloxac 2021-0 Yes [id number] 500mg Take 1 Univers in HCl 500 3-23 tablet by ity of mg tablet 00:00: mouth [place] 00 every 12 Medical (twelve) Branch hours. ciprofloxac 2021-0 Yes [id number] 500mg Take 1 Univers in HCl 500 3-23 tablet by ity of mg tablet 00:00: mouth [place] 00 every 12 Medical (twelve) Branch hours. ciprofloxac 2022-0 Yes [id number] 500mg Take 1 Univers in HCl 500 3-23 tablet by ity of mg tablet 00:00: mouth [place] 00 every 12 Medical (twelve) Branch hours. ciprofloxac 2022-0 Yes [id number] 500mg Take 1 Univers in HCl 500 3-23 tablet by ity of mg tablet 00:00: mouth [place] 00 every 12 Medical (twelve) Branch hours. omeprazole 2021-0 Yes [id number] 20mg Take 1 Univers 20 mg 3-11 capsule by ity of capsule 00:00: mouth [place] 00 daily. Medical Branch omeprazole 2021-0 Yes [id number] 20mg Take 1 Univers 20 mg 3-11 capsule by ity of capsule 00:00: mouth [place] 00 daily. Medical Branch omeprazole 2021-0 Yes [id number] 20mg Take 1 Univers 20 mg 3-11 capsule by ity of capsule 00:00: mouth [place] 00 daily. Medical Branch omeprazole 2021-0 Yes [id number] 20mg Take 1 Univers 20 mg 3-11 capsule by ity of capsule 00:00: mouth [place] 00 daily. Medical Branch omeprazole 2021-0 Yes [id number] 20mg Take 1 Univers 20 mg 3-11 capsule by ity of capsule 00:00: mouth [place] 00 daily. Medical Branch omeprazole 2021-0 Yes [id number] 20mg Take 1 Univers 20 mg 3-11 capsule by ity of capsule 00:00: mouth [place] 00 daily. Medical Branch QUEtiapine 2015-0 Yes TAKE 1 Metho di (SEROquel) 9-26 TABLET (50 st 50 MG 00:00: MG TOTAL) [facility] tablet 00 BY MOUTH 2 l (TWO) TIMES A DAY. Immunizations Ordered Filled Immunization Date Status Comments [facility] Immunization Name Name HPV9 2019-06-16 Completed [facility] 00:00:00 [facility] HPV9 2019-06-16 Completed [facility] 00:00:00 [facility] HPV9 2019-06-16 Completed [facility] 00:00:00 [facility] HPV9 2019-06-16 Completed [facility] 00:00:00 [facility] HPV9 2019-06-16 Completed University of 00:00:00 [facility] HPV9 2019-06-16 Completed University of 00:00:00 [facility] TDAP (ADACEL) 2019-04-19 Completed University of VACCINE 00:00:00 [facility] TDAP (ADACEL) 2019-04-19 Completed University of VACCINE 00:00:00 [facility] TDAP (ADACEL) 2019-04-19 Completed University of VACCINE 00:00:00 [facility] TDAP (ADACEL) 2019-04-19 Completed University of VACCINE 00:00:00 [facility] TDAP (ADACEL) 2019-04-19 Completed University of VACCINE 00:00:00 [facility] TDAP (ADACEL) 2019-04-19 Completed University of VACCINE 00:00:00 [facility] Tdap 2019-04-19 Completed University of 00:00:00 [facility] Influenza Virus 2017-08-31 Completed Universit y of Vaccine Quad IM 3+ 00:00:00 [facility] Influenza Virus 2017-08-31 Completed Universit y of Vaccine Quad IM 3+ 00:00:00 [facility] Influenza Virus 2017-08-31 Completed Universit y of Vaccine Quad IM 3+ 00:00:00 [facility] Influenza Virus 2017-08-31 Completed Universit y of Vaccine Quad IM 3+ 00:00:00 [facility] Influenza Virus 2017-08-31 Completed Universit y of Vaccine Quad IM 3+ 00:00:00 [facility] Influenza Virus 2017-08-31 Completed Universit y of Vaccine Quad IM 3+ 00:00:00 [facility] PPD (TB) 2017-07-28 Completed University of 00:00:00 [facility] PPD (TB) 2017-07-28 Completed University of 00:00:00 [facility] PPD (TB) 2017-07-28 Completed University of 00:00:00 [facility] PPD (TB) 2017-07-28 Completed University of 00:00:00 [facility] PPD (TB) 2017-07-28 Completed University of 00:00:00 [facility] PPD (TB) 2017-07-28 Completed University of 00:00:00 [facility] Rubella 2008-04-17 Completed University of 00:00:00 [facility] Rubella 2008-04-17 Completed University of 00:00:00 [facility] Rubella 2008-04-17 Completed University of 00:00:00 [facility] [place] [facility] Rubella 2008-04-17 Completed University of 00:00:00 [facility] [place] [facility] Rubella 2008-04-17 Completed University of 00:00:00 [facility] [place] [facility] Rubella 2008-04-17 Completed University of 00:00:00 [facility] Rubella 2008-04-17 Completed University of 00:00:00 [place] [facility] Td 2007-05-29 Completed University of 00:00:00 [facility] Td 2007-05-29 Completed University of 00:00:00 [facility] [place] [facility] Td 2007-05-29 Completed University of 00:00:00 [facility] [place] [facility] Td 2007-05-29 Completed University of 00:00:00 [facility] Td 2007-05-29 Completed University of 00:00:00 [facility] TD, NOS 2007-05-29 Completed University of 00:00:00 [facility] Td, Unspecified 2007-05-29 Completed Universit y of 00:00:00 [place] [facility] Vital Signs Vital Name Observation Time Observation Value Comments Source Systolic blood 2022-06-15 125 mm[Hg] University of pressure 17:26:00 [facility] Diastolic blood 2022-06-15 86 mm[Hg] University o f pressure 17:26:00 [facility] Heart rate 2022-06-15 87 /min University of 17:26:00 [facility] Body temperature 2022-06-15 36.61 Nicole University of 17:26:00 [facility] Respiratory rate 2022-06-15 18 /min University of 17:26:00 [facility] Body height 2022-06-15 162.6 cm University of 17:26:00 [facility] Body weight 2022-06-15 68.04 kg University of 17:26:00 [facility] BMI 2022-06-15 25.75 kg/m2 University of 17:26:00 [facility] Oxygen saturation 2022-06-15 100 /min [facility] in Arterial blood 17:26:00 [facility] Pulse oximetry [place] Systolic blood 2021-11-01 116 mm[Hg] University of pressure 21:47:00 [facility] Diastolic blood 2021-11-01 75 mm[Hg] University o f pressure 21:47:00 [facility] Heart rate 2021-11-01 87 /min University 21:47:00 [facility] Body temperature 2021-11-01 36.94 Nicole University of 21:47:00 [facility] Respiratory rate 2021-11-01 16 /min University 21:47:00 [facility] Body height 2021-11-01 162.6 cm University 21:47:00 [facility] Body weight 2021-11-01 65.318 kg University of 21:47:00 [facility] BMI 2021-11-01 24.72 kg/m2 University of 21:47:00 [facility] Oxygen saturation 2021-11-01 96 /min [facility] Arterial blood 21:47:00 [facility] Pulse oximetry [place] Systolic blood 2021-10-20 117 mm[Hg] University of pressure 15:55:00 [facility] Diastolic blood 2021-10-20 76 mm[Hg] University o f pressure 15:55:00 [facility] Heart rate 2021-10-20 69 /min [facility] 15:55:00 [facility] Body height 2021-10-20 160 cm University of 15:55:00 [facility] Body weight 2021-10-20 66.225 kg University of 15:55:00 [facility] BMI 2021-10-20 25.86 kg/m2 University of 15:55:00 [facility] Systolic blood 2021-09-16 108 mm[Hg] [facility] pressure 17:03:00 Diastolic blood 2021-09-16 66 mm[Hg] [facility] pressure 17:03:00 Heart rate 2021-09-16 62 /min [facility] 17:03:00 Body temperature 2021-09-16 36.56 Nicole [facility] 17:03:00 Body height 2021-09-16 162.6 cm [facility] 17:03:00 Body weight 2021-09-16 66.225 kg [facility] 17:03:00 BMI 2021-09-16 25.06 kg/m2 [facility] 17:03:00 Systolic blood 2022-04-19 124 mm[Hg] University of pressure 16:07:28 [facility] Diastolic blood 2022-04-19 89 mm[Hg] University o f pressure 16:07:28 [facility] Heart rate 2022-04-19 87 /min University 16:07:28 [facility] Body temperature 2022-04-19 36.11 Nicole [facility] 16:07:28 [facility] Respiratory rate 2022-04-19 16 /min University 16:07:28 [facility] Oxygen saturation 2022-04-19 100 /min [facility] in Arterial blood 16:07: Larry REAGAN by Pulse oximetry [facility] Body weight 2022-04-19 70.1 kg University 16:05:00 [facility] BMI 2022-04-19 27.38 kg/m2 University 16:05:00 [facility] Body height 2022-04-07 160 cm previous University of 03:15:00 encounter. ATILIO Juarez [facility] Procedure Date / Time Performing Clinician Source Performed US PELVIS COMPLETE WITH 2022-06-15 19:45:00 Shahnaz Horowitz [facility] TRANSVAGINAL [facility] POCT TEST 2022-06-15 18:05:00 Shahnaz Horowitz [facility] BASIC METABOLIC PANEL (NA, 2022-06-15 18:03:00 Shahnaz Horowitz [facility] K, CL, CO2, GLUCOSE, BUN, Medica l Branch CREATININE, CA) CBC WITH DIFF 2022-06-15 18:03:00 Shahnaz Horowitz [facility] URINALYSIS 2022-06-15 18:03:00 Shahnaz Horowitz [facility] CONSENT/REFUSAL FOR 2022-06-15 17:19:53 Doctor Unassigned, [facility] DIAGNOSIS AND TREATMENT [facility] Branch BASIC METABOLIC PANEL, 2022-04-08 12:29:00 Mirta Otero [facility] CALCIUM TOTAL [facility] MAGNESIUM LEVEL 2022-04-08 12:29:00 Mirta Otero [facility] PHOSPHORUS LEVEL 2022-04-08 12:29:00 Mirta Otero [facility] COMPLETE BLOOD COUNT W/ 2022-04-08 12:29:00 Mirta Otero [facility] DIFFERENTIAL [facility] GLUCOSE LEVEL 2022-04-08 12:29:00 Mirta Otero [facility] BLOOD UREA NITROGEN 2022-04-08 12:29:00 Mirta Otero [facility] ELECTROLYTE PANEL 2022-04-08 12:29:00 Mirta Otero [facility] SERUM CREATININE 2022-04-08 12:29:00 [facility] .GLOMERULAR FILTRATION 2022-04-08 12:29:00 [facility] RATE [facility] CALCIUM LEVEL TOTAL 2022-04-08 12:29:00 Mirta Otero [facility] Results CBC 2022-04-08 12:29:00 Mirta Otero [facility] MANUAL DIFFERENTIAL 2022-04-08 12:29:00 Mirta Otero [facility] POC GLUCOSE SCREEN 2022-04-08 00:39:00 Mer Armando [facility] POC GLUCOSE SCREEN 2022-04-07 17:52:00 Mer Armando [facility] BASIC METABOLIC PANEL, 2022-04-07 07:34:00 [facility] CALCIUM TOTAL [facility] MAGNESIUM LEVEL 2022-04-07 07:34:00 Mirta Otero [facility] PHOSPHORUS LEVEL 2022-04-07 07:34:00 Branden [facility] COMPLETE BLOOD COUNT W/ 2022-04-07 07:34:00 Mirta Otero [facility] DIFFERENTIAL [facility] GLUCOSE LEVEL 2022-04-07 07:34:00 Mirta Otero [facility] BLOOD UREA NITROGEN 2022-04-07 07:34:00 Mirta Otero [facility] ELECTROLYTE PANEL 2022-04-07 07:34:00 Mirta Otero [facility] SERUM CREATININE 2022-04-07 07:34:00 Mirta Otero [facility] .GLOMERULAR FILTRATION 2022-04-07 07:34:00 Mirta Otero [facility] RATE [facility] CALCIUM LEVEL TOTAL 2022-04-07 07:34:00 Mirta Otero [facility] Results CBC 2022-04-07 07:34:00 Mirta Otero [place] [facility] MANUAL DIFFERENTIAL 2022-04-07 07:34:00 Mirta Otero [facility] CT HEAD WO CONTRAST 2022-04-07 06:52:00 Mirta Otero [facility] POC GLUCOSE SCREEN 2022-04-07 05:08:00 Mer Armando [facility] PATHOLOGY SURGICAL 2022-04-06 20:40:00 Mer Armando [facility] INTERPRETATION [facility] ORBITOCRANIAL ZYGOMATIC 2022-04-06 18:07:00 Mer Armando [facility] APPROACH TO MIDDLE CRANIAL MD Mitra [facility] FOSSA Center RESECTION OR EXCISION OF 2022-04-06 18:07:00 Mer Armando [facility] NEOPLASTIC, VASCULAR OR MD [facility] INFECTIOUS LESION OF BASE Center OF ANTERIOR CRANIAL FOSSA; EXTRADURAL INTRAOPERATIVE US 2022-04-06 12:49:56 Mer Armando [facility] MRI SKULL BASE WITH AND 2022-04-04 23:15:22 Ge Kahn [facility] WITHOUT CONTRAST [facility] CT HEAD W WO CONTRAST 2022-04-04 20:14:00 Ge Kahn [facility] OCT, RETINA - OU - BOTH 2022-04-04 17:13:42 [facility] OCT, OPTIC NERVE - OU - 2022-04-04 17:13:35 [facility] EVERETT VISUAL FIELD, 2022-04-04 17:13:33 Nancy Bui Uni [facility] INTERMEDIATE - OU - BOTH MD [facility] EYES Center COVID-19 (SARS-COV-2) 2022-04-04 14:39:00 Mer Armando [facility] PCR-ASYMPTOMATIC [facility] XR CHEST 2 VW 2022-04-04 14:22:02 Femi, [facility] CONFIRM ABORH TYPE 2022-04-04 14:08:00 Nitesh To [facility] COMPLETE BLOOD COUNT W/ 2022-04-04 14:07:00 Femi [facility] DIFFERENTIAL [facility] COMPREHENSIVE METABOLIC 2022-04-04 14:07:00 [facility] PANEL [facility] MAGNESIUM LEVEL 2022-04-04 14:07:00 [facility] HEMOGLOBIN A1C 2022-04-04 14:07:00 [facility] APTT 2022-04-04 14:07:00 [facility] PROTHROMBIN TIME 2022-04-04 14:07:00 [facility] FREE THYROXINE 2022-04-04 14:07:00 [facility] TYPE AND SCREEN 2022-04-04 14:07:00 [facility] THYROID STIMULATING 2022-04-04 14:07:00 [facility] HORMONE [facility] URINALYSIS WITH 2022-04-04 14:07:00 [facility] MICROSCOPIC IF INDICATED MD Lguo [facility] HUMAN CHORIONIC 2022-04-04 14:07:00 Femi [facility] GONADOTROPIN, QUALITATIVE, MD Mitra [facility] URINE Center Results CBC 2022-04-04 14:07:00 Femi [facility] MANUAL DIFFERENTIAL 2022-04-04 14:07:00 Femi Ge Greena [facility] GLUCOSE LEVEL 2022-04-04 14:07:00 [facility] BLOOD UREA NITROGEN 2022-04-04 14:07:00 Femi Ge Greena [facility] ELECTROLYTE PANEL 2022-04-04 14:07:00 Femi [facility] SERUM CREATININE 2022-04-04 14:07:00 Femi [facility] .GLOMERULAR FILTRATION 2022-04-04 14:07:00 Femi Ge Greena [facility] CALCIUM LEVEL TOTAL 2022-04-04 14:07:[address] [facility] ALBUMIN LEVEL 2022-04-04 14:07:00 Femi [facility] ALKALINE PHOSPHATASE 2022-04-04 14:07:00 Femi Ge Greena [facility] ALANINE AMINOTRANSFERASE 2022-04-04 14:07:00 Femi Ge Greenseveriano Ramires [facility] ASPARTATE AMINOTRANSFERASE 2022-04-04 14:07:00 Femi Ge Greenseveriano [facility] TOTAL PROTEIN 2022-04-04 14:07:00 Femi [facility] FRACTIONATED BILIRUBIN 2022-04-04 14:07:00 Femi Ge Greena [facility] ABORH 2022-04-04 14:07:00 Femi [facility] ANTIBODY SCREEN 2022-04-04 14:07:00 Femi [facility] TMP INTERPRETATION 2022-04-04 14:07:00 Ge Kahn [facility] ANTIBODY SCREEN NEGATIVE MD [facility] CLOT EXPIRATION DATE 2022-04-04 14:07:00 Ge Kanh Krystin [facility] TMP CROSSMATCH 2022-04-04 14:07:00 Ge Kahn [facility] INTERPRETATION [facility] MRI ORBITS W WO CONTRAST 2021-11-26 12:45:03 [facility] BRAIN 2021-09-07 19:21:00 Swain, [facility] OSI MRI HEAD 2021-08-05 20:21:00 Swain, [facility] OSI CT BRAIN 2021-08-04 20:21:00 [facility] PATHOLOGY OUTSIDE 2021-08-03 00:00:00 Tere Stewart [facility] Plan of Care Planned Activity Planned Date Details Comments Source Future Scheduled 2022-08-01 COVID-19 Vaccination [facility] Test 11:50:17 (#1) [code = COVID-19 MD [facility] Vaccination (#1)] Center Future Scheduled 2022-05-20 COVID-19 VACCINE (#1) [facility] Test 23:21:33 [code = COVID-19 VACCINE (#1)] Future Scheduled 2022-05-20 [facility] Test 23:21:33 malignant neoplasm of cervix (procedure) [code = 921473304] Future Scheduled 2022-05-20 [facility]ZA [facility] Test 23:21:33 [code = INFLUENZA VACCINE] Encounters Start End Encounter Admission Attending Care Care Encounter Source Date/Time Date/Time Type Type Clinicians Facility Department ID 2021-09-17 Outpatient SYSTEM, MILLY ATKINS [id number] 14:34:19 PROVIDER Tremaine lopez 2021-09-16 Outpatient LISETH [facility] [id number] [place] 10:54:38 ANA [id number] [facility] 2021-09-15 Outpatient LISETH [facility] [id number] [place] 03:13:16 ANA [id number] [facility] 2021-09-14 Outpatient LISETH [facility] [id number] [place] 09:49:21 ANA [id number] [facility] 2021-07-14 Inpatient R SEBASTIAN [facility] SNS [id number] Univers 09:49:47 LANCE quintana [facility] 2021-06-30 Inpatient SEBASTIAN [facility] S[facility] [id number] Univers 14:50:38 LANCE quintana [facility] 2022-06-15 2022-06-15 Emergency [facility] [id number] Univers 11:27:00 15:24:00 SHAHNAZ quintana [facility] 2022-06-15 2022-06-15 Emergency [facility] [id number] Univers 11:27:00 15:24:00 Shahnaz TOMA [id number] i ty of AROLDOABRAZO [facility] 4.2.7.2.686 [facility] [id number] [facility] 084 Branch 2022-05-24 2022-05-24 Orders Terry, 1.2.840.1 [id number] Univers 00:00:00 00:00:00 Only Shibili [id number] ity of 3.412.2.7 [place] .3.352285 .8 [facility] 2022-05-19 2022-05-19 Telephone Molly 1.2.840.1 [id number] Univers 00:00:00 00:00:00 Krystin Lester [id number] ity of 3.412.2.7 [place] .3.974596 .8 [facility] 2022-05-04 2022-05-04 Outpatient MICHOACANO [facility] [id number] 09:36:25 23:59:00 Tremaine lopez 2022-05-04 2022-05-04 [facility] Michoacano Watkins 1.2.840.1 [id number] Univers 09:36:25 23:59:00 Encounter [id number] it y of 3.412.2.7 [place] .3.083607 MD Gee8 [facility] 2022-05-04 2022-05-04 Documentat Jose Juan 1.2.840.1 [id number] Univers 00:00:00 00:00:00 ion Lizzie K [id number] ity of 3.412.2.7 [place] .3.272199 .8 [facility] 2022-05-04 2022-05-04 Orders Manzano, 1.2.840.1 [id number] Univers 00:00:00 00:00:00 Only Lizzie K [id number] ity of 3.412.2.7 [place] .3.122537 .8 [facility] 2022-05-03 2022-05-03 Telephone Anup [facility] [id number] Univers 00:00:00 00:00:00 Aaron MULTISPEC [id number] ity of IALTY 4.2.7.2.686 [facility] [id number] [facility] AND [address] [facility] 2022-05-03 2022-05-03 Silvia Alvarado, 1.2.840.1 [id number] Univers 00:00:00 00:00:00 Only Jazzy Jimenez [id number] ity of 3.412.2.7 [place] .3.286301 MD Gee8 [facility] 2022-04-19 2022-04-19 Outpatient MICHOACANO [facility] MDA [id number] 11:00:00 23:59:00 [facility] 2022-04-19 2022-04-19 [facility] Michoacano Watkins 1.2.840.1 [id number] [facility] 11:00:00 23:59:00 Encounter [id number] it y of 3.412.2.7 [place] .3.974870 MD Gee8 [facility] 2022-04-19 2022-04-19 Outpatient MER CHAMPAGNE MDA MDA [id number] 09:55:15 11:09:18 Tremaine lopez 2022-04-19 2022-04-19 Office Mer Armando 1.2.840.1 [id number] Univers 09:30:00 11:09:18 Visit [id number] ity of 3.412.2.7 [place] .3.818762 MD Kaur [facility] 2022-04-19 2022-04-19 Documentat Hussein, 1.2.840.1 [id number] Univers 00:00:00 00:00:00 ion Karol N 06939.1.1 ity of 3.412.2.7 [place] .3.437876 MD Kaur [facility] 2022-04-19 2022-04-19 Travel 1.2.840.1 [id number] Univers 00:00:00 00:00:00 66411.1.1 350.1.13.41 ity of 3.412.2.7 [place].3.698 [place] .3.091739 084.8 MD Kaur [facility] 2022-04-15 2022-04-15 Telephone Femi, Son 1.2.840.1 [id number] Univers 00:00:00 00:00:00 Krystin 29070.1.1 ity of 3.412.2.7 [place] .3.199960 MD Kaur [facility] 2022-04-15 2022-04-15 Orders Femi, Son 1.2.840.1 [id number] Univers 00:00:00 00:00:00 Only Krystin 88911.1.1 ity of 3.412.2.7 [place] .3.562129 MD Kaur [facility] 2022-04-12 2022-04-12 Nurse Thelma, 1.2.840.1 [id number] Univers 00:00:00 00:00:00 Triage Kalina Montez 54472.1.1 i ty of 3.412.2.7 [place] .3.374460 MD Kaur [facility] 2022-04-06 2022-04-08 Inpatient MER CHAMPAGNE MDA Neurosurger [id number] 06:28:00 13:21:00 y Tremaine lopez 2022-04-06 2022-04-08 [facility] Tr Mer 1.2.840.1 [id number] Univers 06:28:00 13:21:00 Encounter 48038.1.1 it y of 3.412.2.7 [place] .3.009233 .8 [facility] 2022-04-08 2022-04-08 Orders Vignesh 1.2.840.1 [id number] Univers 00:00:00 00:00:00 Only Bettye R 31200.1.1 ity of 3.412.2.7 [place] .3.758332 .8 [facility] 2022-04-07 2022-04-07 Inpatient MER ARMANDO [facility] MDA [id number] 14:52:48 15:23:28 [facility] 2022-04-06 2022-04-06 Anesthesia Rony Quevedo 1.2.840.1 [id number] Univers 13:02:00 17:17:00 Event Igor May. 86974.1.1 ity of 3.412.2.7 [place] .3.766562 .8 [facility] 2022-04-06 2022-04-06 Surgery Mer Armando 1.2.840.1 [id number] Univers 08:05:00 13:00:00 76182.1.1 ity of 3.412.2.7 [place] .3.470065 .8 [facility] 2022-04-06 2022-04-06 Ancillary Mer Armando 1.2.840.1 [id number] Univers 06:50:00 07:00:00 Procedure 88414.1.1 it y of 3.412.2.7 [place] .3.637405 MD Gee8 [facility] 2022-04-06 2022-04-06 Outpatient MER CHAMPAGNE [facility] MDA [id number] 06:49:56 06:49:56 Tremaine jessica 2022-04-06 2022-04-06 Travel 1.2.840.1 1.2.375.207 5095 [id number] Univers 00:00:00 00:00:00 69403.1.1 350.1.13.41 ity of 3.412.2.7 2.[place].7.3.698 [place] .3.015051 084.8 .8 [facility] 2022-04-05 2022-04-05 Outpatient USMAN TO MDA [facility] [id number] 12:19:30 15:34:45 NITESH [facility] 2022-04-05 2022-04-05 POADIS To, 1.2.840.1 [id number] Univers 11:00:00 15:34:45 Appointmen Nitesh 12911.1.1 i ty of ts 3.412.2.7 [place] .3.907776 MD Gee8 [facility] 2022-04-05 2022-04-05 Anesthesia Leo 1.2.840.1 [id number] Univers 13:31:53 13:31:53 Event Yissel 82310.1.1 ity of 3.412.2.7 [place] .3.561768 MD Gee8 [facility] 2022-04-05 2022-04-05 Outpatient MER CHAMPAGNE [facility] [id number] MD 10:25:05 12:21:31 [facility] 2022-04-05 2022-04-05 Office Mer Armando 1.2.840.1 [id number] Univers 10:15:00 12:21:31 Visit 75639.1.1 ity of 3.412.2.7 [place] .3.732549 MD Gee8 [facility] 2022-04-05 2022-04-05 Documentat Loretta 1.2.840.1 [id number] Univers 00:00:00 00:00:00 ion Per 24503.1.1 ity of Abdiaziz 3.412.2.7 [place] .3.025757 .8 [facility] 2022-04-05 2022-04-05 Orders Soy, Son 1.2.840.1 [id number] Univers 00:00:00 00:00:00 Only Krystin 60305.1.1 ity of 3.412.2.7 [place] .3.052211 MD Gee8 [facility] 2022-04-05 2022-04-05 Travel 1.2.840.1 1.2.880.450 3718 [id number] Univers 00:00:00 00:00:00 48841.1.1 350.1.13.41 ity of 3.412.2.7 2.[place].7.3.698 [place] .3.778499 084.8 .8 [facility] 2022-04-04 2022-04-04 Outpatient USMAN TO MDA [facility] [id number] [place] 11:55:00 23:59:00 NITESH lopez 2022-04-04 2022-04-04 [facility] Huy, 1.2.840.1 [id number] [facility] 11:55:00 23:59:00 Encounter Nitesh 91956.1.1 it y of 3.412.2.7 [place] .3.366330 .8 [facility] 2022-04-04 2022-04-04 [facility] To, 1.2.840.1 [id number] [facility] 14:15:00 16:00:00 Procedure Nitesh 87575.1.1 it y of 3.412.2.7 [place] .3.306677 .8 [facility] 2022-04-04 2022-04-04 Outpatient USMAN TO MDA MDA [id number] 15:50:13 15:50:13 NITESH lopez 2022-04-04 2022-04-04 Outpatient MILLY BUI [facility] [id number] 09:30:00 11:54:00 NANCY lopez 2022-04-04 2022-04-04 [facility] Sachi, 1.2.840.1 [id number] [facility] 09:30:00 11:54:00 Encounter Nancy 70064.1.1 it y of 3.412.2.7 [place] .3.738342 MD [facility] 2022-04-04 2022-04-04 Outpatient USMAN TO MILLY MDA [id number] 07:15:00 09:29:00 NITESH lopez 2022-04-04 2022-04-04 [facility] Huy, 1.2.840.1 [id number] [facility] 07:15:00 09:29:00 Encounter Nitesh 18318.1.1 it y of 3.412.2.7 [place] .3.250261 MD Gee8 [facility] 2022-04-04 2022-04-04 [facility] To, 1.2.840.1 [id number] [facility] 08:45:00 09:00:00 Procedure Nitesh 07336.1.1 it y of 3.412.2.7 [place] .3.919702 MD [facility] 2022-04-04 2022-04-04 Outpatient USMAN TO [facility] [id number] 08:31:30 08:40:21 NITESH olpez 2022-04-04 2022-04-04 [facility] ToNitesh 1.2.840.1 [id number] [facility] 08:00:00 08:40:21 Support Kiki Bray 88743.1.1 ity of 3.412.2.7 [place] .3.010558 MD Kaur [facility] 2022-04-04 2022-04-04 Outpatient USMAN TO [facility] [id number] 07:51:49 07:51:49 NITESH lopez 2022-04-04 2022-04-04 Travel 1.2.840.1 1.2.765.002 [id number] [id number] [facility] 00:00:00 00:00:00 61380.1.1 350.1.13.41 ity of 3.412.2.7 [place]7.3.698 [place] .3.210226 084.8 MD Gee8 Katherine [facility] 2022-03-23 2022-03-23 Outpatient Barbara CORTES [facility] [id number] Univers 10:30:00 10:30:00 LANCEYOMAIRA quintana of [facility] 2022-03-17 2022-03-17 Outpatient MICHOACANO [facility] [id number] 15:00:00 23:59:00 Tremaine lopez 2022-03-17 2022-03-17 [facility] Michoacano Watkins 1.2.840.1 [id number] Univers 15:00:00 23:59:00 Encounter 64571.1.1 it y of 3.412.2.7 [place] .3.563565 MD Gee8 [facility] 2022-03-17 2022-03-17 Travel 1.2.840.1 1.2.009.867 [id number] [id number] Univers 00:00:00 00:00:00 13269.1.1 350.1.13.41 ity of 3.412.2.7 2.[place].7.3.698 [place] .3.681763 084.8 MD Vincent lopez [facility] 2022-03-14 2022-03-14 Outpatient USMAN RODRIGUEZ MILLY [facility] [id number] 09:56:27 11:35:50 CHANTAL lopez 2022-03-14 2022-03-14 Consult Ian 1.2.840.1 [id number] Univers 09:50:00 11:35:50 Chantal Shaver 76496.1.1 it y of 3.412.2.7 [place] .3.039750 MD Gee8 [facility] 2022-03-14 2022-03-14 Travel 1.2.840.1 1.2.774.905 6344 [id number] Univers 00:00:00 00:00:00 86775.1.1 350.1.13.41 ity of 3.412.2.7 2.2.7.3.698 [place] .3.820869 084.8 MD [facility] 2022-02-21 2022-02-21 Telephone Rell 1.2.840.1 [id number] Univers 00:00:00 00:00:00 Jenni T 38049.1.1 ity of 3.412.2.7 [place] .3.620597 MD Kaur [facility] 2022-01-11 2022-01-11 Orders Femi, Son 1.2.840.1 [id number] Univers 00:00:00 00:00:00 Only Krystin 37188.1.1 ity of 3.412.2.7 [place] .3.314337 MD Kaur [facility] 2022-01-07 2022-01-07 Telephone Zacarias, 1.2.840.1 [id number] [id number] Univers 00:00:00 00:00:00 Jenni T 85736.1.1 ity of 3.412.2.7 [place] .3.007464 MD Kaur [facility] 2022-01-04 2022-01-04 Orders Thompson, 1.2.840.1 [id number] Univers 00:00:00 00:00:00 Only Agnes 72045.1.1 ity of Schwarz 3.412.2.7 [place] .3.959258 MD Kaur [facility] 2022-01-04 2022-01-04 Orders Soy, Son 1.2.840.1 [id number] Univers 00:00:00 00:00:00 Only Krystin 56453.1.1 ity of 3.412.2.7 [place] .3.255573 MD Kaur [facility] 2022-01-04 2022-01-04 Prep for Soy, Son 1.2.840.1 [id number] [id number] Univers 00:00:00 00:00:00 Surgery Krystin 61443.1.1 ity of 3.412.2.7 [place] .3.019537 MD Kaur [facility] 2022-01-04 2022-01-04 Orders Soy, Son 1.2.840.1 [id number] Univers 00:00:00 00:00:00 Only Krystin 73363.1.1 ity of 3.412.2.7 [place] .3.251810 MD Kaur [facility] 2021-12-29 2021-12-29 Refill Femi, Son 1.2.840.1 [id number] Univers 00:00:00 00:00:00 Krystin 90629.1.1 ity of 3.412.2.7 [place] .3.861953 MD Kaur [facility] 2021-12-24 2021-12-24 Telemedic Mer Armando 1.2.840.1 [id number] [facility] 11:30:00 11:53:56 ne 86575.1.1 ity of 3.412.2.7 [place] .3.853360 MD Kaur [facility] 2021-12-24 2021-12-24 Outpatient MER CHAMPAGNE MDA, MDA [id number] NE 11:27:54 11:53:56 [facility] 2021-12-24 2021-12-24 Orders Femi, Son 1.2.840.1 [id number] Univers 00:00:00 00:00:00 Only Krystin 78514.1.1 ity of 3.412.2.7 [place] .3.928690 MD Kaur [facility] 2021-12-22 2021-12-22 Orders Femi, Son 1.2.840.1 [id number] Univers 00:00:00 00:00:00 Only Krystin 20254.1.1 ity of 3.412.2.7 [place] .3.515092 MD Kaur [facility] 2021-12-14 2021-12-14 Outpatient MER CHAMPAGNE MDA, MDA [id number] 00:00:00 00:00:00 [facility] 2021-12-14 2021-12-14 Orders Femi, Son 1.2.840.1 [id number] Univers 00:00:00 00:00:00 Only Krystin 45592.1.1 ity of 3.412.2.7 [place] .3.035139 MD Kaur [facility] 2021-12-09 2021-12-09 Outpatient USMAN TRMER [facility] [id number] 08:34:01 10:32:23 Tremaine lopez 2021-12-09 2021-12-09 Consult Mer Armando 1.2.840.1 [id number] Univers 08:30:00 10:32:23 13576.1.1 ity of 3.412.2.7 [place] .3.578832 MD Gee8 [facility] 2021-12-09 2021-12-09 Orders Soy, Son 1.2.840.1 [id number] Univers 00:00:00 00:00:00 Only Krystin 02742.1.1 ity of 3.412.2.7 [place] .3.489245 MD Kaur [facility] 2021-12-09 2021-12-09 Travel 1.2.840.1 1.2.974.994 7214 [id number] Univers 00:00:00 00:00:00 69146.1.1 350.1.13.41 ity of 3.412.2.7 2.2.7.3.698 [place] .3.642170 084.8 MD Gee8 [facility] 2021-11-26 2021-11-26 Outpatient USMAN TO MDA [facility] [id number] 11:45:00 23:59:00 NITESH lopez 2021-11-26 2021-11-26 Brittanie To 1.2.840.1 [id number] [facility] 11:45:00 23:59:00 Encounter Nitesh 69980.1.1 it y of 3.412.2.7 [place] .3.538919 MD Kaur [facility] 2021-11-26 2021-11-26 Benjamín Olson 1.2.840.1 [id number] [id number] Univers 06:15:00 08:00:00 Procedure Vidal 51621.1.1 it y of 3.412.2.7 [place] .3.655721 MD Kaur [facility] 2021-11-26 2021-11-26 Outpatient USMAN OLSON MDA [facility] [id number] 06:13:57 06:13:57 XNADERMARGE Penaloza jessica 2021-11-26 2021-11-26 Orders Michael, 1.2.840.1 [id number] Univers 00:00:00 00:00:00 Only Cheryl 42729.1.1 ity of [place] 3.412.2.7 [place] .3.578949 .8 [facility] 2021-11-26 2021-11-26 Documentat Michael, 1.2.840.1 [id number] Univers 00:00:00 00:00:00 ion Cheryl 10016.1.1 ity of [place] 3.412.2.7 [place] .3.924258 .8 [facility] 2021-11-26 2021-11-26 Travel 1.2.840.1 1.2.185.984 5972 [id number] Univers 00:00:00 00:00:00 86937.1.1 350.1.13.41 ity of 3.412.2.7 2.2.7.3.698 [place] .3.053565 084.8 .8 [facility] 2021-11-01 2021-11-01 Urgent Provider, [facility] 1.2.840.114 [id number] Univers 18:00:00 18:00:00 [facility] 350.1.13.10 ity of [place] 4.2.7.2.686 Emmanuel as JORDAN?BLEA [id number] [address] MEDICAL OFFICE BUILDING 2021-11-01 2021-11-01 Outpatient Barbara FROST [facility] [id number] Univers 18:00:00 17:06:27 JEANNIE quintana [facility] 2021-11-01 2021-11-01 Outpatient Barbara BLAKE [facility] [id number] Univers 16:30:00 16:30:00 ATTENDING ithugo [facility] 2021-10-29 2021-10-29 Telephone [facility] 1.2.840.114 [id number] Univers 00:00:00 [facility]:00[facility] 350.1.13.10 it y of [place] 4.2.7.2.686 [place] BROWN [id number] [address] OFFICE BUILDING 2021-10-20 2021-10-20 Outpatient R [facility] [id number] Univers 10:45:00 11:43:53 LANCE quintana [facility] 2021-10-20 2021-10-20 Office [facility] 1.2.840.114 [id number] Univers 10:45:00 11:43:53 Visit [facility] 350.1.13.10 it y of [place] 4.2.7.2.686 Joshua BROWN [id number] [address] OFFICE BUILDING 2021-10-20 2021-10-20 [facility] [id number] Univers 10:45:00 10:45:00 LANCE ithugo [facility] 2021-10-02 2021-10-02 Orders Musa, 1.2.840.1 [id number] Univers 00:00:00 00:00:00 Only Jincy 46160.1.1 ity of 3.412.2.7 [place] .3.649105 .8 [facility] 2021-10-02 2021-10-02 Orders Musa, 1.2.840.1 [id number] Univers 00:00:00 00:00:00 Only Jincy 67096.1.1 ity of 3.412.2.7 [place] .3.886790 MD Gee8 [facility] 2021-09-24 2021-09-24 Brittanie To 1.2.840.1 [id number] Univers 10:00:00 23:59:00 Encounter Nitesh 18677.1.1 it y of 3.412.2.7 [place] .3.904895 MD Gee8 [facility] [place] 2021-09-24 2021-09-24 Outpatient USMAN TO MDA MDA [id number] 10:00:00 10:00:00 NITESH lopez 2021-09-24 2021-09-24 Documentat Musa, 1.2.840.1 [id number] Univers 00:00:00 00:00:00 ion Jincy 67640.1.1 ity of 3.412.2.7 [place] .3.364348 MD Kaur [facility] 2021-09-24 2021-09-24 Orders Musa, 1.2.840.1 [id number] Univers 00:00:00 00:00:00 Only Jincy 71965.1.1 ity of 3.412.2.7 [place] .3.482016 MD Kaur [facility] 2021-09-24 2021-09-24 Travel 1.2.840.1 1.2.171.550 9008 [id number] Univers 00:00:00 00:00:00 25147.1.1 350.1.13.41 ity of 3.412.2.7 2.2.7.3.698 [place] .3.123579 084.8 MD Kaur [facility] 2021-09-23 2021-09-23 Outpatient EL MDA MDA [id number] MD 11:02:48 11:02:59 Tremaine lopez 2021-09-23 2021-09-23 Travel 1.2.840.1 1.2.958.222 2903 [id number] Univers 00:00:00 00:00:00 42838.1.1 350.1.13.41 ity of 3.412.2.7 2.2.7.3.698 [place] .3.483422 084.8 MD Kaur [facility] 2021-09-16 2021-09-16 Ancillary 1.2.840.1 [id number] [id number] Univers 20:30:00 20:35:00 Procedure 51653.1.1 it y of 3.412.2.7 [place] .3.178819 MD Kaur [facility] 2021-09-16 2021-09-16 Ancillary 1.2.840.1 [id number] 1091 [id number] Univers 20:25:00 20:30:00 Procedure 01524.1.1 it y of 3.412.2.7 [place] .3.035751 MD Gee8 [facility] 2021-09-16 2021-09-16 Ancillary 1.2.840.1 [id number] 1091 [id number] Univers 20:20:00 20:25:00 Procedure 12762.1.1 it y of 3.412.2.7 [place] .3.844867 .8 [facility] 2021-09-16 2021-09-16 Ancillary 1.2.840.1 [id number] 1091 [id number] Univers 20:15:00 20:20:00 Procedure 93212.1.1 it y of 3.412.2.7 [place] .3.194582 MD Gee8 [facility] 2021-09-16 2021-09-16 Ancillary 1.2.840.1 [id number] 1091 [id number] Univers 20:10:00 20:15:00 Procedure 83398.1.1 it y of 3.412.2.7 [place] .3.466688 .8 [facility] 2021-09-16 2021-09-16 Ancillary 1.2.840.1 [id number] 1091 [id number] Univers 20:05:00 20:10:00 Procedure 37993.1.1 it y of 3.412.2.7 [place] .3.785846 MD Gee8 [facility] 2021-09-16 2021-09-16 Ancillary 1.2.840.1 [id number] 1091 [id number] Univers 20:00:00 20:05:00 Procedure 90160.1.1 it y of 3.412.2.7 [place] .3.465601 MD Gee8 [facility] 2021-09-16 2021-09-16 Office REBECCA Childers 1.2.166.049 [id number] MS 10:30:00 12:32:40 Visit Ana SANCHEZ 350.1.13.58 He blanca 9.2.7.2.686 [id number] 2021-09-16 2021-09-16 Outpatient EL MDA MDA [id number] MD 08:02:39 08:02:39 Tremaine o n 2021-09-16 2021-09-16 Outpatient EL MDA MDA [id number] MD 08:02:35 08:02:35 Tremaine o n 2021-09-16 2021-09-16 Outpatient EL MDA MDA [id number] MD 08:02:31 08:02:31 Tremaine o n 2021-09-16 2021-09-16 Outpatient EL MDA MDA [id number] MD 08:02:26 08:02:26 Tremaine o n 2021-09-16 2021-09-16 Outpatient EL MDA MDA [id number] MD 08:02:22 08:02:22 Tremaine o n 2021-09-16 2021-09-16 Outpatient EL MDA MDA [id number] MD 08:02:18 08:02:18 Tremaine o n 2021-09-16 2021-09-16 Outpatient EL MDA MDA [id number] MD 08:02:15 08:02:15 Tremaine o n 2021-09-15 2021-09-15 Lab Alan Layne 1.2.840.1 [id number] Univers 00:00:00 00:00:00 Tere Mast 79969.1.1 ity [facility] 3.412.2.7 [place] .3.946047 MD .8 [facility] 2021-09-13 2021-09-13 Outpatient Barbara BARRIOS [facility] [id number] Univers 08:45:00 08:45:00 GRACIELA ity [facility] 2021-09-13 2021-09-13 [facility] 1.2.617.984 [id number] Univers 00:00:00 00:00:00 Shabana Morgan BENCH ASSEMBLER OPERATOR 350.1.13.10 ity [facility] 4.2.7.2.686 Emmanuel as MATERNAL [phone] Med ical & CHILD [address] [place] [address] 2021-09-09 2021-09-09 Outpatient Barbara NORMAN [facility] [id number] Univers 15:15:00 16:18:21 MAXINE quintana [facility] 2021-09-09 2021-09-09 [facility] 1.2.634.227 [id number] Univers 15:15:00 16:18:21 Visit Maxine CHUA 350.1.13.10 i ty of [place].2.[place] [facility] [id number] Me dicfransisca CASTREJON [address] [facility] 2021-09-08 2021-09-08 Outpatient [facility] [id number] Univers 11:00:00 11:49:29 HILARIA quintana [facility] 2021-09-08 2021-09-08 Office [facility] 1.2.840.114 [id number] Univers 11:00:00 11:49:29 Visit Hilaria Hughes [facility] 350.1.13.10 i ty of [place] 4.2.7.2.686 Emmanuel as JORDAN?BLEA [phone] Ok lula SHEIKH 044 [facility] OFFICE [facility] 2021-09-08 2021-09-08 Outpatient Barbara [facility] [id number] Univers 10:15:00 10:15:00 [facility] 2021-09-08 2021-09-08 Outpatient Barbara [facility] [id number] Univers 10:15:00 10:15:00 SIERRA quintana [facility] 2021-09-07 2021-09-07 Outpatient Barbara CASTILLO [facility] [id number] Univers 12:43:57 23:59:00 RIN quintana [facility] 2021-09-07 2021-09-07 Outpatient Barbara CASTILLO [facility] [id number] Univers 12:43:57 23:59:00 RIN quintana [facility] 2021-09-07 2021-09-07 [facility] 1.2.840.114 [id number] Univers 12:30:00 23:59:00 Encounter Rin RODRÍGUEZ 350.1.13.10 ity of [facility] 4.2.7.2.686 [place] C[place] AT [id number] Ok dicfransisca VINES [address] [place] [address] 2021-08-31 2021-08-31 Telephone Sebastian [facility] 1.2.840.114 [id number] Univers 00:00:00 00:00:00 Lance [facility] 350.1.13.10 it y of [place]7.2.[place] KEVIN [id number] [address] 2021-08-31 2021-08-31 Refill [facility] 1.2.733.818 [id number] Univers 00:00:00 00:00:00 Shabana C BENCH ASSEMBLER OPERATOR 350.1.13.10 ity of REGIONAL 4.2.7.2.686 Emmanuel as MATERNAL [phone] [facility] & CHILD [address] [place] [address] 2021-08-30 2021-08-30 Telephone Huntergricelda, [facility] 1.2.840.114 [id number] Univers 00:00:00 00:00:00 Shabana C BENCH ASSEMBLER OPERATOR 350.1.13.10 ity of REGIONAL 4.2.7.2.686 Emmanuel as MATERNAL [phone] [facility] & CHILD [address] [place] [address] 2021-08-24 2021-08-24 [facility]phone [facility] 1.2.840.114 [id number] Univers 00:00:00 00:00:00 Lance HEALTH 350.1.13.10 [place] [phone] [address] 2021-08-23 2021-08-23 Telephone [facility] 1.2.840.114 [id number] Univers 00:00:00 00:00:00 Shabana C BENCH ASSEMBLER OPERATOR 350.1.13.10 ity of REGIONAL 4.2.7.2.686 Emmanuel as MATERNAL [phone] [facility] & CHILD [address] [place] [address] 2021-08-23 2021-08-23 Telephone Fiona [facility] 1.2.840.114 [id number] Univers 00:00:00 00:00:00 Wondiful A HEALTH 350.1.13.10 ity [facility] 4.2.7.2.686 Emmanuel as JORDAN?BLEA [phone] Ok lula SHEIKH [address] [place] [address] MEDICAL OFFICE BUILDING 2021-08-23 2021-08-23 Patient Sebastian MSLUISITO 1.2.840.114 [id number] Univers 00:00:00 00:00:00 Secure Msg Lance HEALTH 350.1.13.10 [place] [phone] [address] OFFICE BUILDING 2021-08-23 2021-08-23 Telephone Sebastian [facility] 1.2.840.114 [id number] Univers 00:00:00 00:00:00 Lance HEALTH 350.1.13.10 [place] [phone] [address] OFFICE BUILDING 2021-08-23 2021-08-23 Telephone Fiona [facility] 1.2.840.114 [id number] Univers 00:00:00 00:00:00 Wondiful A HEALTH 350.1.13.10 ity of [place] 4.2.7.2.686 Emmanuel as JORDAN?BLEA [phone] Ok lula [address] OFFICE BUILDING 2021-08-21 2021-08-21 Telephone YISSEL Cortes 1.2.840.114 [id number] Univers 00:00:00 00:00:00 Lance GREGORY 350.1.13.10 it y of HOSPITAL 4.2.7.2.686 Emmanuel as [phone] [address] 2021-08-20 2021-08-20 Outpatient R [facility] [id number] Univers 13:30:00 14:19:03 SHABANA quintana o f [facility] 2021-08-20 2021-08-20 Office Juan [facility] 1.2.912.840 [id number] Univers 13:30:00 14:19:03 Visit Shabana Morgan BENCH ASSEMBLER OPERATOR 350.1.13.10 ity of [facility] 4.2.7.2.686 Emmanuel as MATERNAL [phone] Med ical & CHILD [address] [place] [address] 2021-08-20 2021-08-20 Telephone Froy [facility] 1.2.278.187 [id number] Univers 00:00:00 00:00:00 Marisela R BENCH ASSEMBLER OPERATOR 350.1.13.10 ity of REGIONAL 4.2.7.2.686 Emmanuel as MATERNAL [phone] [facility] ical & CHILD [address] [place] [address] 2021-08-18 2021-08-18 Microfilm Machine Operator Draw, [facility] 1.2.8 40.114 [id number] Univers 11:45:00 12:00:00 Visit Rin Castillo [facility] 350.1.13.10 [place] [phone] [address] OFFICE BUILDING 2021-08-18 2021-08-18 Outpatient R [facility] [id number] Univers 09:45:00 11:57:45 RIN ity [facility] 2021-08-18 2021-08-18 Office [facility] 1.2.366.130 [id number] Univers 09:45:00 11:57:45 Visit [facility] 350.1.13.10 i ty [place] [id number] [address] OFFICE BUILDING 2021-08-17 2021-08-17 Telephone [facility] 1.2.840.114 [id number] Univers 00:00:00 00:00:00 Lance HEALTH 350.1.13.10 it y of [place] [id number] [address] OFFICE BUILDING 2021-08-15 2021-08-15 Telephone MIRIAN Cortes 1.2.840.114 [id number] Univers 00:00:00 00:00:00 Lance Y HEALTH 350.1.13.10 i ty of CL[place] [id number] [address] 2021-08-15 2021-08-15 Telephone YISSEL Ramírez 1.2.840.114 [id number] Univers 00:00:00 00:00:00 Rafiq GREGORY 350.1.13.10 it y of HOSPITAL 4.2.7.2.686 Emmanuel as [phone] [facility] [address] 2021-08-13 2021-08-13 Telephone Sebastian MSLUISITO 1.2.840.114 [id number] Univers 00:00:00 00:00:00 Lance MELGAR 350.1.13.10 it y of [place] [phone] [facility] [address] OFFICE BUILDING 2021-08-09 2021-08-09 Transition JESSICA Chery 1.2.840.114 [id number] Univers 00:00:00 00:00:00 of Care Princess Delmer MORAES 350.1.13.10 i ty of [place] 4.2.7.2.[place] [id number] [facility] [address] 2021-08-03 2021-08-06 Inpatient R SEBASTIAN [facility] SNS [id number] Univers 05:41:00 11:00:00 LANCE quintana [facility] 2021-08-03 2021-08-06 Inpatient R SEBASTIAN [facility] SNS [id number] Univers 05:41:00 11:00:00 LANCE tiffanyhugo [facility] 2021-08-03 2021-08-06 [facility] ROXANNE Cortes 1.2.682.269 [id number] Univers 05:41:00 11:00:00 Encounter Lanceyomaira JENKINS 350.1.13.10 ity of [address]686 Emmanuel as [phone] [facility] [address] 2021-08-03 2021-08-03 Surgery ROXANNE Cortes 1.2.840.114 [id number] Univers 07:15:00 16:10:00 Lance GREGORY 350.1.13.10 it y of [facility] 4.2.7.2.686 Emmanuel as [id number] [facility] [address] 2021 2021 Laboratory Only, Adc Test [facility] 1.2.840. 114 [id number] Univers 09:15:00 09:30:00 Only Lance Cortes 350.1.13.10 ity of [place] 4.2.7.2.686 [facility] [id number] [address] 2021 2021 Outpatient Barbara CORTES [facility] [id number] Univers 09:15:00 09:15:00 LANCE hugo [facility] 2021-06-30 2021-06-30 Office [facility] 1.2.840.114 [id number] Univers 12:00:00 16:19:55 [facility] 350.1.13.10 it y of [place] 4.2.7.2.686 [place] [facility] [id number] [address] OFFICE BUILDING 2021-06-30 2021-06-30 Outpatient Barbara DIXONY [facility] [id number] Univers 12:00:00 16:19:55 [facility] 2021-06-30 2021-06-30 Outpatient [facility] [id number] Univers 12:00:00 12:00:00 LANCE [facility] 2021-06-16 2021-06-16 Outpatient Barbaar [facility] [id number] Univers 12:15:00 13:44:15 [facility] 2021-06-16 2021-06-16 Office [facility] 1.2.840.114 [id number] Univers 12:15:00 13:44:15 Visit [place] 23740.1.13.10 it y of [place] 4.2.7.2.[address] [facility] [phone] [address] OFFICE BUILDING 2021-06-16 2021-06-16 Outpatient Barbara CORTES [facility] [id number] Univers 12:00:00 12:00:00 LANCE hugo [facility] 2021-06-16 2021-06-16 Outpatient Barbara [facility] [id number] Univers 12:00:00 12:00:00 [facility] 2021-05-23 2021-05-23 Outpatient Barbara [facility] [id number] Univers 17:16:02 23:59:00 LANCE quintana [facility] 2021-05-23 2021-05-23 Outpatient R SEBASTIAN [facility] [id number] Univers 17:16:02 23:59:00 LANCE ithugo [facility] 2021-05-23 2021-05-23 Hospital [facility] 1.2.366.532 [id number] Univers 17:16:02 23:59:00 Encounter Lance SPECIALTY 350.1.13.10 ity of C[place].2.[place] [phone] [address] 2021-05-19 2021-05-19 Outpatient R SEBASTIAN [facility] [id number] Univers 10:15:00 13:02:00 LANCE quintana [facility] 2021-05-19 2021-05-19 Office Sebastian [facility] 1.2.840.114 [id number] Univers 10:15:00 13:02:00 Visit [facility] 350.1.13.10 it y of [place] [id number] [address] OFFICE BUILDING 2021-05-04 2021-05-04 Telephone Sebastian [facility] 1.2.840.114 [id number] Univers 00:00:00 00:00:00 [facility] 350.1.13.10 it y of [place] [phone] [address] OFFICE BUILDING 2021-04-16 2021-04-16 Outpatient R SEBASTIAN [facility] [id number] Univers 09:30:00 09:30:00 LANCE quintana [facility] 2021-04-16 2021-04-16 Outpatient R SEBASTIAN [facility] [id number] Univers 09:30:00 09:30:00 LANCE hugo [facility] 2021-04-14 2021-04-14 Office Amanda [facility] 1.2.840.114 [id number] Univers 14:19:53 15:21:30 Visit [employer] HEALTH 350.1.13.10 it y of EYE 4.2.7.2.686 [facility] [phone] [facility] [address] 2021-04-14 2021-04-14 Outpatient Barbara [facility] [id number] Univers 14:15:00 15:21:30 HUMAIR ity [facility] 2021-04-14 2021-04-14 Orders Doctor YISSEL 1.2.840.114 [id number] Univers 00:00:00 00:00:00 Only Unassigned, GREGORY 350.1.13.10 ity of [place] [facility] 4.2.7.2.686 Emmanuel [phone] [facility] [address] 2021-04-12 2021-04-12 Telephone Sebastian [facility] 1.2.840.114 [id number] Univers 00:00:00 00:00:00 [facility] 350.1.13.10 it y of [place] 4.2.7.2.[address] [facility] [id number] [facility] [address] OFFICE BUILDING 2021-04-06 2021-04-06 Outpatient Barbara [facility] [id number] Univers 09:30:00 09:30:00 HUMAIR ity [facility] 2021-04-05 2021-04-05 Outpatient Barbara [facility] [id number] Univers 07:41:04 23:59:00 RIN ity [facility] 2021-04-05 2021-04-05 [facility] 1.2.840.114 [id number] Univers 07:41:04 23:59:00 Encounter Rin CHUA 350.1.13.10 ity of [place] 4.2.7.2.686 [facility] [phone] [facility] [address] 2021-04-05 2021-04-05 Outpatient Barbara [facility] [id number] Univers 00:00:00 00:00:00 RIN ity [facility] 2021-03-31 2021-03-31 Outpatient Barbara [facility] [id number] Univers 10:15:00 10:15:00 HUMAIR ity [facility] 2021-03-30 2021-03-30 Outpatient R JONATHAN [facility] [id number] Univers 13:00:00 13:53:28 RIN quintana [facility] 2021-03-30 2021-03-30 Outpatient R JONATHAN [facility] [id number] Univers 13:00:00 13:53:28 RIN hugo [facility] 2021-03-30 2021-03-30 Office Jonathan [facility] 1.2.823.300 [id number] Univers 12:57:01 13:53:28 Visit iRn [facility] 350.1.13.10 i ty of [place].2.[place] [id number] [address] OFFICE BUILDING 2021-03-15 2021-03-15 Outpatient R EDMAR [facility] [id number] Univers 00:00:00 00:00:00 MICHAEL zarate f [facility] 2021-03-10 2021-03-10 Office Provider, Manuela [facility] 1 .2.840.114 [id number] Univers 10:27:39 11:44:01 Visit Michael Hyatt BENCH ASSEMBLER OPERATOR 350.1.13. 10 ity of REGIONAL 4.2.7.2.686 Emmanuel as MATERNAL [phone] Med ical & CHILD [address] [place] [address] 2021-03-10 2021-03-10 Outpatient R [facility] [id number] Univers 10:15:00 10:15:00 ity of [facility] 2021-03-10 2021-03-10 Orders Doctor YISSEL 1.2.840.114 [id number] Univers 00:00:00 00:00:00 Only Unassigned, GREGORY 350.1.13.10 ity of [place] [facility] 4.2.7.2.686 Emmanuel as [phone] [address] 2021-03-08 2021-03-08 [facility]phone [facility] 1.2.840.114 [id number] Univers 00:00:00 00:00:00 Shabana Morgan BENCH ASSEMBLER OPERATOR 350.1.13.10 ity of REGIONAL 4.2.7.2.686 Emmanuel as MATERNAL [phone] [facility] ical & CHILD [address] [place] [address] 2021-03-03 2021-03-03 Hospital [facility] 1.2.840.114 [id number] Univers 15:10:31 23:59:00 Encounter Ben Chua 350.1.13.10 ity of [place] 4.2.7.2.686 [facility] [id number] [address] 2021-03-03 2021-03-03 [facility] 1.2.840.114 [id number] Univers 15:00:00 15:09:00 Encounter Mitch Chua 350.1.13.10 ity of [place] 4.2.7.2.686 [facility] [id number] [address] 2021-03-03 2021-03-03 Outpatient [facility] [id number] Univers 00:00:00 00:00:00 [facility] 2021-02-26 2021-02-26 Outpatient [facility] [id number] Univers 00:00:00 00:00:00 BEN quintana [facility] 2021-02-24 2021-02-24 Office 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, Wade - Huber [facility] 1.2.840.1 14 [id number] Univers 09:27:25 09:42:25 Visit Ben Dan 350.1.13.10 ity of [place] 4.2.7.2.686 Emmanuel as Jordan?Blea [id number] Ok lula [address] Medical Office Building 2021-02-18 2021-02-18 Office [facility] 1.2.840.114 [id number] Univers 08:31:49 09:25:27 Visit [facility] 350.1.13.10 it y of [place] 4.2.7.2.686 Emmanuel as Jordan?Blea [id number] [address] Office Building 2021-02-18 2021-02-18 Office [facility] 1.2.840.114 [id number] Univers 08:31:49 09:25:27 Visit [facility] 350.1.13.10 it y of [place] 4.2.7.2.686 Emmanuel as Jordan?Blea [id number] [address] Office Building 2021-02-18 2021-02-18 Outpatient R OSIRIS [facility] [id number] Univers 07:30:00 07:30:00 HILARIA quintana [facility] 2021-02-18 2021-02-18 Orders Doctor YISSEL 1.2.840.114 [id number] Univers 00:00:00 00:00:00 Only Unassigned, GREGORY 350.1.13.10 ity of [place] [facility] 4.2.7.2.686 Emmanuel as [id number] [address] 2019-11-14 2019-11-14 Urgent Pob1, Acute [facility] 1.2.840.114 [id number] 13:31:21 14:43:12 Care [facility] 350.1.13.10 [place] 4.2.7.2.686 Professio [phone] [place] [address] Office Building [facility] 2019-11-14 2019-11-14 Urgent Pob1, Acute Care Clinic [facility] 1. 2.840.114 [id number] Univers 13:31:21 14:43:12 Care Ni, [facility] 350.1.13.10 ity of [place] 4.2.7.2.686 Emmanuel as Professio [phone] [address] Office Building [facility] 2019-11-14 2019-11-14 Outpatient R NI [facility] [id number] Univers 13:20:00 13:20:00 BEN quintana [facility] 2019-10-22 2019-10-22 Telephone [facility] 1.2.840.114 [id number] 00:00:00 00:00:00 Shabana C BENCH ASSEMBLER OPERATOR 350.1.13.10 REGIONAL 4.2.7.2.686 MATERNAL [id number] & CHILD [address] [facility] 2019-10-22 2019-10-22 Telephone [facility] 1.2.840.114 [id number] [facility] 00:00:00 00:00:00 Shabana C BENCH ASSEMBLER OPERATOR 350.1.13.10 ity of REGIONAL 4.2.7.2.686 Emmanuel as MATERNAL [phone] [facility] & CHILD [address] [place] [address] 2019-07-30 2019-07-30 Telephone [facility] 1.2.840.114 [id number] 00:00:00 00:00:00 Svetlana N BENCH ASSEMBLER OPERATOR 350.1.13.10 REGIONAL 4.2.7.2.686 MATERNAL [id number] & CHILD [address] [place] [address] 2019-07-30 2019-07-30 Telephone [facility] 1.2.840.114 [id number] [facility] 00:00:00 00:00:00 Svetlana N BENCH ASSEMBLER OPERATOR 350.1.13.10 it y of REGIONAL 4.2.7.2.686 Emmanuel as MATERNAL [id number] [facility] & CHILD [address] [place] [address] 2019-07-15 2019-07-15 Routine [facility] 1.2.187.726 [id number] 10:31:49 11:05:59 Svetlana N BENCH ASSEMBLER OPERATOR 350.1.13.10 Visit REGIONAL 4.2.7.2.686 MATERNAL [id number] & CHILD [address] [place] [address] 2019-07-15 2019-07-15 Routine [facility] 1.2.175.796 [id number] Univers 10:31:49 11:05:59 Svetlana N BENCH ASSEMBLER OPERATOR 350.1.13.10 i ty of Visit REGIONAL 4.2.7.2.686 Emmanuel as MATERNAL [id number] [facility] [address] [place] [address] 2019-07-11 2019-07-11 Telephone [facility] 1.2.840.114 [id number] 00:00:00 00:00:00 Svetlana N BENCH ASSEMBLER OPERATOR 350.1.13.10 REGIONAL 4.2.7.2.686 MATERNAL [id number] & CHILD [address] [facility] 2019-07-11 2019-07-11 Telephone [facility] 1.2.840.114 [id number] Univers 00:00:00 00:00:00 Svetlana N BENCH ASSEMBLER OPERATOR 350.1.13.10 it y of REGIONAL 4.2.7.2.686 Emmanuel as MATERNAL [id number] Med ical & CHILD [address] [place] [address] 2019-06-14 2019-06-16 [facility] YISSEL Argueta 1.2.840.114 [id number] 08:04:00 13:27:00 Encounter Chino Shin GREGORY 350.1.13.10 HOSPITAL 4.2.7.2.686 [id number] 2019-06-14 2019-06-16 [facility] KendallYISSEL montez 1.2.840.114 [id number] [facility] 08:04:00 13:27:00 Encounter Chino Kip GREGORY 350.1.13.10 ity of HOSPITAL 4.2.7.2.686 Emmanuel as [id number] [facility] [address] [place] 2019-06-14 2019-06-14 Orders Doctor YISSEL 1.2.840.114 [id number] 00:00:00 00:00:00 Only Unassigned, GREGORY 350.1.13.10 [place] [facility] 4.2.7.2.686 [id number] 009 2019-06-14 2019-06-14 Orders Doctor YISSEL 1.2.840.114 [id number] Univers 00:00:00 00:00:00 Only Unassigned, GREGORY 350.1.13.10 ity of [place] [facility] 4.2.7.2.686 Emmanuel as [id number] [address] 2019-06-12 2019-06-12 Routine [facility] 1.2.406.411 [id number] 16:01:44 16:27:38 Svetlana N BENCH ASSEMBLER OPERATOR 350.1.13.10 Visit REGIONAL 4.2.7.2.686 MATERNAL [id number] & CHILD [address] [facility] 2019-06-12 2019-06-12 Routine [facility] 1.2.434.508 [id number] Univers 16:01:44 16:27:38 Svetlana Jessica BENCH ASSEMBLER OPERATOR 350.1.13.10 i ty of Visit REGIONAL 4.2.7.2.686 Emmanuel as MATERNAL [id number] [facility] & CHILD [address] [place] [address] 2019-02-12 2019-02-12 Routine [facility] 1.2.608.186 [id number] 15:19:53 16:16:27 Svetlana Jessica BENCH ASSEMBLER OPERATOR 350.1.13.10 Visit REGIONAL 4.2.7.2.686 MATERNAL [id number] & CHILD [address] [place] [address] 2019-02-12 2019-02-12 Routine [facility] 1.2.365.729 [id number] [facility] 15:19:53 16:16:27 Svetlana Jessica BENCH ASSEMBLER OPERATOR 350.1.13.10 i ty of Visit REGIONAL 4.2.7.2.686 Emmanuel as MATERNAL [phone] [facility] & CHILD [address] [place] [address] Results Test Description Test Time Test Comments Results Result Comments Source BASIC METABOLIC PANEL (NA, K, CL, CO2, GLUCOSE, BUN, 2022-05 19:30:54 CREATININE, [place]) Test Item Value Reference Range Interpretation Comme nts NA (test code = 4355437832) 139 mmol/L 135-145 K (test code = 2773151725) 4.2 mmol/L 3.5-5.0 CL (test code = 7338028035) 105 mmol/L 98-108 CO2 TOTAL (test code = 0080261455) 28 mmol/L 23-31 AGAP (test code = 6203223925) 2-16 BUN (test code = 9573044656) 10 mg/dL 7-23 GLUCOSE (test code = 9081525862) 60 mg/dL 70-110 L CREATININE (test code = 0.75 mg/dL 0.50-1.04 8162260440) CALCIUM (test code = 1185722301) 9.1 mg/dL 8.6-10.6 eGFR (test code = 7317134276) mL/min/1.73m2 LV (test code = LV) Association of Glomerular Filtration Rate (GFR) and Staging of Kidney Disease* + +-------- + ------+| GFR (mL/min/1.73 m2) ?| With Kidney Damage ?| ?Without Kidney Damage+ +-- + +| ?>90 ?| ?Stage one ?| ? Normal ?+ +------- + -------+| ?60-89 ?| ?Stage two ?| ? Decreased GFR ? + +-------- + ------+| ?30-59 ?| ?Stage three ?| ? Stage three ? + +-------- + ------+| ?15-29 ?| ?Stage four ? | ? Stage four ?+ +------- + -------+| ?<15 (or dialysis) ? ?| ?Stage five ? | ? Stage five ?+ +------- + -------+ *Each stage assumes the associated GFR level has been in effect for at least three months. ?Stages 1 to 5, with or without kidney disease, indicate chronic kidney disease. Notes: Determination of stages one and two (with eGFR >59mL/min/1.73 m2) requires estimation of kidney damage for at least three months as defined by structural or functional abnormalities of the kidney, manifested by either:Pathological abnormalities or Markers of kidney damage (including abnormalities in the composition of the blood or urine or abnormalities in imaging tests). Lab Interpretation (test code = Abnormal 61766-4) [facility] WITH [id number] 18:54:12 Test Item Value Reference Range Interpretation Comments WBC (test code = See_Comment [Automated message] 6690-2) The system [employer] generated this result transmitted ref erence range: 4.30 - 1 1.10 10*3/?L. The re ference range was not u sed to interpret this result as normal/abnor mal. RBC (test code = See_Comment [Automated message] 789-8) The system [employer] generated this result transmitted ref erence range: 3.93 - 5 .25 10*6/?L. The re ference range was not u sed to interpret this result as normal/abnor mal. HGB (test code = 12.3 g/dL 11.6-15.0 718-7) HCT (test code = 38.3 % 35.7-45.2 4544-3) MCV (test code = 95.5 fL 80.6-95.5 787-2) MCH (test code = 30.7 pg 25.9-32.8 785-6) MCHC (test code = 32.1 g/dL 31.6-35.1 786-4) RDW-SD (test code 43.8 fL 39.0-49.9 = 87392-9) RDW-CV (test code 12.4 % 12.0-15.5 = 788-0) PLT (test code = See_Comment [Automated message] 777-3) The system [employer] generated this result transmitted ref erence range: 166 - 35 8 10*3/?L. The re ference range was not u sed to interpret this result as normal/abnor mal. MPV (test code = 12.4 fL 9.5-12.9 71787-2) NRBC/100 WBC (test See_Comment [Automat ed message] code = 8887551330) The syste m which generated this result transmitted ref erence range: 0.0 - 10 .0 /100 WBCs. The refer ence range was not u sed to interpret this result as normal/abnor mal. NRBC x10^3 (test See_Comment [Automated message] code = 9281434748) The syste m which generated this result transmitted ref erence range: 10*3/?L. The reference range was not used to interpr et this result as normal/abnormal . GRAN MAT (NEUT) % 61.3 % (test code = 770-8) IMM GRAN % (test 0.50 % code = 1460411727) LYMPH % (test code 27.8 % = 736-9) MONO % (test code 8.4 % = 5905-5) EOS % (test code = 1.3 % 713-8) BASO % (test code 0.7 % = 706-2) GRAN MAT 3.66 10*3/uL 1.88-7.09 x10^3(ANC) (test code = 5602974802) IMM GRAN x10^3 0.03 10*3/uL 0.00-0.06 (test code = 6024920166) LYMPH x10^3 (test 1.66 10*3/uL 1.32-3.29 code = 731-0) MONO x10^3 (test 0.50 10*3/uL 0.33-0.92 code = 742-7) EOS x10^3 (test 0.08 10*3/uL 0.03-0.39 code = 711-2) BASO x10^3 (test 0.04 10*3/uL 0.01-0.07 code = 704-7) [facility] [id number] 18:05:00 Test Item Value Reference Range Interpretation Comments POCT PREG (test code = 1605) negative On board controls acceptable with positive C Line (test code = 3574) POCT PREG LOT # (test code = 3575) [id number] POCT PREG TEST DATE (test 08-27-2023 code = 3576) Lab Interpretation (test code = Normal 06202-8) [facility] [id number] 22:58:59 Test Item Value Reference Range Interpretation Comments Submitted Clinical History [id number] (test code = 31982) mbGFuZzEwMzNcZnRuYm pcdWMxIHtccnRmMVxzc 8AhY6XuNrOsWVitxnCw XGRlZmxhbmcxMDMzXGZ 0bmJqXHVjMVxkZWZmMH ziHk2amNKloUveNjUhX RDiw6pdxkZOojztdMh6 i4pcQBKaKvL7rINkEWe iD6lfgrJxbSAmYPBkHR g4wL28FZComG4gyPVcT CntjmIqRcM7PXvgSYUa PzA0BCPprOIwFJUgS5n yZWQwXGdyZWVuMFxibH LzQPY4rKqze9U9aJXhi GVldHtcZjBcZnMyMiBO w3VuRGr4pUckE3XzOEG pLtN1iYQgQPBgRTxiQW RcAFZjmyA8dF11EMlaq tW4gASty1Hkh83aj955 lB5dlYTmKHA7JOZrDCS bnOSdSNFtNIC0AEAjaE RbF2xfPDFbRG5hdessK ItdBGitHBUllMU1LHKn kYOeH0UqGEYiOIxkBQP wfyr5MbVhPr2avNPryY zlNStbz9uou6nhnQMhS vo1EEAnFkIaDneiOBji m2Roo3wlKWAmfg3eHVK 9uNSybKinj5I0dQOlAG MdeGZcexGgKLHwLlE5C NxtIZ8lux35EOQzRIJ2 rf5urBAqiMzyovZwpLG hFBzvI0DnBPYke823CB GxU7HqGLKzd6G4hgUvQ aNfDZGawGI9jpR3CZYy MBe5vVAugpW5jjZqrCC iX6wpbE0fBENeCF5kgv wkt3oxRCtdPYoyRQDxf JI7pnY2COFklSDpH9Tr aZ7aZRYqLDtwJUVesoa 4OlLiQb5hoFFbrEtpOL xzYmtwYWdlXHBnbmNvb nRccGduZGVjXHBsYWlu XHBsYWluXGYwXGZzMjR jtKglsKelhL9sPrAxIf LvUJpiAE2nRDSlP3lqg UDjJWFxXHUwC2pnMxMn zK4pyDbqZCydnhFvFDK aptmsmbIjJA4gcTDajA BvZiBjZXJlYnJhbCBtZ B6pkrgrrnRxRBNjRcHe XHBsYWluXGYxXGZzMjJ cbGFuZzEwMzNcaGljaF xmMVxkYmNoXGYxXGxvY 5ikVoFpCkTiBrxaVDJ8 fQ== Diagnosis (test code = 34) s9taoDJsWJYzmOQqQBS wMlxhbnNpXHNwbHRwZ3 OgcwfkPCvkOW4eGN2ht GxhdHRveWVuXGRlZmYw w9ahm186yGYyh2dcHZL EdgimxUk6zQvbG09gc6 N7QjbqX3obYTHoYSuwX HKdVHjcaBCyILb0EXAj cGVydzEyMjQwXHBhcGV ugNH8LAUrDO2ucbawOE juSBmgPOGnyvO6LOFkz NEhS7QeMTChMC5jbmmc DRW2DDqtFAIwIYY2TcB cGAXdm8Bnebm0UiWacR FyZFxwbGFpblxmczIwX ESxHRzaIWRfPO4qYp9Z QNryRkpEKGKsZ3TZZO7 QVAAqT7qWWgpuCbHHLF VOQT3IXmnhREYewDEdU GGgXtKcUBYFOU1QMocW G00EEQbVSVBEKWYSFBf ccGFyXGNmMCBDTlMgV0 hPIEdSQURFIDFccGFyX MWpliEoJtUtXUf3WZGu cGFyXGxpMVxyaTFcbGl nMBkeUiZrUSr9o6XqIa BpbmRleCAoSCZFKTogP BMifHe0b5PbpnIgRBQk RGmWXcLiSf5nTM1dQOW 6uBTfAADcim8zqSZmuw I4VaHoUWDmrlEVbUH3B UhiJEO9FTdOHRMqQVvs ZP50CTYbqYX6zJ29mGu iWZYtZKXgPFZ0AVFmL0 UpXHBhclx+XHBhclxmc pF6HUyXTZDiN36BVJKM VClccGFyXGZzMTZccGF yXGxpMFxyaTBcbGluMF xmczIwXGNmMFxwYXJcY wKrW6KsEGYjXALKHxIT PRALDiITMIOhD08SRdK DVElWRSBUSVNTVUUsIE XBY8tQMuZMCGIiDyaSG HHjHTRHJV6UDeqJGIvy WpWCMXTFRJ4AEklcHVJ ccGFyXGJcZnMyNCBNRU 5BJodVY06XHDoJEXWMU FVBTClccGFyXGNmMCBD DzEiE3tAXKdTNBZHUAH wkAWgENElllysexK6JF mRUMQiS07STTHCHDggc GFyXGIwXGZzMjBccGFy fQ== Comment (test code = 9835) j8juhUTfRSIalFZnBBK wMlxhbnNpXHNwbHRwZ3 ZkaycpQIlmNI0qFW1pu GxhdHRveWVuXGRlZmYw z0yda883zJHrt5jdLCJ JjcfygTk2xUqfX92ay8 D6VwioU9vlFHBwHYbrU KNmDFxgdRFxIGx8QOVz cGVydzEyMjQwXHBhcGV cvAU6ANHxZY1cldmkVI ffHAswEDRputW8QRRzh AJkT9IwTKMfWR5tefwl MYI8SHgfKCLpQZV5KhF zUDZhz6Dcdzs1NkMldO AdBOgqaGLfzAkoqD8iC nMyMFxjZjFccGFyIFRo TAHcUSOkTH14RJbzfgT sPBsyr3Vitotea7Wnst bgzSCyo6XxVD1yjGAsg 7ynNe0qgyMxgdrwqwKq vDfvd4ffMQYmNTAuHUI 9TZLFVC4lwxikq80uBP wxqJucuX89gcNqgaYed IUaPKS6bZDgv8rrjtqa I35IZMaPQnUovzPbCZC tCDDfnOUvao9pQQHcOt hqz7OrtD60BJabsbUnJ KB4xW1vXMSezfGxwx9i ZCBhdCBhIHJlZmVycml bYbGgsmA0sKD3iQqcvj AvhnXwFn0gHL6kIBVbT ChyZXZpZXdlZCBhdCBN UICQIgyey7WhLLuvWi0 xPTZ9TsJiYkXnyCBhEH BhciBEZWNhbGNpZmllZ WGQVjVvr9YrdQ3bEXXw KHQ4yY7xjdNpLgRvbVQ keA4bvoQMRZFjy0tuDI QbdZ8ayA7kVDXnDeP2r nZkh1r2tF5eZMdvlZ2z aJsakT1bdVEnb7XobDl wZSBpbmZpbHRyYXRpbm upGx5sBK8gYYw0u0AcA bZyJ2Sdfjt6eICslyCc faXjyxYwsTI8x0NyJT8 fQHgqPB2vwLQffcYkYY DvO9Vsb18gYSa2UF2zE LAHDNS8MAJlAEEMMV9t MC0aLwLecKafbRNjayE xBV0rt6GiRUHmiFJhIV 3uW39ziLZ1MRNbEEVpn ER1PJLrRID8t54suWBn VXD3PJ88gKBdcOkqjeD 2tRUaHKTkFJQro0FnYF Tsw59abN9jiHwvzW14N P9cjUohcE4ov3lmZ1ds LWZpZWxkIEtpNjcgYW5 0aWdlbiAoTUlCMSkgbG NiPKgrhxqfaG1tXHeyd 2QcVM24SVOeFZfrEJep wmNwoODfERGtlS40LNJ qBTS9wRZoMVQvR64wO8 4qDANahGz0KNggqdUrk rFrQEqcVNshNIX7FD3v IDEuNSUgKDIsNTUwIHR gjYNbFM07S7haaNGqb2 KnbELiRY5eNTvelpMqP UQbCN6qESZ5pOXeF1Zq LPHpJPM4beUjFtmjPCZ mcATvRBUpIBozOQ9ldQ QrmdHnKYNmJ2Sxw36wV gKquMQqrOQzvP2qfeHU SXLyy2tcKDNlgmSxWNL dZnCepIYcV51kpqTozY o7CCN4oEGsyWLkGKFud aGrl7ZngsGiq4n1zOKe AEWai3KhpUNdLBQ9tJV oIGluZmlsdHJhdGluZy AqHES9xvCdMsHLZA9jq kpan31jOS5wBYBhnHlx HWFnuK5bqLvexP5ajKQ mBPKlWDYtUC6cSRBima A1uXH6SIGqYW3aaH9tw 3NbH0bcOF3yZD8khABu YCroLItmxX4kVJUfulr saTBcbGluMCBDVCBpbW SxxN0tZBD2oHQpZCSsn CPnYx3adHUfOVH4ODIm ZSByZWZlcnJpbmcgaW5 jbMl2cIKfn70gtMAsl2 LvyG1mlFwjNRfizPYlR Yhlh3CqU7glIOqhqqQr MTZ3rW6xNEoybtOirMO hyOOsOr7rZJHkbmJozX JqwOBhoR7lkJldkxH5x IKyACVMU3NrXDNrFemt f7crfeNmeREiy8buYKk ihC5bfEddmE3hcYAvEw WyvFPbJWGmb2MuvPvpA RGdh7CbjGxkYWPoiRPq m4fmKD4qduiwW2vzuFU uXHBhclxwYXJ9 Gross Description (test t7qbzHCwSDTpqGTOBTP code = [id number]) lBOLyEL1mpPpslHd6jH jdKNHophQ7dRKkKPiat 1yjTGW2o2evxmKLTnml HAWrPK3xWXrtGLAdCN4 nZmUwXGRlZmYxXHBhcG VydzEyMjQwXHBhcGVya FV3EUWaII8slbeiTUvd UHowUJYaecF2LWRmrFU yF3JwQPKvDX6xykkcJY X1GMZUDskyEi1maAEuq HtcZjFcZmNoYXJzZXQw HFBxdDlkKBPiFPc8iZ2 YFmjlG25yj8U3Cgy7CW OxOAFvF0GaNE6aJYNeg RLkJ34JMxmpNGI6WMVP QwpoUbjtqDgip2OixIH cXHNnIFxcaWQgNTEwMD AgXFxkYiBPVlIgIiAxM VI1GvW1LsR4TCz3SUES KPVaNoDpFGI4CBP7CBd 2SYIwLJ3eAEucsFZnPO siVzbhIJthV648DUiaK ITlL8ItF0TbAJknZmSb XGlkIDUxMDAyIFxcZGI sQ8UJWFHhJFKsMWD3CH OqQYc5ZJxmD6ULTXXgU IS2RmZ7XWW7VkA1BXt6 UHUAFc2qGHK3NBGkBsO tXZV6SOPxJHDsUPOpMe BcXHNzIDMgXFxmbCBcX B9tpUglXUAaNG7VUVJi YWluXGJcZnMyMCBBOlx wYXIgDQpccGFyZCANCl xwbGFpblxiXGZzMjBcc StmpM4doVCrR0edZzVl MlxlcGljTmVzdERvYzE gDQpcbHRycGFyXGxpbj BccmluMCANClxiXGNmM GojqwYoHHAzuTBdo0am LCByaWdodCBzcGhlbm9 dNPX1aC4sEIStpn8org LbmJKbLF2jKY2uWV5jp 0BhCoUvC9VkLXjyVuBu BZDwB8VxiwQjELJpVHP oIGFyZSAzIGlycmVndW hfmdI1wh7jhYTplLOiA OAxVSFdrlOgBzHng0Hb jMRlCPNyiXoxmj0aNRI kG8rso7DbjebeDrSwTU 6fkeGcNReoVtYqj5N5S SXic5Z6MKeoqA9ma3ar vYTauGHgh5GaPNZjRTS lu2Cla1MsRGAnu6F6XV HtAz4zQGdxMY0zXYtsA O22IMGgBXibCXVqN3Gf N8U7JMlxNCDRAOEyNSH uq3J3u1TnGLL3gZYmSA EtEgKVeVUnTsQeDF6lj R46jnIghvYAMO8pmCLe SM7KKMIbivPOPwdzPRA xDYDxvPTJu1GeNEFQFp xwcl37KHH0o4txoNMoZ UnyCrfdjRFilhW4SHfS CVPVLYeFLeCiDS4mKDd JTktCRUdJTnwyMTAxNn xnsHGDUNQ4IQjdgSagm Sb2x5tteALdv3s5FSul LJV5yLVFq4vlwQWaLNx wWfrcfGWkxgK7VXhECJ XQPNoKSaEcZN4yJWhRT ksFFcL7LvIjBRZ4GMiE K3CLtGJ9Tdh4ZMw4bSm cZmxkcnNsdCBcJzFDfX 3elBzcpP8maBIfB9gwQ nMyMCANClxzYTBcZXBp P8scNMHlBOgyNBTjL53 pu1UGl7Nqq1gneIjdy0 UqnSZvPV9esUYzOU4Bh 1csAVItxVCfFAR5PCvf r2brFGftSSI0XQXxRbB sVMQwLU5MEwCwLCHfVw UyNOPfZOn5MMi8GV2ZE nQvQCFaHHWdLJT0GWTe BIn9WHqvZC4QWBImYDC zBdH9RsukCWSuHIjmAS r0LFFgQDtispNyTOhxF jlsJBeiZ14ha9SpSURt RVEbH3fgNhDrGTLEAeh mczIyXGJcZnMyMCBCOl xwYXIgDQpccGFyZCANC lxwbGFpblxsdHJjaFxi XGZzMjBcYjBcZnMyMlx lcGljTmVzdERvYzEgDQ pcbHRycGFyXGxpbjBcc mluMFxzYjMwXGVwaWNY k6MtWDXBIinxQXBrZSw tpoVrUW6oTsi7GLZaiE dodCwgcmlnaHQgcGFyY U3xEvt0JIvyyAEbuSNj EH25GL1iHB0iDJ6sf2W zKpEhD8UnBMenBhBiMJ HwM1GlzeSzRLAtBXKeW IopSTSlr3zvL4hmNPam wyYcsDxpaiL3fu1vpQG srZSgINCzduCgg31us1 BxzOvykx2oMKOcU8dip 1RmxcqtHrLkp6T8TAJw u3F6FCBzCJ79HRklRA6 7VBpyLD96BRFwND0rAS Jro7NdUOytE9Blt7SwH JbbxUxjTUPwBCr6f3Kx QTADvbO0a1NvGFdnEGY kLgqbXBMpPVyxf0PvSC VfvLYEj5YiLU8PYMTln iANClxzYTMwXGVwaWNY j4ZbPLZFQiesia94LFS 0l8gihLDlNPbtKcvsuN ZrddJ6KQmLCBBOEUkZM eKbEG4bXSiPHofLCSwQ TnwyMTAxNnwxfFVTRVJ 6JVyibFhejUx1p8tbeR Fnj4d6MSlqZUR0kIWEl 1xmaWVsZHtcKlxmbGRp phN9FSfBXJLDPTgGYaM tIS5yIZhFKgpBLxE7Vh ZiKLB1CNbQW8WEhZO0S vd9BDy0bElqEtcuzaKm tNLtUpGMeR2ksRgitD7 cuAJoA9jrVmDsIHMBNp urPDYfSGQwQ2fwAKWkM RzhHKJoZ23hw9COn8Oh w0gciGlhj8MloEKbPA1 2WWOixLYpDOU5UC8xdR xwYXIgDQpcZnMyMiANC n0= [employer]arker Block(s) (test g3erfGVkOJQdyYBdCBH code = 9841) wMlxhbnNpXHNwbHRwZ3 YhupzgWSugXE0kGE8nw GxhdHRveWVuXGRlZmYw d9vzh174oHKks6ukKUQ VmcdvlJn2iXcmQ22yo9 A6SsdwW09bxKLaRDQ3X TIyNDBccGFwZXJoMTU4 JUFiiQVmN3vaJCQtAG5 hcmdyMTgwMFxtYXJndD T4FQWofOHfJ2OzJPIvK ZacRYSlzjn9GcPnNe9d dGVyeTcyMFxwYXJkXHB sYWluXGZzMjBccGFyIF QzuQ0khyjfCRUrw6TyP lyuN0l9DHEeBZq9BUSu o1KthA7vZGQ3tDVonGJ bg1EmaWksedThNMCdGA Q9WNdgCIYnMCghmJLyU HBhcn0= Disclaimer (test code = q9dezQPnISItgTMiRnU 9844) iJPNmGOJav6gpSTFjbH FuZzEwMzNcZnRuYmpcd GAqGYObCrSds8nwn155 pPTws1piMDIaJoE5zIC vOUXirFSkB612XWSnHX zlb1his7ZgZBBlcHWwe 0C6WRVBqndmjFu0gDre L50jy5V1QcocD2vgJYS eOJNkJ3JuFE5pDYKcXu o4VXG1OLJ1JQYjSXApT 4ZxGH1tKUNicONsDOq2 m7rliIdaXUZwEJK1w1l rUYwrblDzFO9cqn7lvV k9s8uxgkMyPFXdJOHuj AWUSSNyL9RilGbzJf3c gRm6mRxcQereDTW3Kqg 6GL7olh50vjk1hYihJQ XlszcjQvU3AWufYFWkm kriTVy2UUbuRQDghCT8 AIPyyWAwD2TcKPOpEC0 kdbu2CPW0QKjfCRFwBw Y2GMAuwHXeAWUjaAdhV Kawz719WER4OnZyLC1v E5Myd7R9wH2hdBMyFBL msOTwOuPxMZApth5umB KhWJezm4PpKFK9aqP6v UFjrRDaPULxNI86Gedp g3BePkytWSH3AWIwdfI fn0Jsp4yrPeGtbrFdT8 egT0EoZOSdMMGtLPYlF bJediRlv2Izf2TpuIIy kXd1m0sjPLVpGFRlsOw mq4xgEAQ8RYYwK2F5vC Jak3vzQRmqAEWerIW1v lV7MUOcsWVdA0GksV5f HHRjXU0vxcw0n2kdIWP 4AIrjOXArGpC7ojH7AM BcaGVhZGVyeTcyMFxmb 285XWO4BoDdSDObc2Xa H6MyrMdwM10abYfzV17 oLVEfaNzckM9dlEmslF 5cZjBcZnMyNFxxbFxwb KBtjubjYDnztuR8ZYjh eussCRJlLPibL9etSgV rQDBzbCahRCyrw3DuCY RgFOEuYbxpjfI9QUVGb 13pBNAet3SeUIOzxV2u zJCvLFfguwXqcCG4XMr hdmUgYmVlbiBkZXZlbG 1pQDRjMA6bJPPmmaMum z1fenQuICVsVEQeD0Za cmlzdGljcyBkZXRlcm1 ojjAwTHT4TEXKEL8SSL UwBOTcr53fTUHnoZmze Z9rxYKehjPoJZZur3Ko sS7jwQCOYOAwV7kpBL2 vGPfiw2HeeQVeuQFipL P9VOTce2OfPfFxfhPbd UVflAWqI0MqqTccC9lm WPHmAQFfbmWpkJLjm5A mCBQirMY0iQOyZV4VEo ACo43nBMAvZZWVwlMkM IFnwVmlxMH1urZ4wJ4f LiBJZiBhcHBsaWNhYmx hPECbf372ob7hphN2TU PbTDZagzznn6YtALBrF LHscV11AKIgGZDkwb4i wxsbeSStmzPcF6Meezp 7rP4rPPWzSLcuQCIrUS ZzMjJcbGFuZzEwMzNca GljaFxmMVxkYmNoXGYx DPkxK5pvMoYiJjLmRvx wYXJ9 [facility] HospitalPhosphorus [id number] 13:42:15 Test Item Value Reference Range Interpretation Comments Phosphorus (test code = 2777-1) 2.9 mg/dL 2.5-4.5 [facility] HospitalCalcium Nowza2024-04-10 13:42:14 Test Item Value Reference Range Interpretation Comments Calcium Lvl (test code = 23665-1) 9.0 mg/dL 8.4-10.2 [facility] HospitalElectrolyte [id number] 13:42:13 Test Item Value Reference Range Interpretation Comments Sodium Lvl (test code = 141 See_Comment [Au tomated message] The 2950-06) system which ge nerated this result tra nsmitted reference range : 136 - 145 mEq/L. The reference range was not u sed to interpret this result as normal/abnormal . Potassium Lvl (test 4.1 See_Comment [Automa shant message] The code = 2823-3) system which generated this result tra nsmitted reference range : 3.5 - 5.1 mEq/L. The reference range was not u sed to interpret this result as normal/abnormal . Chloride (test code = 105 See_Comment [Auto mated message] The ) system which ge nerated this result tra nsmitted reference range : 98 - 107 mEq/L. The refe rence range was not u sed to interpret this result as normal/abnormal . CO2 (test code = 25 See_Comment [Automated message] The 2028-01) system which ge nerated this result tra nsmitted reference range : 22 - 29 mEq/L. The refe rence range was not u sed to interpret this result as normal/abnormal . Anion Gap (test code = 11 See_Comment [Aut omated message] The 97113-6) system which [employer] nerated this result tra nsmitted reference range : 4 - 14 mEq/L. The refe rence range was not u sed to interpret this result as normal/abnormal . [facility] HospitalGlomerular Filtration Rate 2022-04-08 13:42:12 Test Item Value Reference Range Interpretation Comments eGFR (test code = 122 See_Comment The eGFRcr is calculated with 96067) the 2020 CKD-EP I creatinine equation using creatinine, patient's age, and sex for adults 18 years of age and older. Other fa ctors, especially musc le mass, may affect accuracy and need to be considered.A ccording to the Kidney Dise ase: Improving Global Outcomes (KDIGO) CKD Work Group 2012 Clinical Practice Guidel ine, chronic kidney disease (CKD) is defined as the abnormalities of kidney struc ture or function, prese nt for more than 3 months, with implications fo r health. CKD should be class ified by cause, GFR sasha gory, and albuminuria cat egory. KDIGO guidelines prov mj the following GFR c ategoriesStage Description GFR mL/min/1.73 m2G1* Normal or high >= 90G2* Mildly decrease d 60-89G3a Mildly to moder ately decreased 45-59 G3b Moderately to severely dec reased 30-44G4 Severely decrea sed 15-29G5 Kidney failure <15*In the absence of evid ence of kidney damage, neither G1 nor G2 fulfill criteri a for CKD. [Automated mess age] The system which [employer] nerated this result transmit shant reference range: >=60 mL/ min/1.73 sq. m. The referenc e range was not used to int erpret this result as gabe l/abnormal. [facility] HospitalGlucose [id number] 13:42:10 Test Item Value Reference Range Interpretation Comments Glucose Level (test code 115 mg/dL 70-99 H Eff ective 12/23/15, = 2345-7) the glucose reference inter vals have been updat ed based on Americ an Diabetes Associ ation guidelines (Standards of Medical Care in Diabetes 2016. Diabetes Care 2 016; 39: S13-S22).Fa sting blood glucose:Normal: 70-99 mg/dLImpa ired fasting glucose (increased risk for diabetes or pre-diabetes): 100-125 mg/dLDiabetes mellitus: >/=12 6 mg/dL Random bl ood glucose:Normal: 70-199 mg/dLNot e: Random glucose >100 mg/dL is associ ated with increased risk for diabetes Lab Interpretation (test Abnormal code = 08060-3) [facility] HospitalMagnesium [id number] 13:42:09 Test Item Value Reference Range Interpretation Comments Magnesium (test code = 79473-5) 2.1 mg/dL 1.6-2.6 [facility].Serum [id number] 13:42:08 Test Item Value Reference Range Interpretation Comments Creatinine (test code = 2160-0) 0.67 mg/dL 0.51-0.95 [facility] HospitalBUN2022-11-11 13:42:07 Test Item Value Reference Range Interpretation Comments BUN (test code = 3094-0) 11 mg/dL 6-23 [facility] HospitalDifferential2022-11-11 13:05:19 Test Item Value Reference Range Interpretation Comments Neutrophil % (test code = 79.4 % 42.0-66.0 H 770-8) Lymphocyte % (test code = 10.9 % 24.0-44.0 L 736-9) Monocyte % (test code = 9.0 % 2.0-7.0 H 5905-5) Eosinophil % (test code = 0.0 % 1.0-4.0 L 713-8) Basophil % (test code = 0.2 % 0.0-1.0 706-2) IGRE % (test code = 0.5 % 0.0-0.4 H IGRE % c ount 58592-5) includes Metamyelocytes, Myelocytes, and Promyelocytes. Neutrophil Abs (test code 10.46 K/uL 1.70-7.30 H = 751-8) Lymphocyte Abs (test code 1.44 K/uL 1.00-4.80 = 731-0) Monocyte Abs (test code = 1.18 K/uL 0.08-0.70 H 742-7) Eosinophil Abs (test code 0.00 K/uL 0.04-0.40 L = 711-2) Basophil Abs (test code = 0.02 K/uL 0.00-0.10 704-7) IG Abs (test code = 0.06 K/uL 0.00-0.04 H 56411-3) Lab Interpretation (test Abnormal code = 55853-4) [facility] [place].[id number] 13:05:14 Test Item Value Reference Range Interpretation Comments WBC (test code = 13.2 K/uL 4.0-11.0 H 6690-2) RBC (test code = 789-8) 3.45 See_Comment L [Au tomated message] The system [employer] generated this result transmitted ref erence range: 4.00 - 5 .50 M/uL. The refer ence range was not u sed to interpret this result as normal/abnor mal. Hgb (test code = 718-7) 10.9 See_Comment L [Au tomated message] The system [employer] generated this result transmitted ref erence range: 12.0 - 1 6.0 gm/dL. The refe rence range was not u sed to interpret this result as normal/abnor mal. Hct (test code = 32.0 % 37.0-47.0 L 4544-3) MCV (test code = 787-2) 93 fL 82-98 MCH (test code = 785-6) 31.6 pg 27.0-31.0 H MCHC (test code = 34.1 See_Comment [Automate d message] 786-4) The system [employer] generated this result transmitted ref erence range: 31.0 - 3 6.0 gm/dL. The refe rence range was not u sed to interpret this result as normal/abnor mal. RDW-SD (test code = 42.2 fL 35.1-46.3 81084-3) RDW-CV (test code = 12.5 % 12.0-15.5 788-0) Platelet count (test 142 K/uL 140-440 code = 777-3) MPV (test code = 12.2 fL 4.0-10.4 H 51089-8) INRBC (test code = 0.0 % <=0.0 The INRBC (instrument 15190-4) NRBC) value ref lects the enumeration of nucleated red b lood cells contained in a 200uL sampleof whole blood analyzed by the instrument. Thi s value maydiffer from the NRBC value reported in a m anual differential,wh ich is based on a 100 cell differential. Lab Interpretation Abnormal (test code = 75253-3) [facility] HospitalPO Glucose [id number] 00:50:25 Test Item Value Reference Interpretation Comments Range POC Glucose (test 137 mg/dL 70-99 H Capillary blood code = 5651) samples, e.g. obtained by fingerstick, ma y have inaccurate resu lts in patients with decreased perip heral blood flow. Met hod description: Al l results are adri sured using Electrochemistr y test methodology. Th e glucose in the sample mixes with the reagents on the test strip. The reac tion produces an jenna ctric current. The am ount of current prod uced is proportional to the glucose concentration i n the blood. PO Sample Type (test Capillary code = 9554) Performing Lab (test [facility] code = 84995) [facility], [address], [place] [address]; Pie Topper: Sherri Raymundo MD Lab Interpretation Abnormal (test code = 64461-0) [facility] HospitalTMP Interpretation Crossmatch 2022-04-06 20:49:38 Test Item Value Reference Range Interpretation Comments TMP XM Interp RBC units (test code = crossmatched for 7566) transfusion appear FAM SAEED MD acceptable. 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 Transcribed [place] e/Time: 04.06.2022 14:4 9 PM CSTElectronical ly Signed By: BUFFY SAEED MD - [id number] on 04.06.2022 14:4 9 PM [facility]COVID-[facility] (SARS-CoV-2) PCR- Asymptomatic [id number] 04:04:44 Test Item Value Reference Range Interpretation Comments COVID19 (SARS Not Detected Not Detected CoV-2) Result (test code = This test is a 79705-7) qualitative reverse-transcr iptase polymerase lexis n reaction (RT-PC R) developed for t he [employer] syst em and intended for qualitative det ection of SARS CoV-2 R NA in nasopharyngeal and oropharyngeal s wab specimens colle cted from any indivi duals, including those suspected of CO VID-19 by their health care provider, and t hose without symptom s or other reasons t o suspect COVID-1 9. A fact sheet for patients provided by the garment finisher ([employer]) can be reviewed at:https://www. fda.gov/ media/823245/do wnload. A fact sheet fo r Health Care providers is provided by the garment finisher ([employer]) and can be revi ewed at: https://www.fda .gov/med ia/116064/downl oad Results must be interpreted wit hin the context of all relevant clinical and la boratory findings and sh ould not form the sole b asis for a diagnosis or treatment decis ion. Positive result s do not rule out bacter ial infection or co-infection wi th other viruses. Negati ve results do not rule out SARS-CoV-2 and must be combined with c linical observations, p atient history, and/or epidemiological information. "Presumptive Po sitive" results are due to partial amplifi cation of SARS-CoV-2 t argets and indicates l ow amounts of viru s present in the specimen at or near the limit of detection. Rega rdless, individuals wit h "Presumptive Po sitive" results should be managed per institutional guidelines as individuals pos itive for SARS-CoV-2 virus, including use o f appropriate inf ection control protoco ls. Internal contro ls are included to ass ess for possible amplif ication inhibitors. If inhibition is d etected, testing is repe ated and if inhibition i s confirmed the s pecimen is resulted as "Invalid". When an "Invalid" resul t occurs, it is recommended to wait 3 days before sub mitting a new specimen for testing if clin ically indicated. This assay has been approv ed by the FDA for use only under Emergency Use Authorization ( EUA) in laboratories th at have been CLIA-certi fied to perform moderate-comple xity and high-complexity tests. The performance characteristics of this assay were veri fied by the [facility]bi[facility] at [facility], CLIA Accreditat ion #: [id number] and CAP Accreditation # : [id number]. 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 Indication (test code = 43441) [facility] HospitalConfirm [id number] 22:00:15 Test Item Value Reference Range Interpretation Comments ABORh Confirm. (test code = 882-1) O POS [facility] HospitalTMP Interpretation Antibody Screen [id number] 20:19:14 Test Item Value Reference Range Interpretation Comments TMP Auto Neg At the present ABSC Interp time, patient (test code = plasma shows no ____OSBALDO SAEED MD - 7535) evidence of RBC [id number] d by: alloantibodies. 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 (test code = 882-1) O POS [facility] HospitalClot Expiration [id number] 18:39:13 Test Item Value Reference Range Interpretation Comments T & S Expiration (test code = 04/07/2022 5318) [facility] HospitalAntibody [id number] 18:36:48 Test Item Value Reference Range Interpretation Comments ABSC. (test code = 890-4) Negative ABSC [facility] HospitalUrinalysis w/Microscopic if [id number] 16:21:32 Test Item Value Reference Range Interpretation Comments UA Color (test code = Colorless Straw-Yellow A 59997-0) UA Appear (test code Clear Clear = 71879-4) UA Glucose (test code NEG NEG mg/dL = 5792-7) UA Bili (test code = NEG NEG 5770-3) UA Ketones (test code NEG NEG mg/dL = 5797-6) UA Spec Grav (test 1.009 1.003-1.035 code = 5810-7) UA Blood (test code = NEG NEG 5794-3) UA pH (test code = 7.0 5.0-9.0 5803-2) UA Protein (test code NEG NEG mg/dL = 5804-0) UA Urobilinogen (test NEG NEG code = 5818-0) UA Nitrite (test code NEG NEG = 5802-4) UA Leuk Est (test NEG NEG code = 5799-2) UA Comment (test code See Comment No diann roscopic exam = 55063-9) performed, physiochemical findings are ne gative Lab Interpretation Abnormal (test code = 53096-4) [facility] HospitalFree [id number] 15:38:26 Test Item Value Reference Range Interpretation Comments T4 Free (test code 1.11 ng/dL 0.93-1.70 Testing P erformed at [facility] = 3024-7) Lab [facility], [address], [place] [address] [facility]TSH[facility] 15:38:25 Test Item Value Reference Range Interpretation Comments TSH (test code = 1.29 See_Comment Note: New M ethodology and 36081-5) Reference Range change effective 2017 at 1400 Testing Perform ed at [facility] Lab [facility], [address], [address], [place] [address] [Automated mess age] The system which ge nerated this result transmit shant reference range : 0.27 - 4.20 mcunit/mL. The reference range was not used to interpr et this result as gabe l/abnormal. [facility] HospitalFractionated [id number] 15:24:47 Test Item Value Reference Range Interpretation Comments Bili Total (test 0.3 mg/dL <=1.2 Indocyanine Green (ICG) code = 1974-) may cause fal sely elevated biliru bin results. Total and direct bilirubin must not be measured from s amples containing indo cyanine green. False el evation of total bilirubin can be seen in patient s with IgG concentrations above 28 g/L.Testing Per formed at [facility] Lab Ambulat ory [facility], [address] [place] [address], [address], [place] [address] Bili Direct (test <=0.3 Indocyanin e Green (ICG) code = 1967-) may cause fal sely elevated biliru bin results. Total and direct bilirubin must not be measured from s amples containing indo cyanine green. Testing Performed at [facility] Lab Ambu latory [facility], [address] [place] [address], [address], [place] [address] Bili Indirect (test See Note 0.0-0.9 Unable t o calculate code = 1970-05) Indirect Bili avila result due to some par ameters are outside rep ortable rangeTesting Pe rformed at [facility] Lab Ambulat ory [facility], [facility] [facility], [address], [place] [address] [facility] HospitalTotal [id number] 15:24:44 Test Item Value Reference Range Interpretation Comments Total Protein (test 7.4 g/dL 6.4-8.3 Testing Performed at [facility] code = 2885-2) Lab Ambulator y Care [facility], [facility], [address], [place] [address] [facility] HospitalAlkaline Stwmiqivktz2503-19-27 15:24:41 Test Item Value Reference Range Interpretation Comments Alk Phos (test code = 66 U/L 35-104 Testin g Performed at [facility] 6768-6) [facility], [address], [address], [place] [address] [facility] HospitalAlbumin [id number] 15:24:40 Test Item Value Reference Range Interpretation Comments Albumin Lvl (test code 4.9 See_Comment Testi ng Performed at B = 1751-7) [facility], [address], [address], [place] [address] [Automated mess age] The system which ge nerated this result tra nsmitted reference range : 3.5 - 5.2 gm/dL. The refe rence range was not used to interpret this result as normal/abnormal . [facility] HospitalAspartate Aminotransferase 2022-04-04 15:24:39 Test Item Value Reference Range Interpretation Comments AST (test code = 15 U/L <=32 Testing Per formed at B 1920-8) [facility], [address], [address], [place] [address] [facility] HospitalALT2022-11-07 15:24:38 Test Item Value Reference Range Interpretation Comments ALT (test code = 8 U/L <=33 Testing Per formed at B 1742-6) [facility], [address], [place] [address] [facility] HospitalHemoglobin [id number] 15:14:48 Test Item Value Reference Range Interpretation Comments A1C (test code = 5.1 % 4.3-5.6 HbA1c value s >=6.5% are 4548-4) diagnostic of d iabetes mellitus.Diagno sis should be confirmed by repeat testing.Therape utic Action suggested: >8.0 % HbA1c; Goal oftherapy: <7.0% HbA1c [facility] HospitalU [id number] 15:05:25 Test Item Value Reference Range Interpretation Comments U beta hCG Ql (test Negative Negative Very dil [place] urine code = 4181) specimens may c ause false negative result s. Suggest repeat in 48 ho urs with a first morning v oided urine or request christina titative serum beta HCG test. Testing Perform ed at[facility] [id number] ,[place] [address] [facility] HospitalaPTT2022-11-07 14:37:57 Test Item Value Reference Range Interpretation Comments aPTT (test 27.6 See_Comment Testing Perform ed code = atACB Lab Ambul atory 86577-7) Care [id number] [facility] [address] [Automated mess age] The system [employer] h generated this result transmitted ref erence range: 22.8 - 3 4.2 second(s). The reference range was not used to int erpret this result as normal/abnormal . LV (test code This lab cannot be = LV) scheduled at the following locations due to collection/proccess ing restrictions: [facility] and [facility]. [facility] HospitalProthrombin Time with DUI7300-19-21 14:37:56 Test Item Value Reference Range Interpretation Comments PT (test code 12.6 See_Comment Testing Perfor med = 5902-2) [facility] Amb[facility] Care [id number] [facility] [address] [Automated mess age] The system [employer] generated this result transmitted ref erence range: 11.9 - 1 4.1 second(s). The reference range was not used to int erpret this result as normal/abnormal . INR (test code 0.98 0.89-1.10 Testing Perfo rmed = 6301-6) [facility] Care [id number] [facility] [address] LV (test code This lab cannot be = LV) scheduled at the following locations due to collection/proccess ing restrictions: [facility] and [facility]. [facility] Outside Interpretation 2021-09-17 20:26:54 Test Item Value Reference Range Interpretation Comments Materials Received (test h9qyvWJcTYRagFPpPuJf code = 9973) UXWsNCHci9viMEHkrNZo ZzEwMzNcZnRuYmpcdWMx UOLuFoCuj7dtu211oMTe f2doFWQoVyL7pLAcBAPz sJLlJ723OZRqJKinx8lq s3VqBPPnxCBln6H6AWBK mjsvpHc5jJzoA85jo2V8 ZsrkT0tzARIsWLEeW2Bo TJ6uQFFnDdg2GAU3FWV9 HOEiOIIoK7EnRP2zRKPo nECaILi3t3hffAhhHHZu WIW2o8viKZbpioClEJ9v oi2ldXy9q5rrkvNpGZZz VNNzwDBKEKOuM4VvyFhl Zx3swLd2cXwyOkghGOK8 Xkm5XU5cyn16bhc8xAsn QZObmsxbMgR9QHjfSQVq pooyPJt0TNcjNOEyrUve MFxtYXJncjcyMFxtYXJn hCL6NXYwaPDmN7TsBFCh KRjqMOGrsgd8GoPwAn1c sDSieBenWXxgo1vcw7jf rCUpMog0WWIvEfEgBlrx EUrak0Too8ipUAGgrq3t AQU2cPMiqVhfr3S8yIDc YLHpxINtwdOrNLXbed66 yEVpqQYmzMOpfz1jkeJi qOFlhRVsOFK0vHPxniCt COWfoBIrYEOlYC6jsOBh HZHoxH1doseuVJWdWoMd lkygJGTriEihohIrDb3k gQnrQLM8PNvkC1qolU7o LfA1EFjvD3mskD2yIKh5 MVfiwKG2AVEfmC3uXL6k rawzd8bvElNbAK8tprge d8bsEiIyFO7fafi0b2tk CZU4JXmoGUOfTpC8uxQ4 NDBcaGVhZGVyeTcyMFxm a026RNB7QpCwOPSxm2Ls I5HbsLhxX98ohEogY71e XWIyhNprrZ0kzNwkvO4x BcJnBmDuEVm2tu46USd9 zdiyaHwwYZs5wiVpRLVe TJN2WVAwuXXkVCDfG9d3 vuNrXPTwUVP9XKRwyFHp HKJtU8c0beVtFRO1PSz1 cnBhZGRmdDNcdHJwYWRk YjBcdHJwYWRkZmIzXHRy aJAhiMKlnPTxcL8qkRzq TTLmcJDrmE2rSKY3LQUc cmgzMjBcdHJoZHJcbHRy qk34ZZYtygUceKKhqEpb iJSfNNQ5NMZsYOAqOPHe PVX9SZFnTiJrjyZbZHyk bGJyZHJiXGJyZHJzXGJy JQS3FOBiRfTbztZiUEgz bGJyZHJsXGJyZHJzXGJy JTN4ZZVjJhCurvXdCEtv bGJyZHJyXGJyZHJzXGJy GWX4KDLpSzDuicZbPQgg bHBhZHQxMFxjbHBhZGZ0 L2pkxWXqWELzKBgjiFHc PMBiY5ewqMPlCYoyFOVq cGFkZmwzXGNscGFkYjBc B6dnZLYoKpWtZ3VbuYv4 MDAwXGNsdmVydGFsdFxj nVXzIZP9LREbHOFkFSJd KIA0KAHwEoIuiqFjECsr bGJyZHJiXGJyZHJzXGJy VIG1NFHpYcQsbySnDKiw bGJyZHJsXGJyZHJzXGJy WEQ0TNCyZrGjpcQmKFtf bGJyZHJyXGJyZHJzXGJy UNJ4CKNzNgPhfyExOBxj bHBhZHQxMFxjbHBhZGZ0 F0euiVHzYLIlPAjfaWNa XGFkD1wsvQIiGLugRVKs cGFkZmwzXGNscGFkYjBc S6phOCLhNfPlW2SwwGx6 NjAwXGNsdmVydGFsdFxj tKXgZTN6CZWhWZWiMHUz JSC1EARnZzBozkSjNWhp bGJyZHJiXGJyZHJzXGJy HTU2LQAxLaJbkcLiYWlw bGJyZHJsXGJyZHJzXGJy OTB5JAUmKdMldoLdURnn bGJyZHJyXGJyZHJzXGJy MTQ4FRNpLdEmxiXzCVmv bHBhZHQxMFxjbHBhZGZ0 O8bseXVoNORjYJxhmASr UHSeU6cmvIXpLWckHPQl cGFkZmwzXGNscGFkYjBc D1ozVROyInVqO0LllMl5 YiTlPGWiluXowN23Nhex c4GrRGQtVPK9IKxjJElj bFxwbGFpblxmMVxmczIw QSdbzeazIHJfARqnF7yy NrLmFXKdcJrxKJwsj4Jz XGYxXGNmMlxmczIwXGIg AKZoVXBmfK8tTdzpL6Re iJ2jBPtdNnbxG8feOXEk z4EwvI0dJEzucOKbphel MVxmczIwXGxhbmcxMDMz XOdkQ4vjYsZoHCSrbEft YIawr5AjGGAsHLXeTqei ssRaDFd3ltHaSTVzzNhu zINaGWjcamLgnXsug2Yg zpKlxVcaPQNlQTe5xjYa ezfdiSf5xDLogJprGADc xShsqK6zZdImOeLkJFde bGFpblxmMVxmczIwXGxh texmSRXuYLloG9xhLcOe XCSdaZiuIMazn4JoCUPk VQEyIaabeoMyOEDgW68y bGVjdGVkXHBsYWluXGYx XGZzMjBcbGFuZzEwMzNc aGljaFxmMVxkYmNoXGYx EXbxU0ofJtCyZ7LkCOYs DrMtxWCsR5pyJ8EnnXpn YXJkXGludGJsXHNzcGFy TFQ2nFRzayNidOQcdWNd TVFuEEwfRPV2pWQewxbv nCBnnaqqALmejlO6VTXa YWluXGYxXGZzMjBcbGFu ZzEwMzNcaGljaFxmMVxk AdMlYLGvEKcfM2nwSdKm E7UqJMXcFaLiXeGVJRFq aXZlZFxwbGFpblxmMVxm czIwXGxhbmcxMDMzXGhp B0nsNkOtPMBmdFpcEQhw r0AuOIVvFHKvVjqkqgLh VOe3ngPfBPRinUwgqN78 Azzzlg74EESod5ooHRIj F6RiuMMpZJZatMVeEVdy MDhcdHJwYWRkZmwzXHRy cGFkZHIxMDhcdHJwYWRk ZnIzXHRycGFkZHQwXHRy xQSfYFL9Y9k9whFhDNNw IWe7ahMyRZQeAhMfwBXk EED5RKs1FivtofS7iJAv G3b0GvovmcJeVVtvjONm ix85JMHvzlTouINzzNsn iVPdTRP0ADUcUIKhTXXa HMG2EQNeEoPxsiJuCDnk bGJyZHJiXGJyZHJzXGJy BCE8MICcDqKbpxMsMDkj bGJyZHJsXGJyZHJzXGJy EIG0DEDpWdQafeBiVFmt bGJyZHJyXGJyZHJzXGJy IBV9GOPuKcSpozPaCNpr bHBhZHQxMFxjbHBhZGZ0 T3bfpQMcHRCsCQtxxEIo TIUeA3kzlLVbRUowYSEe cGFkZmwzXGNscGFkYjBc J9wrHMAzFsQrF3AidBv5 MDAwXGNsdmVydGFsdFxj sFJfZKF8DEJfQVNwIPKh POJ9PPMqRyWaphJuPRhq bGJyZHJiXGJyZHJzXGJy NXC7BFJzIgOmwxCiXUai bGJyZHJsXGJyZHJzXGJy JRD9OJKhCnCfzfVlQVxe bGJyZHJyXGJyZHJzXGJy KIO6COEdNbZvkaZhGNcs bHBhZHQxMFxjbHBhZGZ0 I6lmuTWiRKVoBAqnyVUi DCZxP3oewXSvFSqeCMKv cGFkZmwzXGNscGFkYjBc S4prTNMlNcFgA7PqnGo6 NjAwXGNsdmVydGFsdFxj sSUkJBJ9UGSoWLQeBIHg VTH2RSKvKgIyvgEuRLst bGJyZHJiXGJyZHJzXGJy IAF9YFLpXbWztlKnZTki bGJyZHJsXGJyZHJzXGJy UGH4PAOrNjUskpCxLKme bGJyZHJyXGJyZHJzXGJy YUR5MFHpKzGutcNlRBmg bHBhZHQxMFxjbHBhZGZ0 E6ogzAJjBKOjLXqaaHAw BZDsK3dbgAGnGXrbFUAx cGFkZmwzXGNscGFkYjBc F6caQBNgNvVcM7BjjWm9 HxVqQNKgihFvsI84Rfxd i5TpPODvMEB3ZRvhNOtg bFxwbGFpblxmMFxmczI0 XHBsYWluXGYxXGZzMjBc bGFuZzEwMzNcaGljaFxm ZSsjMqFsEBWwTZtmY4ea CxBcG9YlMVFpMnVqXM5l XwBjNBZ5OWJsFJA6VJYD NFMvQJOEJ8WTQxeiPAGR H8UnuBmzcT2tWmNjZuRf TLiwRD6bPZCqB0pldZBj AEIsNIHyR4qjZoPxsW4j aFxmMVxjZjJcZnMyMFxs dHJjaFxjZWxsXHBhcmRc pK58Brvov8YwQIVvSYW5 MFxzMFxxbFxwbGFpblxm TDdxpdK5YPHgAGljTQQo XGZzMjBcbGFuZzEwMzNc aGljaFxmMVxkYmNoXGYx BUcfZ4meUzXpA6TgJKMb HjAoRb92JuVqAwFkqErx jL9iZjFaRdCwIOjiTW5f TSPyC6kfbMOcBMZjTHZe C5niBoMlbD3hqBxhBVod ZjJcZnMyMFxsdHJjaFxj FIuvLIRjymTthX74Xgqb a6TzQBYlWLO1EYkrAUhf bFxwbGFpblxmMFxmczI0 XHBsYWluXGYxXGZzMjBc bGFuZzEwMzNcaGljaFxm TEwrZwGqZJSaECfuN7sy ReUqJ5NqWFNhMmQbOD6n ZN0pCIYtPDHfNXrpPLRr XGZzMjBcbGFuZzEwMzNc aGljaFxmMVxkYmNoXGYx DWbiZ4sgRyUwJ8EzDDFg RvVveNLxA2ktJ3AgxFkc tpNshHdcq9xrcBKlCEew k0DaraTszRneVVWdZIJy XHBsYWluXGYwXGZzMjRc rVtpjG0nBdUkMlNuXLjg KT5uMLMrP2xjqYHsDHOb UMMkR7lcQmFtkV1pfHla MVxmczIwXHBhcn0= Diagnosis (test code = [id number] 34) GDXbj3sjc8CwdACfyYBe CCvcqIJploOqxj71gID0 dH70RQ3sEWMjTyE9NHUy flE7Xxl3PSXyMJAexXMp O397z8pmn8cjaeGgkDX7 JVUjCUHxH3RxFJ1pYVJd dFRmD46uuQQwZFM5MWYz HAFmxOVnQANjCBJ9PYYl tPOaF2fhOERhCN6sokjt QFxsLOioEIZgbHN7DHKh wKTuD4JlRUXeBDcvZBAd gzs2WmCbKx8sxSEslQfn MFxwYXJkXHBsYWluXGZz OzFcO6KoMU74eDGmXBDh cRF7QJEnWTcyFYxHIvLj UNSwNaWtWOmpZ3RtKPCi NzuOD7hAKLXlXXNTSkmz X93vhDVxwCYyYF1bDXXx JW3oXYNyGHltxAQiNUXv AQhoJNJtlQu2UfWwiTzc NzIwIEEuIEJvbmUsIHJl h7WwwLxfzcpnePPfPHhi HAN3DArnxK1wWYVmTIIj B2MoUD8ZDdcSR8vJFHNg GA8AC7dAOJ3ZMUKIKwLs aCWzRMImweWiNgSnT4Zw CPXhzksudHkfIVipiW67 WbIxHkwVHvOTZJ4tptka cvtthNSby4OnXTBnn7Bf dGlvbjpccGFyXGxpMTQ0 NUottY4nYFDmMLKsE3Ga PM0FSrvYJ6dCULCnvQWa OJVMKdBOAV4aQ4INNDBj MVxwYXJccGFyIChTRUUg E35KLAMHPSliuVHpAHWm blsveHcnPYgonL42KmKz JqAbH4MdMMKmGU1nYrv2 SDxwxYIdc7ZoBYNag8Wy dGlvbjpccGFyXGxpMTQ0 CZxvnN7tYTBzWIVfP2Jn SQ1YRtrGU3eRTEPgSQ8X D4cXYJ6MGKCFZfZZXBKg XJpIT2IMNTXqqvjvEKWh uCd4AvDonUvuPiYpDLZt BOHlGCVUTfFDdwGxSX2b Qin0DIynyATcs8DzWCRb a2NaxSwdcozvwSYqGTxc PEX4MLnkoP7nUDYsNHSn D7JvKC3BMkgBW2oTYBOz LK6PG9qYBA3OHFVNFxTA OVOfRCgYS5KZZKKzrh8= Comment (test code = [id number] 9835) KTJyv5enc9XbbPStzAQf RMmhuNWkosWqxy73yRH0 dB10EP8xXJZrJlH8LHPr mvG8Ccf6QMJsJFRswRJp Y456n4nbg7mzdaVtyFS7 ZTNdKNKcR8OjEE5mIAMq zSRkR41nvGBiRKH5RRBw DVZdqZInSZEqNUQ5LOQo sQBnQ0fkUCDeYI6ugobs FCqqDUxcDVEfgGS8FNBt bOKoS7UaGBRyFGqeTSPj zth8RtJpZc4xsSSupEux MFxwYXJkXHBsYWluXGZz PwEnC3UxYSBvnwNiOPSm fwDuQNJiDDFrPDPdFF80 EPvhgsBcNKJjgNRft6or RPlidgdxkIHjtG9khX9s ISP7zECpOBrsgPApq2Mz wBDbbYKyoKFymvAkj15t UDrwAUIsdOCpPN3kO8Ib r0HnqTdvJVZ9DJ1tgeA9 pX1kQKGfn0qqUBMxoPUo qE2gyG1yNH2aSNy9f5Dg XgFrI1Wpfiy7hAFctdBj bzShedZrqOE8z2SfAGi3 ULNjBTVyGQTqaXrvpP4w m1wyniMufZUuFWPuKkJB pAW9BSHfs3uiNLWheZDd bGlmZXJhdGlvbiBpbmRl eCBvZiB+Fj79NY0jCJCq YMI5MGJfrrKhfFLftTSt cyBpZGVudGlmaWVkIChz gOLgnC9aqxGLZC7ePXQt cn0= Biomarker Block(s) (test x2xghNVcKMSzuMT3JqFe code = 9841) DHHhe6pvr8OftPXmyZDl XMizqUBbltLuib80mJW5 gY64WF7xEIPbRlV6TRTm eeU4Nih3EYRvOJUvuXOo D298i2euu6eqhaSuyAB8 UYAeDZKuA4UlTM9dLBXm sBUrT02bsORkOHX0OREd ZXUpnAQqCWRzKVF2PXRp cYKuK6uiDIAgYS3unjww KOzdJAjdPIBzhGT4CVWc mBGkT5AnVVQwOAdaHMBg qyn9UlWfKu7vzIRmvLev MFxwYXJkXHBsYWluXGZz JnZiWXUxg1M4MVomOpNz MqBlUNJ1LPHsWDNtZ2Sz IEIyXHBhcn0= Disclaimer (test code = [id number] 9844) NVVmLLAae7siCGWemFYx ZzEwMzNcZnRuYmpcdWMx UPHoGfHrr7bxz797zNSc v0hpQTZcKuV2iFQoFLDc vFUsD705SCQdCNjqy3mm s7BvCMPicSCpc4E0EPXE gsbgbFv2sLhsT60ox1J2 IepqM7qiXKErKFLrV1Yt QR6zVQWzObh1TBT3AFU8 UPAmYMAoJ8FjJW5qOHKd eRWbYUc6p0ysmAdiEZNz KIJ3n8ivRFsxqkMmZE2i zw4opTu7r3ltdlTpGHNx WZIipDIEODLiW9UkwXri Qn5wzEx8xZziHqlsCNI0 Xtw3CE3ujw80dzx5zNne OBHfkltmQxJ1SIleYPNa hrmnBNw2QUseATLvnOR7 HFSnoTWrW0AdHAYvCS5k bxk2PRQ6ALhvYDApHiH2 NDBcaGVhZGVyeTcyMFxm r303SAD1OkBdXP1gY3Hl r4D9rM4qdQHdAWSqzTBs AsQcTJGria5ptOQnDZki e4VaUCE4qpD9wUBjlPIe VYQhSR95Heksg2CgIsqj TUJ3VOLfiuBzh9Pbb5uk EfGiyxImV8nuT1DkLWQa NOQeLECaXiIttrKrh7Sm l8JjpIXqzJk6p4lfNNYk GDDtlRvzb0wfSLK9BTCn T9N7lQPii2zzHSosBTSl aWC6nqD8GGGjjVHuM9Lb yV9eNKWyVI1kiyx6m8zc RCQ9MDzoFGFvFeX9veQ5 NDBcaGVhZGVyeTcyMFxm h854VLO7JwExMWGrf0Yw S9SdxEdyT94pyKlqU99l LHIkyImxoP4giKeeiY5i ZjBcZnMyNFxxbFxwbGFp wtnvFHlnbxY9XKhttshg LEFrCKwmC6agOkNgGYVt bDwiGSgwv9IyUJZlNRKn LkyjadM6VPNOu19eTDNx n9UmGPSzpB7qmODkFOqo ceBnqBF8HDyeezTaZsPz yaOpBTTecY9pVPWyEA8a QQNfppJene0ohuArHFYv GYJsW4VhnbrvmCmwypXq URNbye3bdnUhDCJ0CYGV LA4FKZHmLWGcu12vJESa wDsxuX4kqSXjglSeAYOx z0OvaY0niDJCWELeY9np XF5vHSqft8QyfHUkcIEj uJP4PKCra2XnYdLxhoLk rECkjSYxR1DftZwzV6xa EQSeZKVsovIqzLXzy0Ua UEFurSL5aEPgUH4NHrSG b03lXCPaKJQMbzYcDBHx hOwilBK8pkN6pR4qVhGG ZiBhcHBsaWNhYmxlLCBj o007nm2bdgI7CWZtAMJw fsqwh2PaLVTiTFGczY78 KDLgGOSsmi5uwtxvxTOx wtPtM4Yhxst6xP2mUNSt YWluXGYxXGZzMjJcbGFu ZzEwMzNcaGljaFxmMVxk GrNgXTWbYWoeX8jdWdBa ZnMyMlxwYXJ9 [facility]
[2022-08-01] MEDS ORDERED: IBUPROFEN 200 MG TAB PO ONE (20:01)
[2022-08-01] MEDS ORDERED: LIDOCAINE 1% MPF 5 ML VIAL ONE (20:01)
[2022-08-01] MEDS ORDERED: IBUPROFEN 400 MG TAB ONE (20:02)
--- NOTE | 2022-08-01 20:18 | EDPHYS ---
Physician Documentation [facility] Name: Ann Kaufman Age: 26 yrs Sex: Female : 1995 Arrival Date: 08/01/2022 Time: 19:16 Bed DX3 Private MD: ED Physician Osei Curran MDM: 08/01 19:37 ED course: Searched lobby and out front for patient. Not in lobby or outside. Called pt kb and she stated that she needed to leave because her neighbor was watching her children and the person at registration said it would be a very long wait. After discussing injury and possible treatment options, pt is going to return for evaluation. . 19:44 Patient medically screened. kb 08/01 19:55 Order name: Dressing - Wound; Complete Time: 21:07 kb 08/01 19:55 Order name: Gloves, Sterile; Complete Time: 21:07 kb 08/01 19:55 Order name: Prolene, Sutures; Complete Time: 21:07 kb 08/01 19:55 Order name: Setup Suture Tray; Complete Time: 21:07 kb Administered Medications: 20:00 Drug: Ibuprofen 600 mg Route: PO; aa9 20:00 Drug: Lidocaine (1 %) 1 vials {Note: administered by Castillo CHAVEZ.} Volume: 5 ml; Route: aa9 Infiltration; Disposition Summary: 08/01/22 20:17 Discharge Ordered Location: Home kb Condition: Stable kb Diagnosis - Laceration without foreign body of right little finger without damage to nail, kb initial encounter Followup: kb - With: Emergency Department - When: As needed - Reason: Worsening of condition Followup: kb - With: Private Physician - When: 2 - 3 days - Reason: Recheck today's complaints, Continuance of care, Re-evaluation by your physician Discharge Instructions: - Discharge Summary Sheet kb - Laceration Care, Adult, Hdnu-wh-Wjuo kb Forms: - Medication Reconciliation Form kb - Thank You Letter kb - Antibiotic Education kb - Prescription Opioid Use kb Signatures: Sola Chong FNP-C FNP-Latoya Briceño, RN RN aa9
--- NOTE | 2022-08-01 21:11 | ER ---
Nurse's Notes [facility] Name: Ann Kaufman Age: 26 yrs Sex: Female : 1995 Arrival Date: 08/01/2022 Time: 19:16 Bed DX3 Private MD: Diagnosis: Laceration without foreign body of right little finger without damage to nail, initial encounter Assessment: 08/01 21:10 Reassessment: pt seen and treated by Sola Chong [employer] and discharged by her. bb ED Course: 19:16 Patient arrived in ED. rg4 19:28 Sola Chong FNP-C is PHCP. kb 19:28 Osei Curran MD is Attending Physician. kb 19:44 Sola Chong FNP-C is PHCP. kb 19:44 Osei Curran MD is Attending Physician. kb Administered Medications: 20:00 Drug: Ibuprofen 600 mg Route: PO; aa9 20:00 Drug: Lidocaine (1 %) 1 vials {Note: administered by Castillo CHAVEZ.} Volume: 5 ml; Route: aa9 Infiltration; Outcome: 20:17 Discharge ordered by . kb 21:10 Patient left the ED. bb Signatures: Sola Chong FNP-C FNP-Ckb Ballard, Brenda, RN RN bb Garcia, Rubi rg4 Latoya Massey RN RN aa9
== END 2022-08-01 21:10 | disposition home or self-care (01) ==
LOC: ER 19:14
DX: S61.216A Laceration without foreign body of right little finger without damage to nail, initial encounter (principal)
CPT/HCPCS: 99282; J2001

== ENCOUNTER 2024-03-30 18:35 | Emergency (ER) | payer OTHER, SELFPAY ==
--- OUTSIDE RECORDS SUMMARY | 2024-03-30 18:38 | XMS REPORT | Clinical Summary ---
Author Name Unknown Organization [facility] Address [address] [place] [address] Care Team Providers Care Top Icer Name Role Phone Lance Cortes MD Unavailable Gael Son MD Primary Care Provider [phone] Nancy Karimi MD Unavailable [phone] Thomas Santos MD Unavailable Callie Watkins MD Unavailable Chantal Sosa MD Unavailable [phone] Allergies Active Allergy Reactions Criticality Noted Date Comments Latex Rash Low 11/26/2013 Medications Medication Sig Dispensed Refills Start Date End Date Status senna-docusate (SENOKOT-S) 8.6 mg-50 mg tabletIndications:Deepak ign neoplasm of cerebral meninges Take 2 tablets by mouth 2 (two) times a day as needed for constipation. 30 tablet 04/08/2022 Active traMADol (ULTRAM) 50 mg tablet Take 1 tablet (50 mg) by mouth 2 (two) times a day as needed. Active HYDROcodone-acetamino phen (NORCO) 5 mg-325 mg per tabletIndications:Deepak ign neoplasm of cerebral meninges Take 1 tablet by mouth every 8 (eight) hours as needed for moderate pain or severe pain. 60 tablet 04/19/2022 Active HYDROcodone-acetamino phen (NORCO) 5 mg-325 mg per tabletIndications:Deepak ign neoplasm of cerebral meninges,Cancer associated pain,Other chronic postoperative pain Take 1 tablet by mouth as needed for severe pain. 30 tablet 05/04/2022 Active lacosamide (VIMPAT) 50 mg tabletIndications:Deepak ign neoplasm of cerebral meninges Take 2 tablets (100 mg) by mouth every 12 (twelve) hours. 120 tablet 05/04/2022 Active Active Problems Problem Noted Date Diagnosed Date Headache 04/19/2022 Blurring of visual image 04/05/2022 Meningioma 08/03/2021 H/O: manic depressive disorder 10/19/2018 Immunizations Name Administration Dates Next Due Rubella 04/17/2008 Td, Unspecified 05/29/2007 Tdap 04/19/2019 Surgical History Surgery Date Site/Laterality Comments CRANIOTOMY 08/03/2021 Right Tumor resection TUBAL LIGATION 06/15/2019 NH ORBITOCRNL APPR MID CRANIAL FOSSA TEMPORAL LOBE 04/06/2022 Head/Right Procedure: RIGHT MODIFIED ORBITOZYGOMATIC APPROACH TO SKULL BASE; Surgeon: Thomas Santos MD; Location: MAIN OR; Service: NEUROSURGERY Medical devices from this surgery are in the Medical Devices section. NH RESCJ/EXC LES BASE ANT CRANIAL FOSSA EXTRADURAL 04/06/2022 Head/Right Procedure: RESECTION OF SKULL BASE TUMOR; Surgeon: Thomas Santos MD; Location: MAIN OR; Service: NEUROSURGERY Medical devices from this surgery are in the Medical Devices section. Medical History Medical History Date Comments Anemia Seizure Family History Medical History Relation Name Comments Amblyopia Neg Hx Glaucoma Neg Hx Macular degeneration Neg Hx Retinal detachment Neg Hx Strabismus Neg Hx Social History Tobacco Use Types Packs/Day Years Used Date Smoking Tobacco: Every Day Cigarettes Smokeless Tobacco: Never Tobacco Cessation:Ready to Q uit: Not Asked; Counseling Given: Not Answered Alcohol Use Standard Drinks/Week Comments Not Currently 0 (1 standard drink = 0.6 oz pur e alcohol) Sex and Gender Information Value Date Recorded Sex Assigned at Not on file Gender Identity Not on file Sexual Orientation Not on file Job Start Date Occupation Industry Not on file Not on file Not on file Obstetrics History Plan of Treatment Health Maintenance Due Date Last Done Comments Pneumococcal Vaccine: Pediat rics (0 to 5 Years) and At-Risk Patients (6 to 64 Years) (1 of 2 - PCV) 08/03/1999 COVID-19 Vaccine (1 - 2023-25 season) 2024 Influenza Vaccine (#1) 2024 Medical Devices Implanted Type Area Lead Technical Writer Device Identifier Shelf Expiration Date Model / Serial / Lot Ti Matrixneuro Screw Self-Dril Ling 4mm - [id number] Implanted:Qty: 11 on 04/06/2022 by Thomas Santos MD at [facility] Implant Cranial [facility] 04/06/2022 04.503.104 .01 / / Ti Matrixneuro Contour Mesh 10 0mm Deepti/0.6mm Rigid - [id number] Implanted:Qty: 1 on 04/06/2022 by Thomas Santos MD at [facility] Implant Cranial [employer] [facility] 04/06/2022.503.127 / / Duragen Plus 4in X 5in - [id number] Implanted:Qty: 1 on 04/06/2022 by Thomas Santos MD at [facility] Skin/Tissue Cranial [employer] 07/26/2024 [id number] / / [id number] Tisseel 10ml - [id number] Implanted:Qty: 1 on 04/06/2022 by Thomas Santos MD at [facility] Skin/Tissue Cranial [employer] 04/07/2022 [id number] / [id number] / [id number] Advance Directives * Full Code (Latest Code Status on File) Date Activated Date Inactivated Comments 04/06/2022 8:20 PM 04/08/2022 3:26 PM Care Teams Top Icer Relationship Specialty Start Date End Date Lance Cortes MD [address] [facility] [id number] [place] [address] PCP - External Referring Neurosurgery 09/23/21 Gael Son MD [address] [place] [address] [email or web address] PCP - General Radiation Oncology 09/23/21 Nancy Karimi MD [address] [place] [phone] [email or web address] Consulting Physician Ophthalmology 04/04/22 Thomas Santos MD [address] [place] [phone] [email or web address] Consulting Physician Neurosurgery 12/09/21 Callie Watkins MD [address] [place] [phone] [email or web address] Consulting Physician Pain Management 03/17/22 Chantal Sosa MD [address] [place] [phone] [email or web address] Consulting Physician Neuro-Oncology 03/14/22
[2024-03-30] MEDS ORDERED: ACETAMINOPHEN 325 MG TABLET ONE (18:49)
[2024-03-30] MEDS ORDERED: ONDANSETRON 4 MG (ODT) TAB ONE (18:50)
[2024-03-30] MEDS ORDERED: OXYMETAZOLINE HCL 0.05% 15ML NAS ONE (18:50)
--- NOTE | 2024-03-30 20:03 | RAD REPORT ---
EXAM: CT brain without contrast HISTORY: HEADACHE COMPARISON: None TECHNIQUE: Multiple contiguous axial images were obtained and a CT of the brain without contrast. Sag ittal and coronal reformats were performed. One or more of the following dose reduction techniques were used: Automated exposure control, adjust ment of the mA and/or kV according to patient size, and/or iterative reconstruction. FINDINGS: No evidence of hydrocephalus, intracranial hemorrhage, or extra-axial fluid collection. Postsurgical changes are seen in the region of the right temporal lobe. Assessment in this region is limited by bone artifact. A persistent soft tissue noted in the region of surgical defect. No evidence of midline shift or areas of brain edema. Postsurgical changes right frontotemporal calvarium. The visualized paranasal sinuses and mastoid air cells are essentially clear. IMPRESSION: No evidence of acute intracranial abnormality. Postsurgical changes involving the right lateral orbit and right temporal lobe. Assessment is limited on CT study.
[2024-03-30] MEDS ORDERED: KETOROLAC 30 MG/ML INJ ONE (20:47)
[2024-03-30] MEDS ORDERED: DIPHENHYDRAMINE 50 MG/ML VIAL ONE ×2 (20:48→22:20)
[2024-03-30] MEDS ORDERED: METOCLOPRAMIDE 10 MG/2mL INJ ONE (20:48)
--- NOTE | 2024-03-30 21:07 | EDPHYS ---
Physician Documentation [facility] Name: Ann Kaufman Age: 28 yrs Sex: Female : 1995 Arrival Date: 03/30/2024 Time: 18:35 Bed 19 Private MD: ED Physician Tod Queen HPI: 03/30 18:40 This 28 yrs old Female presents to ER via EMS with complaints of Nose Bleed. cp 18:40 The patient presents with a nose bleed, causative factors include: use of cocaine. cp Onset: The symptoms/episode began/occurred 3 day(s) ago. 18:40 Associated signs and symptoms: Pertinent positives: nasal congestion with difficulty cp breathing through nose, swelling, drainage and intermittent nose bleeding. 18:40 Severity of symptoms: in the emergency department the symptoms are unchanged despite cp EMS interventions, patient in custody of law enforcement. FORESTRY AIDE: 18:41 LMP N/A - control method, Not me1 Historical: - Allergies: 18:41 No Known Drug Allergies; me1 - PMHx: 18:41 Anxiety; me1 - PSHx: 18:41 tubal ligation; me1 - Immunization history:: Adult Immunizations. - Infectious Disease History:: Denies. - Social history:: Smoking status: Patient reports the use of cigarette tobacco products, smokes one pack cigarettes per day. ROS: 18:45 Constitutional: Negative for body aches, chills, fever, poor PO intake, cp 18:45 ENT: Positive for nasal discharge, nose bleed, nasal swelling, cp 18:45 Respiratory: Negative for cough, shortness of breath, wheezing, cp 18:45 Abdomen/GI: Positive for nausea, Negative for abdominal pain, vomiting, diarrhea, constipation, 18:45 Skin: Negative for cellulitis, rash, 18:45 Neuro: Positive for headache, Negative for altered mental status, dizziness, weakness, 18:45 All other systems are negative, Exam: 18:50 Constitutional: The patient appears in no acute distress, alert, awake, cp non-diaphoretic, non-toxic, well developed, well nourished, uncomfortable, 18:50 Head/face: Noted is swelling, that is mild, of the nose, tenderness, cp 18:50 Eyes: Periorbital structures: appear normal, Pupils: equal, round, and reactive to light and accomodation, Extraocular movements: intact throughout, Conjunctiva: normal, no exudate, no injection, Sclera: no appreciated abnormality, Lids and lashes: appear normal, bilaterally, 18:50 ENT: External ear(s): are unremarkable, Ear canal(s): are normal, clear, TM's: dullness, bilaterally, Nose: Nasal septum: deviates to the right, no septal hematoma appreciated, Nasal mucosa: edematous, bleeding, and is minimal, nasal drainage, and is seen coming from both nares, that is blood tinged, that is clear, that is thick, Mouth: Lips: moist, Oral mucosa: pink and intact, moist, Posterior pharynx: Airway: no evidence of obstruction, patent, Tonsils: are normal in appearance, swelling, is not appreciated, erythema, is not appreciated, exudate, is not appreciated, Voice: is normal, 18:50 Neck: ROM/movement: is normal, is supple, without pain, no range of motions limitations, no meningismus, no nuchal rigidity, 18:50 Chest/axilla: Inspection: normal, Palpation: is normal, no crepitus, no tenderness, 18:50 Cardiovascular: Rate: normal, Rhythm: regular, 18:50 Respiratory: the patient does not display signs of respiratory distress, Respirations: normal, no use of accessory muscles, no retractions, labored breathing, is not present, Breath sounds: are clear throughout, no decreased breath sounds, no stridor, no wheezing, 18:50 Abdomen/GI: Exam negative for discomfort, distension, guarding, Inspection: abdomen appears normal, 18:50 Neuro: Orientation: to person, place \T\ time. Mentation: is normal, Motor: moves all fours, strength is normal, Sensation: is normal, Gait: is steady, at a normal pace, without difficulty, Vital Signs: 18:37 BP 120 / 74; Pulse 99; Resp 20; Temp 98.4; Pulse Ox 100% ; Weight 58.97 kg; Height 5 me1 ft. 5 in. ; 19:15 BP 124 / 78; Pulse 88; Resp 18 S; Temp 98.7(TE); Pulse Ox 98% on R/A; Pain 10/10; br2 20:00 BP 138 / 90; Pulse 81; Resp 19 S; Pulse Ox 100% on R/A; br2 21:00 BP 139 / 74; Pulse 72; Resp 16; Pulse Ox 99% ; br2 22:00 BP 127 / 83; Pulse 64; Resp 18; Pulse Ox 98% ; br2 23:00 BP 120 / 80; Pulse 60; Resp 20 S; Temp 97.2(TE); Pulse Ox 99% on R/A; br2 18:37 Body Mass Index 21.63 (58.97 kg, 165.1 cm) me1 19:15 Pain Scale: Adult br2 MDM: 18:41 Medical Screening Exam initiated 03/31 00:00 Differential diagnosis: trauma, sinusitis, cellulitis, septal hematoma. 00:28 Data reviewed: vital signs, nurses notes, lab test result(s), radiologic studies, CT cp scan, I have discussed the patient's presentation/case with the attending Emergency Department Physician; and as a result, I will discharge patient. 00:29 I considered the following discharge prescriptions or medication management in the emergency department Medications were administered in the Emergency Department. See JUL. 00:29 Counseling: I had a detailed discussion with the patient and/or guardian regarding the historical points, exam findings, and any diagnostic results supporting the discharge/admit diagnosis, lab results, radiology results, the need for outpatient follow up, an ENT specialist, to return to the emergency department if symptoms worsen or persist or if there are any questions or concerns that arise at home. Response to treatment: the patient's symptoms have mildly improved after treatment, and as a result, I will discharge patient. 03/30 21:26 Order name: CBC with Diff; Complete Time: 23:30 03/30 23:30 Interpretation: Normal except: WBC 13.80; HGB 11.4; HCT 35.2; EDMUNDO% 77.5; LYM% 8.9; NEUT cp A 10.7; MNA 1.6. 03/30 21:26 Order name: CMP; Complete Time: 23:30 03/30 23:58 Interpretation: Normal except: AST 13; ALB 3.2; GLOB 4.4; A/G 0.7. 03/30 21:26 Order name: Test, Urine 03/30 21:26 Order name: Urinalysis w/ reflexes 03/30 19:00 Order name: CT Head Brain wo Cont; Complete Time: 20:29 cp 03/30 22:02 Order name: CT Facial Bones W/ Con \T\ Mpr cp 03/30 19:53 Order name: PO challenge; Complete Time: 03:57 cp 03/30 21:26 Order name: IV Saline Lock; Complete Time: 03:57 cp 03/30 21:26 Order name: Labs collected and sent; Complete Time: 03:57 cp Administered Medications: 03/30 18:55 Drug: Oxymetazoline Intranasal Drops (0.05 %) 1 sprays Intranasal once Route: me1 Intranasal; Site: both nares; 19:15 Follow up: Response: No adverse reaction br2 18:55 Drug: Ondansetron PO 4 mg PO once Route: PO; me1 19:15 Follow up: Response: No adverse reaction br2 18:55 Drug: Acetaminophen PO 650 mg PO once Route: PO; me1 19:15 Follow up: Response: No adverse reaction; Pain is decreased br2 21:09 Drug: metoCLOPramide IM 10 mg IM once Route: IM; Site: right gluteus; br2 21:35 Follow up: Response: No adverse reaction br2 21:09 Drug: diphenhydrAMINE IM 25 mg IM once Route: IM; Site: right gluteus; br2 21:35 Follow up: Response: No adverse reaction br2 21:10 Drug: Ketorolac IM 30 mg IM once Route: IM; Site: right gluteus; br2 21:35 Follow up: Response: No adverse reaction br2 22:20 CANCELLED (Physician Discretion): [id number] mg IVP once cp 22:30 Drug: Dexamethasone IVP 10 mg IVP once; (not to exceed 40 mg) Route: IVP; Site: right br2 antecubital; 23:00 Follow up: Response: No adverse reaction br2 22:30 Drug: Famotidine IVP 20 mg IVP once; dilute with 10 mL 0.9% NaCl; give over 2 minutes br2 Route: IVP; Site: right antecubital; 23:00 Follow up: Response: No adverse reaction br2 22:30 Drug: diphenhydrAMINE IVP 25 mg IVP once Route: IVP; Site: right antecubital; br2 23:00 Follow up: Response: No adverse reaction; Pain is decreased br2 11/03 00:34 Drug: Clindamycin IVPB 600 mg IVPB once over 30 mins; (mix in 50 mL) Route: IVPB; br2 Infused Over: 30 mins; Site: right antecubital; 01:00 Follow up: Response: No adverse reaction; IV Intake: 50ml br2 00:34 Drug: Trimethoprim-Sulfamethoxazole PO (160 mg-800 mg (DS) 1 tablet PO once Route: PO; br2 01:00 Follow up: Response: No adverse reaction br2 Disposition: 04/01 00:12 Chart complete. cp Disposition Summary: 03/31/24 00:29 Discharge Ordered Notes: Location: Home(03/31/24 00:29) cp Problem: new(03/31/24 00:29) cp Symptoms: have improved(03/31/24 00:29) cp Condition: Stable(03/31/24 00:29) cp Diagnosis - Cellulitis of face cp - Septal Perforation cp - Acute sinusitis, unspecified cp Followup: cp - With: Suha Matthews MD - When: 1 week - Reason: Recheck today's complaints Discharge Instructions: - Discharge Summary Sheet cp - Cellulitis, Adult cp - Sinusitis, Adult cp Forms: - Medication Reconciliation Form cp - Antibiotic Education cp - Prescription Opioid Use cp - Patient Portal Instructions cp - Leadership Thank You Letter cp Prescriptions: - mupirocin 2 % Topical ointment - apply 1 application TOPICAL route 3 times per day apply to nasal passages as cp directed; 30 gram tube; Refills: 0, Product Selection Permitted - Clindamycin HCl 300 mg Oral Capsule - take 1 capsule ORAL route every 6 hours for 10 days; 40 capsule; Refills: 0, cp Product Selection Permitted - Zyrtec-D 5-120 mg Oral Tablet Sustained Release 12 hr - take 1 tablet ORAL route every 12 hours As needed; 20 tablet; Refills: 0, cp Product Selection Permitted - Bactrim DS 800-160 mg Oral Tablet - take 1 tablet ORAL route every 12 hours for 10 days; 20 tablet; Refills: 0, cp Product Selection Permitted Signatures: Dispatcher [employer] Tod Coe PA PA cp Tere Strauss RN RN me1 Meri Silver RN RN br2 Corrections: (The following items were deleted from the chart) 11/02 21:25 21:06 Home cp cp : 21: new cp cp : 21: have improved cp cp : 21: Stable cp cp : 21: Nasal congestion cp cp : 21: Epistaxis - resolved cp cp : 21: Headache cp cp : 21:07 Nausea cp cp : 21:26 CBC+H.LAB.BRZ ordered. EDMS EDMS 21: COMPREHENSIVE METABOLIC PANEL+C.LAB.BRZ ordered. EDMS EDMS 21:26 Test, Urine+UC.LAB.BRZ ordered. EDMS EDMS 21: Urinalysis+U.LAB.BRZ ordered. EDMS EDMS 22:20 21:44 diphenhydrAMINE IVP 50 mg IVP once ordered. cp cp 04/01 00:11 03/30 18:45 Abdomen/GI: Negative for abdominal pain, vomiting, diarrhea, constipation, cp cp 04/01 00:11 03/30 18:45 Neuro: Negative for altered mental status, dizziness, headache, weakness, cpcp
--- NOTE | 2024-03-30 21:07 | ER ---
Nurse's Notes [facility] Name: Ann Kaufman Age: 28 yrs Sex: Female : 1995 Arrival Date: 03/30/2024 Time: 18:35 Bed 19 Private MD: Diagnosis: Cellulitis of face;Septal Perforation;Acute sinusitis, unspecified Presentation: 03/30 18:37 Chief complaint: EMS states: toned out to the halfway for nose bleed x 3 days from doing me1 cocaine. Reported to EMS that she has 2 oz of cocaine in her vagina. Patient is accompanied by [employer] and is in custody at this time. Coronavirus screen: Vaccine status:. Ebola Screen: No symptoms or risks identified at this time. Initial Sepsis Screen: Does the patient meet any 2 criteria? No. Patient's initial sepsis screen is negative. Does the patient have a suspected source of infection? No. Patient's initial sepsis screen is negative. Risk Assessment: Do you want to hurt yourself or someone else? Patient reports no desire to harm self or others. Onset of symptoms was March 30, 2024. 18:37 Method Of Arrival: EMS: [facility] 18:37 Acuity: DARWIN 4 me1 Triage Assessment: 18:41 General: Appears uncomfortable, well developed, well nourished, Behavior is calm, me1 cooperative, appropriate for age, Reports nose bleed x3 days and facial swelling. Pain: Complains of pain in nose Pain does not radiate. Pain currently is 4 out of 10 on a pain scale. Quality of pain is described as pressure, Pain began suddenly, Is continuous. EENT: Nares with drainage noted with bleeding noted edema noted. Neuro: Level of Consciousness is awake, alert, obeys commands, Oriented to person, place, time, situation, Appropriate for age. Cardiovascular: Patient's skin is warm and dry. Respiratory: Airway is patent Trachea midline Respiratory effort is even, unlabored, Respiratory pattern is regular, symmetrical. GI: No signs and/or symptoms were reported involving the gastrointestinal system. : No signs and/or symptoms were reported regarding the genitourinary system. Derm: Skin is intact, is healthy with good turgor, Skin is pink, warm \T\ dry. Musculoskeletal: No signs and/or symptoms reported regarding the musculoskeletal system. REGISTERED NURSE POST PARTUM: 18:41 LMP N/A - control method, Not me1 Historical: - Allergies: 18:41 No Known Drug Allergies; me1 - PMHx: 18:41 Anxiety; me1 - PSHx: 18:41 tubal ligation; me1 - Immunization history:: Adult Immunizations. - Infectious Disease History:: Denies. - Social history:: Smoking status: Patient reports the use of cigarette tobacco products, smokes one pack cigarettes per day. Screenin:41 [facility] ED Fall Risk Assessment (Adult) History of falling in the last 3 months, me1 including since admission No falls in past 3 months (0 pts) Confusion or Disorientation No (0 pts) Intoxicated or Sedated No (0 pts) Impaired Gait No (0 pts) Mobility Assist Device Used No (0 pt) Altered Elimination No (0 pt) Score/Fall Risk Level 0 - 2 = Low Risk Maintained a safe environment, Provided non-skid footwear, Hourly rounding (assess needs \T\ fall precautionary measures) done. Abuse screen: Denies threats or abuse. Nutritional screening: No deficits noted. Tuberculosis screening: No symptoms or risk factors identified. Assessment: 18:41 General: See triage assessment. . me1 18:45 General: Patient removed a plastic bag with what she says is cocaine from her vagina in me1 front of the officer with EMS as a witness. Officer has possession of the bag and contents. . 19:15 Reassessment: Patient and/or family updated on plan of care and expected duration. Pain br2 level reassessed. Patient is alert, oriented x 3, equal unlabored respirations, skin warm/dry/pink. Pain: Complains of pain in face and scalp Pain does not radiate. Pain currently is 10 out of 10 on a pain scale. Quality of pain is described as throbbing. Neuro: Level of Consciousness is awake, alert, obeys commands, Oriented to person, place, time, situation. EENT: Nares no longer bleeding, c/o feeling stuffy. 20:13 Reassessment: GWEN BRADFORD NOTIFIED OF PT'S PAIN. br2 21:10 Reassessment: Patient and/or family updated on plan of care and expected duration. Pain br2 level reassessed. Patient is alert, oriented x 3, equal unlabored respirations, skin warm/dry/pink. PT C/O PAIN TO NOSE AND HAS SWELLING TO BRIDGE OF NOSE. PROVIDER NOTIFIED. PT GIVEN ICE PACK FOR NOSE AND NEW ORDERS BEING ENTERED FOR CT SCAN. 22:15 Reassessment: Patient and/or family updated on plan of care and expected duration. Pain br2 level reassessed. Patient is alert, oriented x 3, equal unlabored respirations, skin warm/dry/pink. Patient states feeling better. Patient states symptoms have improved. 23:20 Reassessment: Patient and/or family updated on plan of care and expected duration. Pain br2 level reassessed. Patient is alert, oriented x 3, equal unlabored respirations, skin warm/dry/pink. Patient states feeling better. Patient states symptoms have improved. General: Appears comfortable, Behavior is calm, cooperative. Vital Signs: 18:37 BP 120 / 74; Pulse 99; Resp 20; Temp 98.4; Pulse Ox 100% ; Weight 58.97 kg; Height 5 me1 ft. 5 in. ; 19:15 BP 124 / 78; Pulse 88; Resp 18 S; Temp 98.7(TE); Pulse Ox 98% on R/A; Pain 10/10; br2 20:00 BP 138 / 90; Pulse 81; Resp 19 S; Pulse Ox 100% on R/A; br2 21:00 BP 139 / 74; Pulse 72; Resp 16; Pulse Ox 99% ; br2 22:00 BP 127 / 83; Pulse 64; Resp 18; Pulse Ox 98% ; br2 23:00 BP 120 / 80; Pulse 60; Resp 20 S; Temp 97.2(TE); Pulse Ox 99% on R/A; br2 18:37 Body Mass Index 21.63 (58.97 kg, 165.1 cm) me1 19:15 Pain Scale: Adult br2 ED Course: 18:37 Patient arrived in ED. me1 18:41 Triage completed. me1 18:41 Tod Hicks PA is PHCP. cp 18:41 Giuseppe Franklin MD is Attending Physician. cp 18:41 Arm band placed on Patient placed in an exam room. me1 18:41 Patient has correct armband on for positive identification. Bed in low position. Call az1 light in reach. Side rails up X2. Provided Education on: POC. Verbalized understanding. . Client placed on continuous cardiac and pulse oximetry monitoring. NIBP monitoring applied. Pulse ox on. NIBP on. 18:41 No provider procedures requiring assistance completed. Patient did not have IV access me1 during this emergency room visit. 18:55 Tere Strauss, RN is Primary Nurse. me1 19:44 Tod Queen MD is Attending Physician. cp 19:46 CT Head Brain wo Cont In Process Unspecified. EDMS 21:20 Inserted saline lock: 20 gauge in right antecubital area, using aseptic technique. br2 Blood collected. Flushed with 10 mL NS. 23:03 CT Facial Bones W/ Con \T\ Mpr In Process Unspecified. EDMS 11 00:27 Suha Matthews MD is Referral Physician. cp 00:45 IV discontinued, intact, bleeding controlled, No redness/swelling at site. Pressure br2 dressing applied. Administered Medications: 11/02 18:55 Drug: Oxymetazoline Intranasal Drops (0.05 %) 1 sprays Intranasal once Route: me1 Intranasal; Site: both nares; 19:15 Follow up: Response: No adverse reaction br2 18:55 Drug: Ondansetron PO 4 mg PO once Route: PO; me1 19:15 Follow up: Response: No adverse reaction br2 18:55 Drug: Acetaminophen PO 650 mg PO once Route: PO; me1 19:15 Follow up: Response: No adverse reaction; Pain is decreased br2 21:09 Drug: metoCLOPramide IM 10 mg IM once Route: IM; Site: right gluteus; br2 21:35 Follow up: Response: No adverse reaction br2 21:09 Drug: diphenhydrAMINE IM 25 mg IM once Route: IM; Site: right gluteus; br2 21:35 Follow up: Response: No adverse reaction br2 21:10 Drug: Ketorolac IM 30 mg IM once Route: IM; Site: right gluteus; br2 21:35 Follow up: Response: No adverse reaction br2 22:20 CANCELLED (Physician Discretion): [id number] mg IVP once cp 22:30 Drug: Dexamethasone IVP 10 mg IVP once; (not to exceed 40 mg) Route: IVP; Site: right br2 antecubital; 23:00 Follow up: Response: No adverse reaction br2 22:30 Drug: Famotidine IVP 20 mg IVP once; dilute with 10 mL 0.9% NaCl; give over 2 minutes br2 Route: IVP; Site: right antecubital; 23:00 Follow up: Response: No adverse reaction br2 22:30 Drug: diphenhydrAMINE IVP 25 mg IVP once Route: IVP; Site: right antecubital; br2 23:00 Follow up: Response: No adverse reaction; Pain is decreased br2 03/31 00:34 Drug: Clindamycin IVPB 600 mg IVPB once over 30 mins; (mix in 50 mL) Route: IVPB; br2 Infused Over: 30 mins; Site: right antecubital; 01:00 Follow up: Response: No adverse reaction; IV Intake: 50ml br2 00:34 Drug: Trimethoprim-Sulfamethoxazole PO (160 mg-800 mg (DS) 1 tablet PO once Route: PO; br2 01:00 Follow up: Response: No adverse reaction br2 Medication: 03/30 18:41 VIS not applicable for this client. me1 Intake: 03/31 01:00 IV: 50ml; Total: 50ml. br2 Outcome: 03/30 21:06 Discharge ordered by . subhash 03/31 00:29 Discharge ordered by MD. cp 00:58 Discharged to Law Enforcement br2 00:58 Condition: improved 00:58 Discharge instructions given to patient, Instructed on discharge instructions, follow up and referral plans. medication usage, Demonstrated understanding of instructions, follow-up care, medications, Prescriptions given X 4, 01:16 Patient left the ED. br2 Signatures: Dispatcher [employer] [facility] Tod Hicks PA PA cp Tere Strauss RN RN me1 Meri Silver RN RN br2 Corrections: (The following items were deleted from the chart) 03/30 19:15 18:37 Chief complaint: EMS states: toned out to the halfway for nose bleed x 3 days from me1 doing cocaine. Reported to EMS that she has 2 oz of cocaine in her vagina. az1 23:27 21:10 Reassessment: Patient and/or family updated on plan of care and expected br2 duration. Pain level reassessed. Patient is alert, oriented x 3, equal unlabored respirations, skin warm/dry/pink. PT C/O PAIN TO NOSE AND HAS SWELLING TO BRIDGE OF NOSE. PROVIDER NOTIFIED. br2 03/31 03:53 03/30 21:00 BP 127 / 83; Pulse 64bpm; Resp 18bpm; Pulse Ox 98%; br2 br2 03/31 03:56 03/30 22:15 Inserted saline lock: 20 gauge in right antecubital area, using aseptic br2 technique. Blood collected. Flushed with 10 mL NS br2
[2024-03-30] MEDS ORDERED: FAMOTIDINE 20 MG/2 ML VIAL IV ONE (22:20)
[2024-03-30] MEDS ORDERED: dexAMETHasone 10 MG/ML VIAL ONE (22:20)
[2024-03-30 22:24] LABS: AST/SGOT 13 U/L (15-37); Albumin 3.2 g/dL (3.4-5.0); Albumin/Globulin Ratio 0.7 (1.1-1.8); Alkaline Phosphatase 64 U/L (45-117); Anion Gap 6.5 mEq/L (5.0-15.0); BUN Blood Urea Nitrogen 7 mg/dL (7-18); Bicarbonate 30 mEq/L (21-32); Bilirubin Total 0.5 mg/dL (0.2-1.0); Globulin 4.4 g/dL (2.3-3.5); Glomerular Filtration Rate 94 ml/min (=/>90); Glucose Level 102 mg/dL (74-106); Potassium 3.5 mEq/L (3.5-5.1); Protein, Total 7.6 g/dL (6.4-8.2); Sodium Level 137 mEq/L (136-145)
[2024-03-30 22:26] LABS: ALT/SGPT < 14 U/L (13-56)
[2024-03-30 22:35] LABS: Absolute Basophils 0.1 K/uL (0-0.5); Absolute Eosinophils 0.2 K/uL (0-0.5); Absolute Lymphocytes (CBC) 1.2 K/uL (0.7-4.9); Absolute Monocytes 1.6 K/uL (0.1-1.3); Absolute Neutrophil 10.7 K/uL (1.8-8.0); Basophils % 0.8 % (0-1.3); Eosinophils % 1.4 % (0-4.4); Hematocrit 35.2 % (36.0-45.0); Hemoglobin 11.4 g/dL (12.0-15.0); Lymphocytes % 8.9 % (15.3-44.8); MCH 29.4 pg (27.0-35.0); MCHC 32.4 g/dL (32.0-36.0); MCV 90.9 fL (80-100); Monocytes % 11.4 % (3.3-12.3); Neutrophils % 77.5 % (41.7-73.7); Platelets 249 thou/uL (152-406); RBC Red Blood Cell Count 3.87 M/uL (3.86-4.86); Red Cell Distribution Width 13.7 % (12.1-15.2)
--- NOTE | 2024-03-31 00:14 | RAD REPORT ---
EXAM: CT Maxillofacial With Intravenous Contrast CLINICAL HISTORY: The patient is 28 years old and is Female; SWELLING TECHNIQUE: Axial computed tomography images of the face with intravenous contrast. Sagittal and c oronal reformatted images were created and reviewed. This CT exam was performed using one or more of the following dose reduction techniques: automated exposure control, adjustment of the mA and/or kV according to patient size, and/or use of iterative reconstruction technique. COMPARISON: No relevant prior studies available. FINDINGS: Bones/joints: No acute fracture. Soft tissues: There is erosion of the cartilaginous nasal septum with associated mucosal thickeni ng/soft tissue swelling consistent with nasal septal perforation. Orbits: Right temporal/pterional and right orbital postsurgical changes. Sinuses: Maxillary sinus mucosal thickening. Ethmoid sinus mucosal thickening. No air-fluid levels. IMPRESSION: There is erosion of the cartilaginous nasal septum with associated mucosal thickening/soft tissue s welling consistent with nasal septal perforation. Electronically signed by: Rolan Sauer MD 03/31/2024 12:09 AM CDT 8 Due to temporary technical issues with the PACS/[employer] reporting system, reports are being whit d by the in-house radiologist without review as a courtesy to ensure prompt reporting the interpreting radiologist is fully responsible for the content of the report. Transcribed Date/Time: 03/31/2024 12:14 AM
[2024-03-31] MEDS ORDERED: CLINDAMYCIN 600MG/D5W 50 ML IV ONE (00:22)
[2024-03-31] MEDS ORDERED: SMZ./TMP. 800/160 MG TABLET ONE (00:22)
[2024-03-31 01:38] VITALS: TEMP 98.7
[2024-03-31 01:49] VITALS: BP 127/83; O2SAT 98
== END 2024-03-31 01:16 | disposition home or self-care (01) ==
LOC: ER 18:35
DX: L03.211 Cellulitis of face (principal); J34.89 Other specified disorders of nose and nasal sinuses; J01.90 Acute sinusitis, unspecified
CPT/HCPCS: 36415; 70450; 70487; 76377; 80053; 85025; 96372; 96374; 96375; 99285; J1100; J1200; J2765; Q0162; Q9967